=== PATIENT | male | born 1975 | race African-American/Black ===

== ENCOUNTER 2022-12-11 01:02 | Day surgery (SDC) | payer MEDICARE, MEDICAID, SELFPAY ==
[2022-12-03 11:40] VITALS: BMI 24.3
[2022-12-11 09:08] VITALS: BP 142/90; PULSE 92; RESP 18; TEMP 36.4; O2SAT 100; BMI 22.7
[2022-12-11] MEDS: LACTATED RINGERS 1,000 ML 150 ML IV CONT (09:17)
--- NOTE | 2022-12-11 09:52 | P.PNAN_ITS ---
Anes - Initial Pre Proc Eval Procedure: Operation Date: 12/11/22 09:30 Proposed Procedures p Colonoscopy - Jerry Ordonez MD Date/Time: 12/11/22 09:52 Surgeon: Jerry Ordonez MD Pre Op Diagnosis: Diarrhea,abdominal pain, Patient Data Age: 47 Gender: M Height: 1.85 m Weight: 78.3 kg Last Vital Signs Temp 97.6 F 12/11/22 09:08 Pulse 92 12/11/22 09:08 Resp 18 12/11/22 09:08 BP 142/90 H 12/11/22 09:08 Pulse Ox 100 12/11/22 09:08 O2 Del Method Room Air 12/11/22 09:08 Allergies Allergy/AdvReac Type Severity Reaction Status Date / Time No Known Allergies Allergy Verified 12/11/22 09:07 Home Medications Medication Instructions Recorded Confirmed Type dhhydnt-djohfuewvwfya-pgeiznsw 2 tablet PO BID 01/15/21 12/11/22 History [Excedrin Migraine] lisinopril 40 mg tablet 40 mg PO DAILY 01/15/21 12/11/22 History gabapentin 600 mg tablet 600 mg PO TID 12/03/22 12/11/22 History Patient hx anesthesia problems: none Family hx anesthesia problems: none Results Review: All pre-operative results and documents have been reviewed as part of the pre- operative evaluation. [facility] Past Medical History Medical History (Updated 11/20/22 @ 12:36 by Michelle Fagan APN-Susan) Abdominal pain Abnormal CT scan Diarrhea Hypertension Surgical History Surgical History History of ankle surgery Social History Social History Smoking status: Former smoker Tobacco type: cigarettes Alcohol intake: never Substance use: never Substance use type: does not use Living arrangements: alone Spiritual care concerns: No Anes - Eval Final PreProcedure Day of Procedure 12/11/22 09:52 Patient weight: normal Heart: regular rate and rhythm Lungs: clear to auscultation Airway: Mallampati scale class II Neurological: alert and oriented Last oral intake: >/= 8 hours ASA classification: II Emergent: no Anesthetic plan: proceed Anesthesia type and monitoring: general GIVS and standard monitoring Results Review: All pre-operative results and documents have been reviewed as part of the pre- operative evaluation. Informed Consent: The patient's anesthetic plan and its attendant risks and benefits were discussed with the patient/family/POA. Questions were solicited and answers provided to the satisfaction of the patient/family/POA.
--- NOTE | 2022-12-11 10:04 | WPDHPUPDATE1 ---
History and Physical Update Update Date/Time: 12/11/22 10:04 History and Physical has been reviewed, including an updated exam of the patient. There are NO changes in the patient's condition. Risks, benefits, and alternatives have been discussed and questions answered. Patient agrees to proceed with procedure.
[2022-12-11 10:20] VITALS: BP 96/58; PULSE 98; RESP 27; O2SAT 100
[2022-12-11 10:30] VITALS: BP 121/85; PULSE 95; RESP 20; O2SAT 100
[2022-12-11 10:40] VITALS: BP 142/90; PULSE 100; RESP 22; O2SAT 96
== END 2022-12-11 11:23 | disposition home or self-care (01) ==
PROVIDERS: PCP Internal Medicine; Visit Provider Internal Medicine Gastroenterology
PROC: 0DJD8ZZ Inspection of Lower Intestinal Tract, Via Natural or Artificial Opening Endoscopic (ICD-10-PCS; CPT 45378; principal; 2022-12-11 09:30)
DX: K52.9 Noninfective gastroenteritis and colitis, unspecified (principal); I10 Essential (primary) hypertension; Z79.82 Long term (current) use of aspirin; Z87.891 Personal history of nicotine dependence
CPT/HCPCS: 45380; 88305; J2704; J7120

== ENCOUNTER 2023-02-12 11:57 | Outpatient (CLI) | payer MEDICARE, MEDICAID, SELFPAY ==
[2023-02-12 12:46] LABS: Hematocrit 39.9 % (42.0-52.0); Hemoglobin 12.4 g/dL (14.0-18.0); Mean Corpuscular HGB Conc 31.1 g/dl (32-36); Mean Corpuscular Hemoglobin 26.8 pg (26-34); Mean Corpuscular Volume 86.4 fl (80-100); Mean Platelet Volume 8.7 fl (7.4-10.4); Platelet Count Result 470 k/mm3 (150-375); Red Blood Count 4.62 M/mm3 (4.6-6.20); White Blood Count 9.8 K/mm3 (4.5-10.0)
[2023-02-12 13:02] LABS: Alanine Aminotransferase 18 U/L (6-50); Albumin Level 4.2 g/dL (3.5-5.1); Alkaline Phosphatase 103 U/L (38-126); Anion Gap 9 mmol/L (8-16); Aspartate Amino Transferase 22 U/L (17-59); Bilirubin,Total 0.7 mg/dL (0.2-1.3); Blood Urea Nitrogen 14 mg/dL (9-20); CRP 2.7 mg/dL (<1.0); Calcium 9.9 mg/dL (8.4-10.2); Carbon Dioxide 32 mmol/L (22-30); Chloride 100 mmol/L (98-107); Estimated Glomerular Filt Rate > 60; Glucose 96 mg/dL (65-110); Potassium 3.8 mmol/L (3.4-5.0); Sodium 141 mmol/L (137-145)
[2023-02-12 13:36] LABS: Hepatitis B Surface Antigen Negative (Negative)
[2023-02-12 13:38] LABS: Erythrocyte Sedimentation Rate 26 mm/hr (0-20)
[2023-02-12 13:53] LABS: Hepatitis B Surface Anti Res Negative
[2023-02-16 12:31] LABS: Hepatitis B Core Ab Total Nonreactive (Nonreactive)
[2023-02-17 15:59] LABS: NIL 0.01 IU/mL; Quantiferon TB Plus, 1T NEGATIVE (NEGATIVE)
== END 2023-02-12 11:58 | disposition home or self-care (01) ==
LOC: ANHLAB 12:09
PROVIDERS: PCP Internal Medicine; Visit Provider Internal Medicine Gastroenterology
DX: K51.90 Ulcerative colitis, unspecified, without complications (principal); K52.9 Noninfective gastroenteritis and colitis, unspecified; I10 Essential (primary) hypertension
CPT/HCPCS: 36415; 80053; 85027; 85652; 86140; 86480; 86704; 86706; 87340

== ENCOUNTER 2023-08-22 08:06 | Outpatient (CLI) | payer MEDICARE, MEDICAID, SELFPAY ==
[2023-08-22 08:50] LABS: Hematocrit 39.5 % (42.0-52.0); Hemoglobin 12.3 g/dL (14.0-18.0); Mean Corpuscular HGB Conc 31.1 g/dl (32-36); Mean Corpuscular Hemoglobin 26.5 pg (26-34); Mean Corpuscular Volume 84.9 fl (80-100); Mean Platelet Volume 8.6 fl (7.4-10.4); Platelet Count Result 397 k/mm3 (150-375); Red Blood Count 4.65 M/mm3 (4.6-6.20); Red Cell Distribution Width 17.2 % (11.5-14.5)
[2023-08-22 09:09] LABS: Alanine Aminotransferase 42 U/L (6-50); Albumin Level 4.3 g/dL (3.5-5.1); Alkaline Phosphatase 514 U/L (38-126); Anion Gap 8 mmol/L (4-12); Aspartate Amino Transferase 56 U/L (17-59); Bilirubin,Total 1.3 mg/dL (0.2-1.3); Blood Urea Nitrogen 14 mg/dL (9-20); CRP 0.6 mg/dL (<1.0); Calcium 9.3 mg/dL (8.4-10.2); Carbon Dioxide 31 mmol/L (22-30); Chloride 104 mmol/L (98-107); Estimated Glomerular Filt Rate > 60; Glucose 96 mg/dL (65-110); Potassium 3.4 mmol/L (3.4-5.0); Sodium 143 mmol/L (137-145)
[2023-08-22 09:38] LABS: Erythrocyte Sedimentation Rate 27 mm/hr (0-20)
== END 2023-08-22 08:07 | disposition home or self-care (01) ==
LOC: ANHLAB 08:09
PROVIDERS: PCP Internal Medicine; Visit Provider Internal Medicine Gastroenterology
DX: K51.90 Ulcerative colitis, unspecified, without complications (principal); K52.9 Noninfective gastroenteritis and colitis, unspecified
CPT/HCPCS: 36415; 80053; 85027; 85652; 86140

== ENCOUNTER 2024-02-19 08:23 | Day surgery (SDC) | payer MEDICARE, MEDICAID, SELFPAY ==
[2023-12-26 13:27] VITALS: BMI 22.3
[2024-02-02 11:28] VITALS: BMI 23.6
[2024-02-19 10:04] VITALS: BP 145/98; PULSE 88; RESP 18; TEMP 37.3; O2SAT 98; BMI 23.6
[2024-02-19] MEDS: LACTATED RINGERS 1,000 ML 150 ML IV CONT (10:30)
--- NOTE | 2024-02-19 10:41 | PM.HPGS ---
History of Present Illness History of Present Illness Consent: Risks, benefits, and alternatives have been discussed and questions answered. Patient agrees to proceed with procedure. Chief complaint: Ulcerative colitis Narrative: Miki Velez is a 48 year old male referred for follow up colonoscopy. Patient has a distant history of ulcerative colitis. Apparently treated many years ago. he stopped his medication and remained symptom free for many years. One year ago colonoscopy was performed and revealed diffuse pancolitis consistent with ulcerative colitis flare. Patient initially given prednisone and mesalamine. He has remained on mesalamine 1.2g p.o. t.i.d.. Currently he reports his bowel habits are normal. He may even have a tendency towards constipation. He denies abdominal pain or blood in his stool. He returns today for follow-up colonoscopy to assess response to therapy. Family history is noncontributory. Patient has a past medical history of ankle neuropathy and orthopedic problems. Review of Systems Review of Systems: All systems reviewed & are unremarkable except as noted in HPI and below PMFSH Past Medical History Medical History Abdominal pain Abnormal CT scan Back pain Bilateral sacroiliitis Diarrhea Fatigue Hypertension Normocytic anemia Ulcerative colitis Surgical History Surgical History History of ankle surgery Social History Social History Smoking status: Former smoker Tobacco type: cigarettes Alcohol intake: never Drinks per week: 1 Substance use: never Substance use type: does not use Living arrangements: alone Spiritual care concerns: No Meds Home Medications and Allergies Home Medications ?Medication ?Instructions ?Recorded ?Confirmed ?Type lisinopril 40 mg tablet 40 mg PO DAILY 01/15/21 02/19/24 History gabapentin 600 mg tablet 600 mg PO TID 12/03/22 02/19/24 History mesalamine 1.2 gram tablet,delayed 3.6 g (3 x 1.2 gram) PO DAILY 1 08/21/23 02/19/24 Rx release (Lialda) month #90 tabs polyethylene glycol 3350 17 17 g PO DAILY PRN constipation 12/26/23 02/19/24 Rx gram/dose oral powder (Miralax) #238 grams Allergies Allergy/AdvReac Type Severity Reaction Status Date / Time No Known Allergies Allergy Verified 02/19/24 10:03 Vital Signs Vital Signs - 24 hr 02/19/24 10:04 Temperature 99.2 F Pulse Rate 88 Respiratory Rate 18 Blood Pressure 145/98 H Pulse Oximetry 98 Oxygen Delivery Room Air Exam Narrative: Physical exam reveals patient to be alert. Vital signs stable. HEENT exam is unremarkable. Patient is anicteric. Lungs are clear to auscultation and to percussion. Heart is without murmur or extra sounds. Abdomen bowel sounds are present soft nontender with no hepatosplenomegaly. Digital external rectal exam is normal. Assessment and Plan Assessment and plan (1) Ulcerative colitis: Code(s): K51.90 - Ulcerative colitis, unspecified, without complications Status: Acute Assessment and Plan: Diagnosis of ulcerative colitis. Plan for colonoscopy at this time after 1 year treatment with mesalamine. Patient denies symptoms. He denies abdominal pain and bleeding at this time. His bowel habits were reported to be normal.
--- NOTE | 2024-02-19 11:14 | P.PNAN_ITS ---
Anes - Initial Pre Proc Eval Procedure: Operation Date: 02/19/24 11:15 Proposed Procedures p Diagnostic Colonoscopy - Darius Davis MD Date/Time: 02/19/24 11:14 Surgeon: Darius Davis MD Pre Op Diagnosis: Ulcerative colitis Patient Data Age: 48 Gender: M Height: 1.85 m Weight: 81 kg Last Vital Signs Temp 37.3 C 02/19/24 10:04 Pulse 88 02/19/24 10:04 Resp 18 02/19/24 10:04 BP 145/98 H 02/19/24 10:04 Pulse Ox 98 02/19/24 10:04 O2 Del Method Room Air 02/19/24 10:04 Allergies Allergy/AdvReac Type Severity Reaction Status Date / Time No Known Allergies Allergy Verified 02/19/24 10:03 Home Medications ?Medication ?Instructions ?Recorded ?Confirmed ?Type lisinopril 40 mg tablet 40 mg PO DAILY 01/15/21 02/19/24 History gabapentin 600 mg tablet 600 mg PO TID 12/03/22 02/19/24 History mesalamine 1.2 gram tablet,delayed 3.6 g (3 x 1.2 gram) PO DAILY 1 08/21/23 02/19/24 Rx release (Lialda) month #90 tabs polyethylene glycol 3350 17 17 g PO DAILY PRN constipation 12/26/23 02/19/24 Rx gram/dose oral powder (Miralax) #238 grams Patient hx anesthesia problems: none Family hx anesthesia problems: none Results Review: All pre-operative results and documents have been reviewed as part of the pre- operative evaluation. [facility] Past Medical History Medical History Normocytic anemia Fatigue Bilateral sacroiliitis Back pain Ulcerative colitis Abdominal pain Diarrhea Abnormal CT scan Hypertension Surgical History Surgical History History of ankle surgery Social History Social History Smoking status: Former smoker Tobacco type: cigarettes Alcohol intake: never Drinks per week: 1 Substance use: never Substance use type: does not use Living arrangements: alone Spiritual care concerns: No Anes - Eval Final PreProcedure Day of Procedure 02/19/24 11:14 Patient weight: normal Heart: regular rate and rhythm Lungs: clear to auscultation Airway: Mallampati scale class II Neurological: alert and oriented Last oral intake: >/= 8 hours ASA classification: II Emergent: no Anesthesia type and monitoring: general GIVS and standard monitoring Results Review: All pre-operative results and documents have been reviewed as part of the pre- operative evaluation. Informed Consent: The patient's anesthetic plan and its attendant risks and benefits were discussed with the patient/family/POA. Questions were solicited and answers provided to the satisfaction of the patient/family/POA.
[2024-02-19 11:44] VITALS: BP 100/74; PULSE 100; RESP 14; O2SAT 98
[2024-02-19 11:54] VITALS: BP 133/88; PULSE 88; RESP 16; O2SAT 100
--- NOTE | 2024-02-19 12:01 | WPDANESPN ---
Anes - Prog Note Post-Op Date/Time: 02/19/24 12:01 Cardiovascular status: normal Respiratory status: normal Airway patency: baseline Mental status: baseline Post-Op hydration status: normal Vital Signs: Last Vital Signs Temp 37.3 C 02/19/24 10:04 Pulse 100 02/19/24 11:44 Resp 14 02/19/24 11:44 BP 100/74 02/19/24 11:44 Pulse Ox 98 02/19/24 11:44 O2 Del Method Room Air 02/19/24 11:44 Pain Score (VAS): 0/10 I/O: Intake & Output 02/18/24 02/19/24 02/19/24 23:59 07:59 15:59 Intake Total 300 Balance 300 Patient Feedback: Patient satisfied with anesthetic care.
[2024-02-19 12:04] VITALS: BP 142/95; PULSE 85; RESP 16; O2SAT 99
== END 2024-02-19 12:40 | disposition home or self-care (01) ==
PROVIDERS: PCP Internal Medicine; Visit Provider Internal Medicine Gastroenterology
PROC: 0DJD8ZZ Inspection of Lower Intestinal Tract, Via Natural or Artificial Opening Endoscopic (ICD-10-PCS; CPT 45378; principal; 2024-02-19 11:15)
DX: K51.00 Ulcerative (chronic) pancolitis without complications (principal); K63.3 Ulcer of intestine
CPT/HCPCS: 45380

== ENCOUNTER 2024-02-19 08:45 | Outpatient (NON) | payer MEDICARE, MEDICAID, SELFPAY | END 2024-02-19 08:46 | disposition home or self-care (01) | LOC: ANHLAB 02-20 08:47 | PROVIDERS: PCP Internal Medicine; Visit Provider Internal Medicine Gastroenterology | DX: K51.90 Ulcerative colitis, unspecified, without complications (principal) | CPT/HCPCS: 88305 ==

== ENCOUNTER 2024-02-26 08:33 | Outpatient (CLI) | payer MEDICARE, MEDICAID, SELFPAY ==
[2024-02-26 09:33] LABS: Hematocrit 42.9 % (42.0-52.0); Hemoglobin 13.6 g/dL (14.0-18.0); Mean Corpuscular HGB Conc 31.7 g/dl (32-36); Mean Corpuscular Volume 85.1 fl (80-100); Mean Platelet Volume 8.4 fl (7.4-10.4); Platelet Count Result 398 k/mm3 (150-375); Red Blood Count 5.04 M/mm3 (4.6-6.20); Red Cell Distribution Width 14.5 % (11.5-14.5); White Blood Count 7.8 K/mm3 (4.5-10.0)
[2024-02-26 09:55] LABS: Alanine Aminotransferase 63 U/L (6-50); Albumin Level 4.1 g/dL (3.5-5.1); Alkaline Phosphatase 549 U/L (38-126); Anion Gap 6 mmol/L (4-12); Aspartate Amino Transferase 75 U/L (17-59); Bilirubin,Total 0.9 mg/dL (0.2-1.3); Blood Urea Nitrogen 12 mg/dL (9-20); CRP 1.3 mg/dL (<1.0); Calcium 9.8 mg/dL (8.4-10.2); Carbon Dioxide 29 mmol/L (22-30); Chloride 104 mmol/L (98-107); Estimated Glomerular Filt Rate > 60; Glucose 120 mg/dL (65-110); Potassium 4.3 mmol/L (3.4-5.0); Sodium 139 mmol/L (137-145)
[2024-02-26 13:26] LABS: Erythrocyte Sedimentation Rate 13 mm/hr (0-20)
== END 2024-02-26 08:34 | disposition home or self-care (01) ==
LOC: ANHLAB 08:38
PROVIDERS: PCP Internal Medicine; Visit Provider Internal Medicine Gastroenterology
DX: K51.90 Ulcerative colitis, unspecified, without complications (principal); K52.9 Noninfective gastroenteritis and colitis, unspecified
CPT/HCPCS: 36415; 80053; 85027; 85652; 86140

== ENCOUNTER 2024-03-02 10:23 | Outpatient (CLI) | payer MEDICARE, MEDICAID, SELFPAY ==
[2024-03-08 18:18] LABS: Calprotectin, Stool 3880 mcg/g
== END 2024-03-02 10:24 | disposition home or self-care (01) ==
LOC: ANHLAB 10:24
PROVIDERS: PCP Internal Medicine; Visit Provider Internal Medicine Gastroenterology
DX: K51.90 Ulcerative colitis, unspecified, without complications (principal)
CPT/HCPCS: 83993

== ENCOUNTER 2024-05-26 10:00 | Outpatient (CLI) | payer MEDICARE, MEDICAID, SELFPAY ==
--- NOTE | ~2024-05-26 | US_ITS ---
Limited Abdominal Sonogram: Real-time sonographic imaging of the right upper quadrant was performed. Clinical History: Ulcerative colitis Findings: The liver appears normal with no evidence of mass lesion or bile duct dilatation. Main por ry vein demonstrates normal direction of flow. The gallbladder is well distended, and appears normal with no evidence of gallstone or wall thickening. The common bile duct measures 4 mm. The visualize d pancreas, aorta, and IVC are unremarkable. Impression: No significant abnormality seen. Reviewed, dictated and finalized at location . Impression: No significant abnormality seen.
== END 2024-05-26 10:01 | disposition home or self-care (01) ==
PROVIDERS: PCP Internal Medicine Gastroenterology; Visit Provider Internal Medicine Gastroenterology
DX: K51.90 Ulcerative colitis, unspecified, without complications (principal); R10.9 Unspecified abdominal pain; R74.8 Abnormal levels of other serum enzymes
CPT/HCPCS: 76705

== ENCOUNTER 2024-09-22 09:05 | Outpatient (CLI) | payer MEDICARE, MEDICAID, SELFPAY ==
--- OUTSIDE RECORDS SUMMARY | 2024-09-22 09:14 | XMS_ITS | Encounter Summary ---
Author Organization [facility] Address [address] [place] [address] Care Team Providers Care Communications Writer Name Role Phone Shea Chauhan RN Unavailable Unavailable Juancho Medina MD Primary Care Provider [phone] Scottie Velez MD Primary Care Provider [phone] Reason for Visit * Reason Onset Date Comments General 11/18/2018 Encounter Details Date Type Department Care Team (Late st Contact Info) Description 11/18/2018 Telephone [facility] - [facility] [address] [place] [phone] Jenna Palmer General Social History Tobacco Use Types Packs/Day Years Used Date Smoking Tobacco: Some Days Cigars Smokeless Tobacco: Never Comments:cutting back Alcohol Use Standard Drinks/Week Comments Not Asked 6 (1 standard drink = 0.6 oz pur e alcohol) Sex and Gender Information Value Date Recorded Sex Assigned at Not on file Legal Sex Male 11:37 AM CDT Gender Identity Not on file Sexual Orientation Not on file documented as of this encounter Functional Status * Is person deaf or have serious hearing difficulty? Answer Date of Assessment Author No 10/07/2018 4:30 PM Chaparrita Aguilar RN * Is person blind or have serious difficulty seeing? Answer Date of Assessment Author No 10/07/2018 4:30 PM Chaparrita Aguilar RN * Does person have serious difficulty walking/climbing stairs? Answer Date of Assessment Author No 10/07/2018 4:30 PM Chaparrita Aguilar RN * Does person have difficulty dressing/bathing? Answer Date of Assessment Author No 10/07/2018 4:30 PM CDT Chaparrita Boyce RN * Does person have difficulty doing errands alone? Answer Date of Assessment Author No 10/07/2018 4:30 PM CDT Chaparrita Boyce RN documented as of this encounter Mental Status * Does person have difficulty concentrating/remembering/making decisions? Answer Entry Date Author No 10/07/2018 4:30 PM CDT Chaparrita Boyce RN documented in this encounter Miscellaneous Notes * Telephone Encounter - Jenna Palmer - 11/18/2018 11:24 AM CDT Mr. Velez called several times requesting to speak with nurse Kimmie, I explained to patient that she was not in the office at this time and I can route a message for another nurse that's assisting her while she is out. He states that he needs someone to call him MODE about an order and medications. Patient call back number is [phone]. documented in this encounter Plan of Treatment Not on file documented as of this encounter Visit Diagnoses Not on filedocumented in this encounter Additional Health Concerns Infection Onset Date Last Indicated Resolved Time COVID-19 Under Investigation 04/08/2020 04/08/2020 04/08/2020 12:50 PM RUG CLIPPER COVID-19 Confirmed 04/08/2020 04/08/2020 4:33 AM RUG CLIPPER documented as of this encounter Care Teams Communications Writer Relationship Specialty Start Date End Date Juancho Medina MD [address] [place] [phone] PCP - General 12/03/17 08/24/24 Scottie Velez MD [address] [place] [phone] PCP - General Gastroenterology 08/25/24 Shea Chauhan RN Registered Nurse 09/03/17 documented as of this encounter
--- OUTSIDE RECORDS SUMMARY | 2024-09-22 09:14 | XMS_ITS | Encounter Summary ---
Author Organization [facility] Address [address] [place] [address] Care Team Providers Care Junior Systems Engineer Name Role Phone Shea Chauhan RN Unavailable Unavailable Juancho Medina MD Primary Care Provider [phone] Scottie Velez MD Primary Care Provider [phone] Reason for Visit * Reason Onset Date Comments General 01/01/2018 Encounter Details Date Type Department Care Team (Late st Contact Info) Description 01/01/2018 Telephone [facility] [address] [place] [phone] Jenna Palmer General Social History Tobacco Use Types Packs/Day Years Used Date Smoking Tobacco: Some Days Cigars Smokeless Tobacco: Never Comments:cutting back Alcohol Use Standard Drinks/Week Comments No 0 (1 standard drink = 0.6 oz pur e alcohol) Sex and Gender Information Value Date Recorded Sex Assigned at Not on file Legal Sex Male 11:37 AM CDT Gender Identity Not on file Sexual Orientation Not on file documented as of this encounter Functional Status * Is person deaf or have serious hearing difficulty? Answer Date of Assessment Author No 06/05/2016 8:16 AM ADWOAT Marylou Christianson RN * Is person blind or have serious difficulty seeing? Answer Date of Assessment Author No 06/05/2016 8:16 AM Marylou Rendon RN * Does person have serious difficulty walking/climbing stairs? Answer Date of Assessment Author No 06/05/2016 8:16 AM Marylou Rendon RN * Does person have difficulty dressing/bathing? Answer Date of Assessment Author No 06/05/2016 8:16 AM Marylou Rendon RN * Does person have difficulty doing errands alone? Answer Date of Assessment Author No 06/05/2016 8:16 AM Marylou Rendon RN documented as of this encounter Mental Status * Does person have difficulty concentrating/remembering/making decisions? Answer Entry Date Author No 06/05/2016 8:16 AM Marylou Rendon RN documented in this encounter Plan of Treatment Not on file documented as of this encounter Visit Diagnoses Not on filedocumented in this encounter Additional Health Concerns Infection Onset Date Last Indicated Resolved Time COVID-19 Under Investigation 04/08/2020 04/08/2020 04/08/2020 12:50 PM TAILOR'S AIDE COVID-19 Confirmed 04/08/2020 04/08/2020 4:33 AM TAILOR'S AIDE documented as of this encounter Care Teams Junior Systems Engineer Relationship Specialty Start Date End Date Juancho Medina MD [address] [place] [phone] PCP - General 12/03/17 08/24/24 Scottie Veelz MD [address] [place] [phone] PCP - General Gastroenterology 08/25/24 Shea Chauhan RN Registered Nurse 09/03/17 documented as of this encounter
--- OUTSIDE RECORDS SUMMARY | 2024-09-22 09:14 | XMS_ITS | Encounter Summary ---
Author Organization [facility] Address [address] [place] [address] Care Team Providers Care Refrigeration Specialist Name Role Phone Shea Chauhan RN Unavailable Unavailable Scottie Velez MD Primary Care Provider [phone] Encounter Details Date Type Department Care Team (Late st Contact Info) Description 09/20/2024 Orders Only [facility] - [facility] Surgery [address] [place] [phone] Lacey Miles PA [address] [place] [phone] Bilateral ankle pain, unspecified chronicity Social History Tobacco Use Types Packs/Day Years Used Date Smoking Tobacco: Former Cigars Smokeless Tobacco: Former Alcohol Use Standard Drinks/Week Comments Not Currently 0 (1 standard drink = 0.6 oz pur e alcohol) PHQ-2 Answer Date Recorded Patient Health Questionnaire-2 Score 0 01/22/2024 Sex and Gender Information Value Date Recorded Sex Assigned at Not on file Legal Sex Male 11:37 AM CDT Gender Identity Not on file Sexual Orientation Not on file documented as of this encounter Functional Status * Is person deaf or have serious hearing difficulty? Answer Date of Assessment Author No 04/08/2020 6:00 PM Meseret Jules RN * Is person blind or have serious difficulty seeing? Answer Date of Assessment Author No 04/08/2020 6:00 PM Meseret Jules RN * Does person have serious difficulty walking/climbing stairs? Answer Date of Assessment Author Yes 04/08/2020 6:00 PM Meseret Jules RN * Does person have difficulty dressing/bathing? Answer Date of Assessment Author Yes 04/08/2020 6:00 PM Meseret Jules RN * Does person have difficulty doing errands alone? Answer Date of Assessment Author Yes 04/08/2020 6:00 PM Meseret Jules RN documented as of this encounter Mental Status * Does person have difficulty concentrating/remembering/making decisions? Answer Entry Date Author No 04/08/2020 6:00 PM Meseret Jules RN documented in this encounter Plan of Treatment Scheduled Orders Name Type Priority Associated Diagnoses Orde r Schedule XR Ankle Bilateral 1Vw Imaging Routine Bilateral ankle pain, unspecified chronicity 1 Occurrences starting 09/20/2024 until 09/20/2025 documented as of this encounter Goals Goal Patient Goal Type Associated Problems Recent Progress Patient-Stated? Author PAIN General No Edilson Han RN Note: Expected end date: ongoing Patient's pain/discomfort is manageable. Interventions: Mobility General Improving( 11:13 AM CDT) No Akanksha Romero RN Note: Expected end date: 03/09/21 The goal is to maintain or improve your mobility at the optimum level for you. Interventions: PT documented as of this encounter Visit Diagnoses Diagnosis Bilateral ankle pain, unspecified chronicity- Primary documented in this encounter Care Teams Refrigeration Specialist Relationship Specialty Start Date End Date Scottie Velez MD [address] [place] [address] PCP - General Gastroenterology 08/25/24 Shea Chauhan, RN Registered Nurse 09/03/17 documented as of this encounter
--- OUTSIDE RECORDS SUMMARY | 2024-09-22 09:14 | XMS_ITS | Patient Health Record ---
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 [place] [address] [place] [address] 03/31/2024 Master Mihai Femoral anteversion of both lower extremities Q65.89 ASSESSMENTS Encounter Date Diagnosis Assessment Notes Treatment Notes Treatment Clinical Notes 03/31/2024 Femoral anteversion of both lower extremities (ICD-10 - Q65.89) Miki appears to have a tough problem. There appears to be significant femoral anteversion status post his surgery and I discussed with him that the procedure that would potentially help him would be a another de-rotational osteotomy to correct the anteversion of the femur. I discussed with him that this is a surgery that I do not do nor my skilled in. I did give him referral to see if few orthopedic surgeons at [facility] in [facility] especially trauma physicians that potentially do this more than I do. He was in understanding of this. I will see him back on an as-needed basis. 03/31/[address] scan of the femurs of bilateral hips was brought in by the patient I reviewed it today. It demonstrates increased rotation of bilateral femurs based on the CT scan. PLAN OF TREATMENT No Information Insurance Providers Payer Name Payer Address Payer Phone Subscriber Number Group Number Insured Name Patient Relationship to Insured Coverage Start Date Coverage End Date [place] [address] [address] [place] [phone] [id number] Miki Velez Self - patient is the insured 5
--- OUTSIDE RECORDS SUMMARY | 2024-09-22 09:14 | XMS_ITS | Encounter Summary ---
Author Organization [facility] Address [address] [place] [address] Care Team Providers Care Apparatus Operator Name Role Phone Shea Chauhan RN Unavailable Unavailable Juancho Medina MD Primary Care Provider [phone] Scottie Velez MD Primary Care Provider [phone] Reason for Visit * Reason Onset Date Comments MEDICATION REFILL 11/19/2023 Encounter Details Date Type Department Care Team (Late st Contact Info) Description 11/19/2023 Telephone [facility] Central[facility] Scheduling [address] [place] [phone] Yash Hanks MD [address] [place] [phone] MEDICATION REFILL Social History Tobacco Use Types Packs/Day Years Used Date Smoking Tobacco: Former Cigars Smokeless Tobacco: Former Alcohol Use Standard Drinks/Week Comments Not Currently 0 (1 standard drink = 0.6 oz pur e alcohol) PHQ-2 Answer Date Recorded PHQ2 TOTAL SCORE 0 04/24/2021 Sex and Gender Information Value Date Recorded [...] Meseret Jules RN documented in this encounter Miscellaneous Notes * Telephone Encounter - Elmer Barton - 11/19/2023 12:07 PM CDT Patient needs a medication refill for: gabapentin (Neurontin) 600 MG tablet documented in this encounter Plan of Treatment Not on file documented as of this encounter Goals Goal [...] Diagnoses Not on filedocumented in this encounter Care Teams Apparatus Operator Relationship Specialty Start Date End Date Juancho Medina MD [address] [place] [phone] PCP - General 12/03/17 08/24/24 Scottie Velez MD [address] [place] [address] PCP - General Gastroenterology 08/25/24 Shea Chahuan RN Registered Nurse 09/03/17 documented as of this encounter
--- OUTSIDE RECORDS SUMMARY | 2024-09-22 09:14 | XMS_ITS | Encounter Summary ---
Author Organization [facility] Address [address] [place] [address] Care Team Providers Care Trail Maintenance Worker Name Role Phone Shea Chauhan RN Unavailable Unavailable Juancho Medina MD Primary Care Provider [phone] Scottie Velez MD Primary Care Provider [phone] Reason for Visit * Reason Onset Date Comments MEDICATION REFILL 05/01/2020 Encounter Details Date Type Department Care Team (Late st Contact Info) Description 05/01/2020 Refill [facility] [address] [facility] [place] [address] Evy Parks, RN [address] [facility] [address] [place] [address] MEDICATION REFILL Social History Tobacco Use Types Packs/Day Years Used Date Smoking Tobacco: Former Cigars Smokeless Tobacco: Former Alcohol Use Standard Drinks/Week Comments Yes 0 (1 standard drink = 0.6 oz pure alcohol) 1 DRINK MAYBE 2-3 TIMES [facility] Sex and Gender Information Value Date Recorded Sex Assigned at Not on file Legal Sex Male 11:37 AM CDT Gender Identity Not on file Sexual Orientation Not on file COVID-19 Exposure Response Date Recorded In the last month, have you been in contact with someone who was confirmed or suspected to have Coronavirus / COVID-19? No / Unsure 04/27/2020 12:26 PM LIBRARY MEDIA ASSISTANT documented as of this encounter Functional Status * Is person deaf or have serious hearing difficulty? Answer Date of Assessment Author No 04/08/2020 6:00 PM LIBRARY MEDIA ASSISTANT Meseret Kapoor RN * Is person blind or have serious difficulty seeing? Answer Date of Assessment Author No 04/08/2020 6:00 PM LIBRARY MEDIA ASSISTANT Meseret Kapoor RN * Does person have serious difficulty walking/climbing stairs? Answer Date of Assessment Author Yes 04/08/2020 6:00 PM Meseret Jules RN * Does person have difficulty dressing/bathing? Answer Date of Assessment Author Yes 04/08/2020 6:00 PM LIBRARY MEDIA ASSISTANT Meseret Kapoor RN * Does person have difficulty doing errands alone? Answer Date of Assessment Author Yes 04/08/2020 6:00 PM Meseret Jules RN documented as of this encounter Mental Status * Does person have difficulty concentrating/remembering/making decisions? Answer Entry Date Author No 04/08/2020 6:00 PM Meserte Jules RN documented in this encounter Miscellaneous Notes * Telephone Encounter - Evy Parks RN - 05/01/2020 5:18 PM CST Mr. Velez called in to request one more refill of his percocet. He states that the pain is improving a lot since his second hip surgery and he is starting to wean off the medication. Last hydrocodone (#20) prescribed on 04/27/20. Last oxycodone (#12) prescribed on 04/10/20. Mr. Velez next comes to the office on 05/12. He is requesting a right knee injection at that time and a lace up ankle brace. ARY MEDIA ASSISTANT documented in this encounter Plan of Treatment Not on file documented as of this encounter Goals Goal Patient Goal Type Associated Problems Recent Progress Patient-Stated? Author PAIN General No Edilson Han RN Note: Expected end date: ongoing Patient's pain/discomfort is manageable. Interventions: documented as of this encounter Visit Diagnoses Not on filedocumented in this encounter Care Teams Trail Maintenance Worker Relationship Specialty Start Date End Date Juancho Medina MD [address] [place] [phone] PCP - General 12/03/17 08/24/24 Scottie Velez MD [address] [place] [address] PCP - General Gastroenterology 08/25/24 Shea Chauhan RN Registered Nurse 09/03/17 documented as of this encounter
--- OUTSIDE RECORDS SUMMARY | 2024-09-22 09:14 | XMS_ITS | Encounter Summary ---
Author Organization [facility] Address [address] [place] [address] Care Team Providers Care Live Truck Technician Name Role Phone Shea Chauhan RN Unavailable Unavailable Juancho Medina MD Primary Care Provider [phone] Scottie Velez MD Primary Care Provider [phone] Reason for Visit * Reason Onset Date Comments Question 08/25/2018 Appointment 08/25/2018 Encounter Details Date Type Department Care Team (Late st Contact Info) Description 08/25/2018 Telephone [facility] [address] [place] [address] Chi Iverson, DO [address] [facility] [address] [place] [phone] Question; Appointment Social History Tobacco Use Types Packs/Day Years [...] 8:16 AM ADWOAT Marylou Christianson RN * Does person have serious difficulty walking/climbing stairs? Answer Date of Assessment Author No 06/05/2016 8:16 AM CDT Marylou Christianson RN * Does person have difficulty dressing/bathing? Answer Date of Assessment Author No 06/05/2016 8:16 AM CDT Marylou Christianson RN * Does person have difficulty doing errands alone? Answer Date of Assessment Author No 06/05/2016 8:16 AM CDT Marylou Christianson RN documented as of this encounter Mental Status * Does person have difficulty concentrating/remembering/making decisions? Answer Entry Date Author No 06/05/2016 8:16 AM CDT Marylou Christianson RN documented in this encounter Miscellaneous Notes * Telephone Encounter - Kimmie Oropeza RN - 08/25/2018 12:51 PM CDT Miki Velez called asking the reason why he was referred to Dr Marsh. He went to see him and didn't understand why. referred him to Neurology again. I explained to him that Dr Iverson wanted to assess his knees and hips (Bilat Proximal Femoral Derotation osteotomy). Pt express that he is worried that he is being passed to another provider. I stated that I will bring ' attention to 's notes. I will schedule appt with neurology for him as well. documented in this encounter Plan of Treatment Not on file documented as of this encounter Visit Diagnoses Not on filedocumented in this encounter Additional Health Concerns Infection Onset Date Last Indicated Resolved Time COVID-19 Under Investigation 04/08/2020 04/08/2020 04/08/2020 12:50 PM DESULFURIZER HAND COVID-19 Confirmed 04/08/2020 04/08/2020 4:33 AM DESULFURIZER HAND documented as of this encounter Care Teams Live Truck Technician Relationship Specialty Start Date End Date Juancho Medina MD [address] [place] [phone] PCP - General 12/03/17 08/24/24 Scottie Velez MD [address] [place] [address] PCP - General Gastroenterology 08/25/24 Shea Chauhan RN Registered Nurse 09/03/17 documented as of this encounter
--- OUTSIDE RECORDS SUMMARY | 2024-09-22 09:14 | XMS_ITS | Clinical Summary ---
Author Organization [facility] Address [address] [place] [address] Care Team Providers Care Oncologist Name Role Phone Unavailable Primary Care Provider Unavailabl e Allergies Active Allergy Reactions Criticality Noted Date Comments Cyclobenzaprine Hallucination,Other (See Comments) Medium 01/29/2022 Per patient with pain pills, causes pt to hallucinete Per patient Medications GABAPENTIN ORAL Take by mouth. Active MESALAMINE ORAL Take by mouth. Blood pressure Active lisinopriL (PRINIVIL) 40 mg tablet Take 1 Tablet by mouth daily. 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 Painful orthopaedic hardware 06/07/2021 Overview (10/17/2023): Added automatically from request for surgery [id number] Rupture of operation wound 05/15/2021 Overview (10/17/2023): Added automatically from request for surgery [id number] Cervical spondylosis without myelopathy 04/23/19 22 Leg pain, anterior, right 03/22/2021 Overview (10/17/2023): Added automatically from request for surgery [id number] Lumbar radiculopathy 02/12/2021 COVID-19 04/08/2020 Contracture of right hip joint 08/24/2019 Hip contracture, left 08/24/2019 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 08/24/2019 Acquired cavovarus deformity of right foot 04/19 Pain 04/19/2019 Flexion contracture of knee 2018 Peripheral musculoskeletal gait disorder 019 Reduction defect of lower extremity 2018 Acute post-operative pain 10/06/2018 Functional gait abnormality 05/25/2018 Tear of medial meniscus of knee 05/25/2018 Abnormal liver function tests 02/20/2018 Alcoholism 02/20/2018 Chronic low back pain 02/20/2018 Diabetes mellitus 02/20/2018 Hip pain 02/20/2018 Hyperuricemia 02/20/2018 Pain in limb 02/20/2018 Pain of knee joint on movement 02/20/2018 Pyrexia of unknown origin 02/20/2018 Seasonal allergies 02/20/2018 Sinus tachycardia 02/20/2018 Foot pain 08/15/2017 Hammer toe of right foot 05/30/2017 Essential hypertension 01/03/2017 Gastroesophageal reflux disease 01/03/2017 Neuropathy 01/03/2017 Type 2 diabetes mellitus wit hout complication, without long-term current use of insulin 01/03/2017 Equinus contracture of ankle 06/21/2016 Mass of elbow region, bilateral 04/01/2016 Mass of neck 04/01/2016 Mass of subcutaneous tissue of back 04/01/2016 Calcaneal spur 10/05/2015 Overview (10/17/2023): Description: Bilateral heel wedges, off the shelf Description: Bilateral heel wedges, off the shelf Encounters Date Type Department Care Team Description 08/31/2024 External Device Data [facility] ABSTRACTION Provider, Abstract 07/28/2024 External Device Data [facility] ABSTRACTION Provider, Abstract 07/27/2024 External Device Data [facility] ABSTRACTION Provider, Abstract from Last 3 Months Social History Tobacco Use Types Packs/Day Years Used Date Smoking Tobacco: Unknown Tobacco Cessation:Counseling Given: Not Answered Sex and Gender Information Value Date Recorded Sex Assigned at Not on file Legal Sex Male 3:46 PM CDT Gender Identity Not on file Sexual Orientation Not on file Last Filed Vital Signs Vital Sign Reading Time Taken Comments Blood Pressure 128/79 12/03/2023 9:52 AM CDT Pulse 75 12/03/2023 9:52 AM CDT Temperature 36.6 C (97.9 F) 12/03/2023 9:52 AM CDT Respiratory Rate - - Oxygen Saturation 96% 12/03/2023 9:52 AM CDT Inhaled Oxygen Concentration - - Weight 79.8 kg (176 lb) 12/03/2023 9:52 AM CDT Height 185.4 cm (6' 1) 12/03/2023 9:52 AM CDT Body Mass Index 23.22 12/03/2023 9:52 AM CDT Plan of Treatment Health Maintenance Due Date Last Done Comments DIABETES ANNUAL FOOT EXAM 1994 DIABETES MICROALBUMIN ANNUAL SCREEN 1994 LDL CHOLESTEROL ANNUAL 1994 HEPATITIS B VACCINES (1 of 3 - 19+ 3-dose series) 10/11/1995 FIT-DNA Q 3 years 2021 FIT/FOBT Q 1 year 2021 Flex Sig/CT Colonography Q 5 years 2021 DIABETES HBA1C Q 6 MONTHS 01/03/2022 07/04/2021, DIABETES ANNUAL RETINAL EXAM 10/29/2022, 02/27/2024, 10/29/2021, Additional history exists COVID-19 Vaccine (2023-2 5 season) 2023 03/27/2021, 08/03/2020, 07/06/2020 INFLUENZA VACCINE (#1) 2024 DTAP/TDAP/TD VACCINES (2 - T d or Tdap) 10/02/2026 10/02/2016 COLORECTAL SCREENING 02/18/2034 02/19/2024, 02/18/2024, 12/11/2022 Colorectal Cancer Screening 02/18/2034 Insurance MEDICARE PART A AND B [place]ICAID [place]
--- OUTSIDE RECORDS SUMMARY | 2024-09-22 09:14 | XMS_ITS | Encounter Summary ---
Author Organization [facility] Address [address] [place] [address] Care Team Providers Care Basket Weaver Name Role Phone Shea Chauhan RN Unavailable Unavailable Juancho Medina MD Primary Care Provider [phone] Scottie Velez MD Primary Care Provider [phone] Reason for Visit * Reason Onset Date Comments General 12/29/2017 Encounter Details Date Type Department Care Team (Late st Contact Info) Description 12/29/2017 Telephone [facility] [address] [place] [phone] Jenna Palmer General Social History Tobacco Use [...] of Assessment Author No 06/05/2016 8:16 AM ADOWAT Marylou Christianson RN * Is person blind [...] * Telephone Encounter - Jenna Palmer - 12/29/2017 10:21 AM CDT Patient called requesting a refill on medication from Dr. Iverson, patient also needs an updated PT referral. documented in this encounter Plan of Treatment Not on file documented as of this encounter Visit Diagnoses Not on filedocumented in this encounter Additional Health Concerns Infection Onset Date Last Indicated Resolved Time COVID-19 Under Investigation 04/08/2020 04/08/2020 04/08/2020 12:50 PM ATHLETICS DIRECTOR COVID-19 Confirmed 04/08/2020 04/08/2020 4:33 AM ATHLETICS DIRECTOR documented as of this encounter Care Teams Basket Weaver Relationship Specialty Start Date End Date Juancho Medina MD [address] [place] [phone] PCP - General 12/03/17 08/24/24 Scottie Velez MD [address] [place] [phone] PCP - General Gastroenterology 08/25/24 Shea Chauhan RN Registered Nurse 09/03/17 documented as of this encounter
--- OUTSIDE RECORDS SUMMARY | 2024-09-22 09:14 | XMS_ITS | Encounter Summary ---
Author Organization [facility] Address [address] [facility] [place] [address] Care Team Providers Care Drafter Electrical Name Role Phone Unknown, Provider Primary Care Provider UnavailShea Johnson RN Unavailable Unavailable Juancho Medina MD Primary Care Provider [phone] Scottie Velez MD Primary Care Provider [phone] Reason for Visit * Reason Onset Date Comments Refill Request 11/12/2017 Encounter Details Date Type Department Care Team (Late st Contact Info) Description 11/12/2017 Telephone [facility] [address] [place] [address] Chi Iverson, DO [address] [facility] [address] [place] [phone] Refill Request Social History Tobacco Use Types Packs/Day Years Used Date Smoking Tobacco: Some Days Cigars Smokeless Tobacco: Never Alcohol Use Standard Drinks/Week Comments No 0 [...] 06/05/2016 8:16 AM Marylou Rendon RN * Is person blind or have serious difficulty seeing? Answer Date of Assessment Author No 06/05/2016 8:16 AM ADWOAT [place] , Marylou Rosy, RN * Does person have serious difficulty [...] Under Investigation 04/08/2020 04/08/2020 04/08/2020 12:50 PM GAS SPECIALIST COVID-19 Confirmed 04/08/2020 04/08/2020 4:33 AM GAS SPECIALIST documented as of this encounter Care Teams Drafter Electrical Relationship Specialty Start Date End Date Unknown, Provider PCP - General 07/04/17 12/02/17 Juancho Medina MD [address] [place] [phone] PCP - General 12/03/17 08/24/24 Scottie Velez MD [address] [place] [phone] PCP - General Gastroenterology 08/25/24 Shea Chauhan RN Registered Nurse 09/03/17 documented as of this encounter
--- OUTSIDE RECORDS SUMMARY | 2024-09-22 09:14 | XMS_ITS | Clinical Summary ---
Author Organization [facility] Address [address] [place] [address] Care Team Providers Care Director Of Hospitality Name Role Phone Unavailable Primary Care Provider Unavailabl e Social History Tobacco Use Types Packs/Day Years Used Date Smoking Tobacco: Never Assessed Sex and Gender Information Value Date Recorded Sex Assigned at Not on file Legal Sex Male 1:55 PM HAND QUILTER Gender Identity Not on file Sexual Orientation Not on file Plan of Treatment Health Maintenance Due Date Last Done Comments Colorectal Cancer Screening Colonoscopy (10 Years) 1976 Annual Physical 10/11/1979 Hepatitis C 1994 DTaP, Tdap and Td Vaccines ( 1 - Tdap) 10/11/1995 Hepatitis B Vaccines (1 of 3 - 19+ 3-dose series) 10/11/1995 COVID-19 Vaccine ( - 2023-2 5 season) 2023 Meningococcal B Vaccine Aged Out No l onger eligible based on patient's age to complete this topic Meningococcal Vaccine Aged Out No jordin rio eligible based on patient's age to complete this topic Pneumococcal Vaccine: Pediat rics (0 to 5 Years) and At-Risk Patients (6 to 49 Years) Aged Out No longer eligible b ased on patient's age to complete this topic RSV Immunizations Under 20 Months Aged Out No longer eligible based on patient's age to complete this topic
--- OUTSIDE RECORDS SUMMARY | 2024-09-22 09:14 | XMS_ITS | Clinical Summary ---
Author Organization [facility] Address [address] [place] [address] Care Team Providers Care General Road Foreman Name Role Phone Unavailable Primary Care Provider Unavailabl e Allergies No known active allergies Medications No known medications Active Problems Problem Noted Date Diagnosed Date Abnormal gait 2018 Congenital reduction deformity of leg 2018 Equinus contracture of the ankle 2018 Flexion contracture of the knee 2018 Peripheral skeletomuscular gait disorder 019 Essential hypertension 2018 Neuropathy 2018 Gastroesophageal reflux disease 2018 Immunizations Immunization Administration Dates Next Due Influenza, Unspecified 2018(Deferr ed: Patient not in facility during flu season) Family History Medical History Relation Name Comments No Known Problems Brother Gout Father Cancer Mother No Known Problems Sister Relation Name Status Comments Brother Father Mother Sister Social History Tobacco Use Types Packs/Day Years Used Date Smoking Tobacco: Every Day Cigarettes Started: 2008 Smokeless Tobacco: Never Comments:onecigar a day Alcohol Use Standard Drinks/Week Comments Yes 12 (1 standard drink = 0.6 oz pu re alcohol) 12 cans week Sex and Gender Information Value Date Recorded Sex Assigned at Not on file Legal Sex Male 10:16 AM EDT Gender Identity Not on file Sexual Orientation Not on file Last Filed Vital Signs Vital Sign Reading Time Taken Comments Blood Pressure 118/73 10/12/2018 10:49 AM CDT Pulse 97 10/12/2018 10:49 AM CDT Temperature 37.4 C (99.3 F) 10/12/2018 10:49 AM CDT Respiratory Rate 20 10/12/2018 10:49 AM CDT Oxygen Saturation 98% 10/12/2018 10:49 AM CDT Inhaled Oxygen Concentration - - Weight 83.9 kg (185 lb) 2018 3:40 PM CDT Height 185.4 cm (6' 1) 2018 3:40 PM CDT Body Mass Index 24.41 2018 3:40 PM CDT Plan of Treatment Not on file Advance Directives * Full Resuscitation (Latest Code Status on File) Date Activated Date Inactivated Comments 2018 4:39 PM 10/12/2018 10:01 PM
--- OUTSIDE RECORDS SUMMARY | 2024-09-22 09:14 | XMS_ITS | Encounter Summary ---
Author Organization [facility] Address [address] [place] [address] Care Team Providers Care Chief Telephone Operator Name Role Phone Shea Chauhan RN Unavailable Unavailable Juancho Medina MD Primary Care Provider [phone] Scottie Velez MD Primary Care Provider [phone] Reason for Visit * Reason Onset Date Comments Question 10/26/2018 Encounter Details Date Type Department Care Team (Late st Contact Info) Description 10/26/2018 Telephone [facility] [address] [place] [address] Jenna Palmer Question Social History Tobacco Use Types Packs/Day Years [...] Chaparrita Boyce RN documented in this encounter Patient Instructions * Patient Instructions* Jenna Palmer - 10/26/2018 2:53 PM CDT Mr. Velez called requesting to speak with Kimmie, patient has some questions and would like a callback @ [phone]. documented in this encounter Plan of Treatment Not on file documented as of this encounter Visit Diagnoses Not on filedocumented in this encounter Additional Health Concerns Infection Onset Date Last Indicated Resolved Time COVID-19 Under Investigation 04/08/2020 04/08/2020 04/08/2020 12:50 PM MERCHANDISE SUPPORT ASSOCIATE COVID-19 Confirmed 04/08/2020 04/08/2020 4:33 AM MERCHANDISE SUPPORT ASSOCIATE documented as of this encounter Care Teams Chief Telephone Operator Relationship Specialty Start Date End Date Juancho Medina MD [address] [place] [phone] PCP - General 12/03/17 08/24/24 Scottie Velez MD [address] [place] [phone] PCP - General Gastroenterology 08/25/24 Shea Chauhan, RN Registered Nurse 09/03/17 documented as of this encounter
--- OUTSIDE RECORDS SUMMARY | 2024-09-22 09:14 | XMS_ITS | Clinical Summary ---
Author Organization [facility] Address [address] [facility] [place] [address] Care Team Providers Care Repairing Calibrator Name Role Phone Shea Chauhan RN Unavailable Unavailable Scottie Velez MD Primary Care Provider [phone] Source Comments [facility],non-owned Affiliates and Associated Physician Practices is amultiple site organization consisting of ambulatory clinics and hospital sitesin [place], [place], [place] and [place]. This disclosure is being madepursuant to the Care Everywhere program and may not contain all information available regarding this patient. Last updated 17.[facility] Allergies Active Allergy Reactions Criticality Noted Date Comments Cyclobenzaprine Other Medium 01/29/2022 Per patient with pain pills, causes pt to hallucinete Medications * This document contains information received from the source organization and may not represent a complete record from that organization. * Be aware that medications may not be up to date on this document. Alwaysverify current medications with the patient. aspirin-acetamin ophen-caffeine 250-250-65 MG tablet Take 1 (one) tablet to 2 (two) tablets by mouth every 4 hours as needed for Headache Active acetaminophen (Tylenol) 325 MG tablet Take 1 (one) tablet to 2 (two) tablets by mouth every 6 hours as needed 2 Active Banophen 25 MG capsule Take 1 (one) capsule by mouth every 6 hours as needed 3 Active HYDROcodone-acet aminophen ([place]) 5-325 MG tablet Take 2 (two) tablets by mouth every 4 hours as needed FOR PAIN 2 Active lisinopril (Prinivil; Zestril) 40 MG tablet Take 1 (one) tablet by mouth once daily 2 Active sildenafil (Viagra) 50 MG tablet Take 1 (one) tablet by mouth once daily as needed 2 Active traZODone (Desyrel) 50 MG tablet Take 1 (one) tablet by mouth as directed 3 Active ondansetron, disintegrating, (Zofran ODT) 4 MG tablet Take 1 (one) tablet by mouth every 6 hours as needed for Nausea/Vomiting Allow tablet to dissolve on the tongue 30 tablet 3 Active docusate sodium (Colace) 50 MG capsule Take 1 (one) capsule by mouth once daily 30 capsule 3 Active vitamin D, ergocalciferol, (Drisdol) 1.25 MG (18537 UT) capsule Take 1 (one) capsule by mouth every 7 days 30 capsule 2 3 Active baclofen (Lioresal) 10 MG tabletIndication s:Spasm of muscle,Cervical spondylosis TAKE 1 TABLET BY MOUTH EVERY NIGHT NEEDED FOR MUSCLE SPASMS. MAY CAUSE DROWSINESS 30 tablet 4 Active gabapentin (Neurontin) 600 MG tabletIndication s:Idiopathic peripheral neuropathy Take 1 (one) tablet by mouth 3 times daily 90 tablet 5 4 Active methylPREDNISolo ne (Medrol Dosepak) 4 MG tablet Take by mouth as directed Take as directed by mouth per package instructions. 21 tablet 4 Active Additional Information Patient not taking.Reported on 01/22/2024 Active Problems Problem Noted Date Diagnosed Date Right-sided low back pain with sciatica 12/05/19 24 Contracture of Achilles tendon 10/30/2022 1 Fall 03/10/2022 Overview (09/18/2022): pt recently fell at [facility], therapist did not place mats on ground for pt and pt fell. 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 08/24/2019 Pain of knee joint on movement 06/18/2019 Acquired cavovarus deformity of right foot 04/19 Pain 04/19/2019 Flexion contracture of knee 2018 Peripheral musculoskeletal gait disorder 019 Reduction defect of lower extremity 2018 Essential hypertension 2018 Abnormal gait 2018 Gastroesophageal reflux disease 2018 Neuropathy 2018 Acute post-operative pain 10/06/2018 Complex tear of medial meniscus of right knee Tear of medial meniscus of left knee 05/25/2018 Functional gait abnormality 05/25/2018 Tear of medial meniscus of knee 05/25/2018 Alcoholism 02/20/2018 Calcaneal spur 02/20/2018 Overview (05/25/2018): Overview: Description: Bilateral heel wedges, off the shelf Chronic low back pain 02/20/2018 Diabetes mellitus 02/20/2018 Hip pain 02/20/2018 Hyperuricemia 02/20/2018 Knee pain 02/20/2018 Abnormal liver function tests 02/20/2018 Pain in limb 02/20/2018 Pyrexia of unknown origin 02/20/2018 Seasonal allergies 02/20/2018 Secondary peripheral neuropathy 02/20/2018 Sinus tachycardia 02/20/2018 Foot pain 08/15/2017 Hammer toe of right foot 05/30/2017 Essential hypertension 01/03/2017 Gastroesophageal reflux disease 01/03/2017 Neuropathy 01/03/2017 Type 2 diabetes mellitus wit hout complication, without long-term current use of insulin 01/03/2017 Equinus contracture of right ankle 06/21/2016 Equinus contracture of ankle 06/21/2016 Mass of elbow region, bilateral 04/01/2016 Mass of neck 04/01/2016 Mass of subcutaneous tissue of back 04/01/2016 Calcaneal spur 10/05/2015 Overview (06/18/2019): Description: Bilateral heel wedges, off the shelf Description: Bilateral heel wedges, off the shelf Pain Gout Acquired cavovarus deformity of right foot Hip joint valgus deformity, right Lumbar radiculopathy Cervical spondylosis without myelopathy Neuropathy of right sciatic nerve Resolved Problems Problem Noted Date Diagnosed Date Resolved Date Fever 04/08/2020 04/22/2020 Encounters Date Type Department Care Team Description 09/21/2024 Orders Only [facility] - [facility] [address] [place] [id number] Gifty Huffman PA-C Right knee pain, unspecified chronicity 09/20/2024 Orders Only [facility] [address] [place] [address] Lacey Miles PA Bilateral ankle pain, unspecified chronicity 08/25/2024 Travel 08/13/2024 Travel from Last 3 Months Immunizations Immunization Administration Dates Next Due TDAP (7yrs+) 10/02/2016 Family History Medical History Relation Name Comments Gout Father Cancer - Breast Mother Relation Name Status Comments Father Mother Social History Tobacco Use Types Packs/Day Years Used Date Smoking Tobacco: Former Cigars Smokeless Tobacco: Former Tobacco Cessation:Counseling Given: Not Answered Alcohol Use Standard Drinks/Week Comments Not Currently [...] Sign Reading Time Taken Comments Blood Pressure 153/84 01/07/2023 9:46 AM CDT Pulse 90 01/07/2023 9:46 AM CDT Temperature 35.9 C (96.6 F) 10/16/2022 2:58 PM CDT Respiratory Rate 16 10/16/2022 2:58 PM CDT Oxygen Saturation 99% 01/07/2023 9:46 AM CDT Inhaled Oxygen Concentration 100% 08/15/2022 9 :17 AM CDT Weight 81.2 kg (179 lb) 01/22/2024 10:30 AM HEEL STIFFENER Height 185.4 cm (6' 1) 01/22/2024 10:30 AM HEEL STIFFENER Body Mass Index 23.62 01/22/2024 10:30 AM HEEL STIFFENER Plan of Treatment Health Maintenance Due Date Last Done Comments COLOGUARD (AGES 45-75) - COLON CA SCREENING 1976 COLON MONITORING 1976 COLONOSCOPY - COLON CA SCREENING 1976 CT COLONOGRAPHY - COLON CA SCREENING 1976 Colorectal Cancer Screening 1976 FIT - COLON CA SCREENING 1976 FLEX SIG - COLON CA SCREENING 1976 MEDICARE AWV 12 MONTHS 1976 Opioid Medication Agreement - Annual 1976 HIV SCREENING 10/11/1991 HEPATITIS B VACCINE (1 of 3 - 19+ 3-dose series) 10/11/1995 PNEUMOCOCCAL VACCINE (1 of 2 - PCV) 10/11/1995 DIABETES-STATIN 2016 DIABETES RETINOPATHY SCREENING 06/09/2017 DIABETES-FOOT EXAM WITH MONOFILAMENT 06/09/2017 DIABETES-HGB A1C 01/03/2022 07/04/2021, , 01/03/2017, Additional history exists DIABETES-SERUM CREATININE 10/19/20232022, 10/18/2022, 10/16/2022, Additional history exists COVID-19 VACCINE ( season) 2023 03/27/2021, 08/03/2020, 07/06/2020 DEPRESSION SCREENING 03/10/2024 12/05/2023, 09/25/19 22 DIABETES - URINE PROTEIN SCREENING 03/10/2024 INFLUENZA VACCINE (#1) 2024 DTAP/TDAP/TD VACCINES (2 - Td or Tdap) 10/02/2026 10/02/2016 ZOSTER VACCINE (1 of 2) 2026 HEPATITIS C SCREENING Completed 05/09/2021 HIB VACCINE Aged Out No longer eligi ble based on patient's age to complete this topic HPV VACCINE Aged Out No longer eligi ble based on patient's age to complete this topic MENINGOCOCCAL (Group B) VACCINE SHARED DECISION-MAKING Aged Out No longer eligible based on patient's age to complete this topic MENINGOCOCCAL GROUPS A/C/Y/W VACCINE Aged Out No longer eligible based on patient's age to complete this topic Goals Goal Patient Goal Type Associated Problems Recent Progress Patient-Stated? Author PAIN General No Edilson Han RN Note: Expected end date: ongoing Patient's pain/discomfort is manageable. Interventions: Mobility General Improving( 11:13 AM CDT) Akanksha Casiano RN Note: Expected end date: 03/09/21 The goal is to maintain or improve your mobility at the optimum level for you. Interventions: PT Medical Devices Implanted Type Area Ground[employer] Programs Director Device Identifier Shelf Expiration Date Model / Serial / Lot 3 Hole Head / 9 Hole Shaft Plate Implanted:Qty: 1 on 09/03/2017 by Chi Iverson DO at [facility] Right: Toe [employer] [id number] / / 2.0 Locking Screw Implanted:Qty: 1 on 09/03/2017 by Chi Iverson DO at [facility] Right: Toe [employer] [id number] / / 2.0 Mm Cortex Screw Implanted:Qty: 1 on 09/03/2017 by Chi Iverson DO at [facility] Right: Toe [employer] [id number] / / 2.0 Locking Screw Implanted:Qty: 1 on 09/03/2017 by Chi Iverson DO at [facility] Right: Toe [employer] [id number] / / Max Vpc Screw 4.0 Mm X 40 Mm Implanted:Qty: 1 on 09/03/2017 by Chi Iverson DO at [facility] Right: Toe [employer] [id number] / / 2.0 Locking Implanted:Qty: 1 on 09/03/2017 by Chi Iverson DO at [facility] Right: Toe [employer] [id number] / / Screw 3.5mm 42mm Tib Periart Prox Lck Ss Implanted:Qty: 1 on 10/06/2018 by Chi Iverson DO at [facility] Right: Ankle [employer] [id number] / / Screw 3.5mm 46mm Tib Periart Prox Lck M Implanted:Qty: 1 on 10/06/2018 by Chi Iverson DO at [facility] Right: Ankle [employer] [id number] / / Screw 3.5mm 48mm Tib Periart Prox Lck Ss Implanted:Qty: 1 on 10/06/2018 by Chi Iverson DO at [facility] Right: Ankle [employer] [id number] / / Screw 3.5mm 2.5mm 26mm Slf-Tap Sm Hex Implanted:Qty: 1 on 10/06/2018 by Chi Iverson DO at [facility] Right: Ankle [employer] [id number] / / Screw 3.5mm 2.5mm 30mm Augustine Slf-Tap Sm Implanted:Qty: 1 on 10/06/2018 by Chi Iverson DO at [facility] Right: Ankle [employer] [id number] / / Screw 3.5mm 2.5mm 40mm Slf-Tap Sm Hex Implanted:Qty: 1 on 10/06/2018 by Chi Iverson DO at [facility] Right: Ankle [employer] [id number] / / Plate 94mm 6 Hl Lck Lopro 2 Comp Slot Ss Implanted:Qty: 1 on 10/06/2018 by Chi Iverson DO at [facility] [employer] [id number] / / Screw 3.5mm 34mm Periart Lck Ss Implanted:Qty: 1 on 10/06/2018 by Chi Iverson DO at [facility] Right: Ankle [employer] [id number] / / Explanted Type Area Groundwater Programs Director Device Identifier Shelf Expiration Date Model / Serial / Lot 2.0 Locking Screw Explanted:Qty: 1 on 09/03/2017 by Chi Iverson DO at [facility] Right: Toe [employer] [id number] / / 2.0 Locking Screw Explanted:Qty: 1 on 09/03/2017 by Chi Iverson DO at [facility] Right: Toe [employer] [id number] / / Wire K 1.6mm 150mm 1 End Troc Pnt Ss Explanted:Qty: 1 on 10/06/2018 by Chi Iverson DO at [facility] [employer] [id number] / / Wire K 2mm 150mm 1 End Troc Pnt Ss Sm Explanted:Qty: 1 on 10/06/2018 by Chi Iverson DO at [facility] [employer] [id number] / / Procedures Procedure Name Priority Date/Time Associated Diagnosis Comments COMPREHENSIVE METABOLIC PANEL STAT 10/16/2022 2:05 PM CDT HEPATITIS C ANTIBODY Routine 05/09/2021 11:56 AM HEEL STIFFENER Arthralgia, unspecified joint Sacroiliitis Encounter for therapeutic drug monitoring High risk medication use HEMOGLOBIN A1C Routine 04/09/2020 2:32 AM HEEL STIFFENER from Last 3 Months or Most Recently Relevant to Health Maintenance Results * (ABNORMAL) COMPREHENSIVE METABOLIC PANEL (10/16/2022 2:05 PM CDT) BUN 10 7 - 26 mg/dL 10/16/2022 3:10 PM [facility] Creatinine 0.72 0.71 - 1.16 mg/dL 10/16/2022 3:10 PM T [facility] Sodium 140 136 - 145 mmol/L 10/16/2022 3:10 PM T [facility] Potassium 4.6(H) 3.5 - 4.5 mmol/L 10/16/2022 3:10 PM [facility] Chloride 106 98 - 107 mmol/L 10/16/2022 3:10 PM [facility] CO2 26 22 - 29 mmol/L 10/16/2022 3:10 PM [facility] Glucose 84 70 - 115 mg/dL 10/16/2022 3:10 PM [facility] Calcium 9.1 8.4 - 10.2 mg/dL 10/16/2022 3:[address] [facility] Protein Total 7.2 6.0 - 8.3 g/dL 10/16/2022 3:[address] [facility] Albumin 2.7(L) 3.4 - 5.0 g/dL 10/16/2022 3:[address] [facility] Bilirubin Total 0.5 0.2 - 1.2 mg/dL 10/16/2022 3:[address] [facility] Alkaline Phosphatase 108 40 - 150 U/L 10/16/2022 3:[address] [facility] ALT 11 5 - 55 U/L 10/16/2022 3:[address] [facility] AST 16 5 - 34 U/L 10/16/2022 3:[address] [facility] Anion Gap 13 8 - 18 10/16/2022 3:[address] [facility] BUN/Creatinine Ratio 14 7 - 23 10/16/2022 3:[address] [facility] Osmolality Calculated 288 270 - 300 mOsm/kg 10/16/2022 3:[address] [facility] Albumin/Globulin Ratio 0.6(L) 1.1 - 2.3 10/16/2022 3:[address] [facility] eGFR by CKD-EPI >90 >=90 mL/min/1.7 3 m2 10/16/2022 3:[address] [facility] Blood BLOOD SPECIMEN / Unknown Venipuncture / Unknown 10/16/2022 2:05 PM CDT 10/16/2022 2:45 PM [facility] us Codey Alcantara PA-C LAB - CHEMISTRY OR DERABLES Final Result [facility] [address] [place] [address], [facility] [phone] * HEPATITIS C ANTIBODY (05/09/2021 11:56 AM HEEL STIFFENER) Hepatitis C Antibody Non-react nereida Non-reac tive 05/09/2021 2:07 PM HEEL STIFFENER [facility] Comment:Hepatitis C Antibody screen indicates no serologic evidence of past or current infection with Hepatitis C Virus. Patients with unexplained liver disease who are immunocompromised or suspected of having acute Hepatitis C infection may benefit from Nucleic Acid Test (BRI) for Hepatitis C Viral RNA to confirm Hepatitis C status. Blood BLOOD SPECIMEN / Unknown Lab Venipuncture / Unknown 05/09/2021 11:56 AM HEEL STIFFENER 05/09/2021 1:28 PM HEEL STIFFENER Lakeisha Issa MD LAB - CHEMISTRY ORDERCarito KEEN Final Result [facility] [address] [place] [address], [facility] [phone] * HEMOGLOBIN A1C (04/09/2020 2:32 AM HEEL STIFFENER) Hemoglobin A1c 6.3 4.4 - 6.3 % 04/09/2020 9:21 AM [facility] Estimated Average Glucose 134 mg/dL 04/09/2020 9:21 AM [facility] Comment: HbA1c Interpretation: Treatment target values recommended by ADA and other clinical organizations should be used to evaluate metabolic control in patients. Treatment Target Values: Normal : < 5.7% Pre-diabetes: 5.7-6.4% Diabetes: Equal to or greater than 6.5% Reference: [place] Diabetes Association Standards of Care in Diabetes -2014 In patients 70 years and older consider HbA1c target range of 7.0-7.5% Reference: Diabetes Mellitus in Older People: Position Statement on behalf of the International Association of Gerontology and Geriatrics (IAGG), the Diabetes Working Democrat for Older People (EDWPOP), and the International Task Force of Experts in Diabetes. Johnny Arzate, et al. J [place] Medical Directors Association. 2012 Test results diagnostic of diabetes should be repeated for confirmation. The Sebia Capillary 2 assay for the measurement of HbA1c is a National Glycohemoglobin Standardization Program (NGSP)certified method. Blood BLOOD SPECIMEN / Unknown Venipuncture / Unknown 04/09/2020 2:32 AM HEEL STIFFENER 04/09/2020 2:53 AM HEEL STIFFENER Gordo Dennis DO LAB - CHEMISTRY ORDERABLES Fin al Result [facility] [address] [place] [address], [facility] [phone] from Last 3 Months or Most Recently Relevant to Health Maintenance Insurance MEDICAID [facility] Member Subscriber Plan / Payer (Ef fective 2017-Present) Name:Miki Velez Relation to Subscriber:Self Name:MIKI VELEZ Payer ID:Not on file Group ID:Not on file Type:Medicaid Address: [place] [id number] MEDICARE MEDICAID - [place] SELF PAY NO INSURANCE Member Subscriber Plan / Payer (Ef fective for All Dates) Name:Miki Velez Member ID:Not on file Relation to Subscriber:Not on file Name:MIKI VELEZ Subscriber ID:Not on file (Home) Address: [address] [place] [id number] Payer ID:Not on file Group ID:Not on file Type:Self Pay Address: [place], [place] MEDICARE Member Subscriber Plan / Payer (Ef fective 2024-Present) Name:Miki Velez Member ID:[id number] Relation to Subscriber:Self Name:Miki Velez Subscriber ID:[id number] Payer ID:Not on file Group ID:Not on file Type:Medicare Address: [place] [phone] MEDICARE Member Subscriber Plan / Payer (Ef fective 2024-Present) Name:Miki Velez Member ID:[id number] Relation to Subscriber:Self Name:Miki Velez Subscriber ID:[id number] Payer ID:Not on file Group ID:Not on file Type:Medicare Address: [place] [phone] Advance Directives * Full Code (Latest Code Status on File) Date Activated Date Inactivated Comments 04/08/2020 7:34 PM 04/10/2020 4:54 PM * Full Code Date Activated Date Inactivated Comments 2018 4:16 PM 10/12/2018 7:55 PM * Full Code Date Activated Date Inactivated Comments 10/06/2018 4:42 PM 10/09/2018 4:26 PM * Full Code Date Activated Date Inactivated Comments 10/06/2018 6:42 AM 10/06/2018 4:41 PM * Full Code Date Activated Date Inactivated Comments 10/05/2018 5:37 PM 10/05/2018 5:37 PM Care Teams Repairing Calibrator Relationship Specialty Start Date End Date Scottie Velez MD [address] [place] [address] PCP - General Gastroenterology 08/25/24 Shea Chauhan, RN Registered Nurse 09/03/17
--- OUTSIDE RECORDS SUMMARY | 2024-09-22 09:14 | XMS_ITS | Encounter Summary ---
Author Organization [facility] Address [address] [place] [address] Care Team Providers Care Shochet Name Role Phone Shea Chauhan RN Unavailable Unavailable Juancho Medina MD Primary Care Provider [phone] Scottie Velez MD Primary Care Provider [phone] Reason for Visit * Reason Onset Date Comments Med Question 10/16/2018 Encounter Details Date Type Department Care Team (Late st Contact Info) Description 10/16/2018 Telephone [facility] [address] [place] [address] Chi Iverson, DO [address] [facility] [address] [place] [phone] Med Question Social History Tobacco Use Types Packs/Day [...] of Assessment Author No 10/07/2018 4:30 PM ADWOAT Chaparrita Boyce RN * Is person blind or have serious difficulty seeing? Answer Date of Assessment Author No 10/07/2018 4:30 PM ADWOAT Chaparrita Boyce RN * Does person have serious difficulty walking/climbing stairs? Answer Date of Assessment Author No 10/07/2018 4:30 PM CDT Chaparrita Boyce RN * Does person have difficulty dressing/bathing? [...] encounter Miscellaneous Notes * Telephone Encounter - Amanuel Segal - 10/16/2018 12:22 PM CDT Patient requesting refill on pain med oxycodone documented in this encounter Plan of Treatment Not on file documented as of this encounter Visit Diagnoses Not on filedocumented in this encounter Additional Health Concerns Infection Onset Date Last Indicated Resolved Time COVID-19 Under Investigation 04/08/2020 04/08/2020 04/08/2020 12:50 PM SUPERVISOR POULTRY HATCHERY COVID-19 Confirmed 04/08/2020 04/08/2020 4:33 AM SUPER[employer]OR [employer] documented as of this encounter Care Teams Shochet Relationship Specialty Start Date End Date Juancho Medina MD [address] [place] [address] PCP - General 12/03/17 08/24/24 Scottie Velez MD [address] [place] [address] PCP - General Gastroenterology 08/25/24 Shea Chauhan RN Registered Nurse 09/03/17 documented as of this encounter
--- OUTSIDE RECORDS SUMMARY | 2024-09-22 09:14 | XMS_ITS | Encounter Summary ---
Author Organization [facility] Address [address] [place] [address] Care Team Providers Care Railroad Wheels And Axles Inspector Name Role Phone Shea Chauhan RN Unavailable Unavailable Scottie Velez MD Primary Care Provider [phone] Encounter Details Date Type Department Care Team (Late st Contact Info) Description 09/21/2024 Orders Only [facility] [address] [place] [phone] Gifty Huffman, PAKelliC [address] [place] [address] Right knee pain, unspecified chronicity Social History Tobacco Use [...] Priority Associated Diagnoses Orde r Schedule XR Knee Right 4Vw or More Imaging Routine Right knee pain, unspecified chronicity 1 Occurrences starting 09/21/2024 until 09/21/2025 documented as of this encounter Goals Goal [...] as of this encounter Visit Diagnoses Diagnosis Right knee pain, unspecified chronicity- Primary documented in this encounter Care Teams Railroad Wheels And Axles Inspector Relationship Specialty Start Date End Date Scottie Velez MD [address] [place] [address] PCP - General Gastroenterology 08/25/24 Shea Chauhan, RN Registered Nurse 09/03/17 documented as of this encounter
--- OUTSIDE RECORDS SUMMARY | 2024-09-22 09:14 | XMS_ITS | Encounter Summary ---
Author Organization [facility] Address [address] [facility] [place] [address] Care Team Providers Care Basting Machine Operator Name Role Phone Unknown, Provider Primary Care Provider UnavailShea Johnson RN Unavailable Unavailable Juancho Medina MD Primary Care Provider [phone] Scottie Velez MD Primary Care Provider [phone] Reason for Visit * Reason Onset Date Comments Medication Issue 11/14/2017 Encounter Details Date Type Department Care Team (Late st Contact Info) Description 11/14/2017 Telephone [facility] [address] [place] [address] Chi Iverson, DO [address] [facility] [address] [place] [phone] Medication Issue Social History Tobacco Use Types Packs/Day Years [...] * Telephone Encounter - Amanuel Segal - 11/14/2017 9:48 AM CDT Called in tylenol #3 to pharmacy today. 11/14/17 @ 9:45am documented in this encounter Plan of Treatment Not on file documented as of this encounter Visit Diagnoses Not on filedocumented in this encounter Additional Health Concerns Infection Onset Date Last Indicated Resolved Time COVID-19 Under Investigation 04/08/2020 04/08/2020 04/08/2020 12:50 PM HUMAN RESOURCE INTERN COVID-19 Confirmed 04/08/2020 04/08/2020 4:33 AM HUMAN RESOURCE INTERN documented as of this encounter Care Teams Basting Machine Operator Relationship Specialty Start Date End Date Unknown, Provider PCP - General 07/04/17 12/02/17 Juancho Medina MD [address] [place] [address] PCP - General 12/03/17 08/24/24 Scottie Velez MD [address] [place] [phone] PCP - General Gastroenterology 08/25/24 Shea Chauhan RN Registered Nurse 09/03/17 documented as of this encounter
--- OUTSIDE RECORDS SUMMARY | 2024-09-22 09:14 | XMS_ITS | Encounter Summary ---
Author Organization [facility] Address [address] [place] [address] Care Team Providers Care Dredge Pipeman Name Role Phone Shea Chauhan RN Unavailable Unavailable Juancho Medina MD Primary Care Provider [phone] Scottie Velez MD Primary Care Provider [phone] Encounter Details Date Type Department Care Team (Late st Contact Info) Description 02/18/2023 Telephone [facility] - [facility]rology [address] [place] [address], [place] [address] Yash Hanks MD [address] [place] [id number] Social History Tobacco Use Types Packs/Day Years [...] of Assessment Author Yes 04/08/2020 6:00 PM MACHINE TACK PULLER Meseret Kapoor RN * Does person have difficulty dressing/bathing? Answer Date of Assessment Author Yes 04/08/2020 6:00 PM MACHINE TACK PULLER Meseret Kapoor RN * Does person have difficulty doing errands alone? Answer Date of Assessment Author Yes 04/08/2020 6:00 PM MACHINE TACK PULLER Meseret Kapoor RN documented as of this encounter Mental Status * Does person have difficulty concentrating/remembering/making decisions? Answer Entry Date Author No 04/08/2020 6:00 PM Meseret Jules RN documented in this encounter Miscellaneous Notes * Telephone Encounter - Daniella Moctezuma - 02/18/2023 11:53 AM CST Patient called in requesting a Med refill. Drug type:gabapentin 600 mg Pharmacy:[facility] Patient call back number: [phone] . INE TACK PULLER documented in this encounter Plan of Treatment [...] on filedocumented in this encounter Care Teams Dredge Pipeman Relationship Specialty Start Date End Date Juancho Medina MD [address] [place] [address] PCP - General 12/03/17 08/24/24 Scottie Velez MD [address] [place] [id number] PCP - General Gastroenterology 08/25/24 Shea Chauhan, RN Registered Nurse 09/03/17 documented as of this encounter
--- OUTSIDE RECORDS SUMMARY | 2024-09-22 09:15 | XMS_ITS ---
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 He was in understanding of this. I will see him back on an as-needed basis. 03/31/[address] scan of the femurs of bilateral hips was brought in by the patient I reviewed it today. It demonstrates increased rotation of bilateral femurs based on the CT scan. PLAN OF TREATMENT Next Appt Details Follow Up: prn, Reason:
--- OUTSIDE RECORDS SUMMARY | 2024-09-22 09:15 | XMS_ITS | Encounter Summary ---
Author Organization [facility] Address [address] [place] [address] Care Team Providers Care Certified Low Vision Therapist Name Role Phone Shea Chauhan RN Unavailable Unavailable Juancho Medina MD Primary Care Provider [phone] Scottie Velez MD Primary Care Provider [phone] Reason for Visit * Reason Onset Date Comments Surgery Verification 10/15/2019 Encounter Details Date Type Department Care Team (Late st Contact Info) Description 10/15/2019 Telephone [facility] [address] [place] [address] Chi Iverson, DO [address] [facility] [address] [place] [address] Surgery Verification Social History Tobacco Use Types Packs/Day Years Used Date Smoking Tobacco: Former Cigars Smokeless Tobacco: Former Comments:cutting back Alcohol Use Standard Drinks/Week Comments [...] or suspected to have Coronavirus / COVID-19? Unable to assess 10/18/2019 7:42 PM CDT documented as of this encounter Functional Status * Is person deaf or have serious hearing difficulty? Answer Date of Assessment Author No 10/07/2018 4:30 PM CDT Chaparrita Boyce RN * Is person blind [...] encounter Miscellaneous Notes * Telephone Encounter - Betito Mata - 10/15/2019 12:36 PM CDT Pt is calling for verification of his surgery date and location PT CB#[phone] documented in this encounter Plan of Treatment Not on file documented as of this encounter Visit Diagnoses Not on filedocumented in this encounter Additional Health Concerns Infection Onset Date Last Indicated Resolved Time COVID-19 Under Investigation 04/08/2020 04/08/2020 04/08/2020 12:50 PM SALES INTERN COVID-19 Confirmed 04/08/2020 04/08/2020 4:33 AM SALES INTERN documented as of this encounter Care Teams Certified Low Vision Therapist Relationship Specialty Start Date End Date Juancho Medina MD [address] [place] [address] PCP - General 12/03/17 08/24/24 Scottie Velez MD [address] [place] [address] PCP - General Gastroenterology 08/25/24 Shea Chauhan, RN Registered Nurse 09/03/17 documented as of this encounter
--- OUTSIDE RECORDS SUMMARY | 2024-09-22 09:15 | XMS_ITS | Encounter Summary ---
Author Organization [facility] Address [address] [place] [address] Care Team Providers Care Press Leader Name Role Phone Shea Chauhan RN Unavailable Unavailable Juancho Medina MD Primary Care Provider [phone] Scottie Velez MD Primary Care Provider [phone] Reason for Visit * Reason Onset Date Comments Question 12/30/2019 Encounter Details Date Type Department Care Team (Late st Contact Info) Description 12/30/2019 Telephone [facility] [address] [place] [address] Chi Iverson, DO [address] [facility] [address] [place] [address] Question Social History Tobacco Use Types Packs/Day Years Used Date Smoking Tobacco: Former Cigars Smokeless Tobacco: Former Comments:cutting back Alcohol Use Standard Drinks/Week Comments Yes 6 (1 standard drink = 0.6 oz [...] * Telephone Encounter - Betito Mata - 12/30/2019 12:32 PM CDT Pt is needing office notes, surgical notes, xrays and MRI'S faxed to [facility] fax# [phone] Attn: Juan Alberto Linton Pt reuwsted to please reach out if he needs to do anything additional documented in this encounter Plan of Treatment Not on file documented as of this encounter Visit Diagnoses Not on filedocumented in this encounter Additional Health Concerns Infection Onset Date Last Indicated Resolved Time COVID-19 Under Investigation 04/08/2020 04/08/2020 04/08/2020 12:50 PM REWORKER COVID-19 Confirmed 04/08/2020 04/08/2020 4:33 AM REWORKER documented as of this encounter Care Teams Press Leader Relationship Specialty Start Date End Date Juancho Medina MD [address] [place] [address] PCP - General 12/03/17 08/24/24 Scottie Velez MD [address] [place] [address] PCP - General Gastroenterology 08/25/24 Shea Chauhan RN Registered Nurse 09/03/17 documented as of this encounter
--- OUTSIDE RECORDS SUMMARY | 2024-09-22 09:15 | XMS_ITS | Encounter Summary ---
Author Organization [facility] Address [address] [place] [address] Care Team Providers Care Cartography Supervisor Name Role Phone Shea Chauhan RN Unavailable Unavailable Juancho Medina MD Primary Care Provider [phone] Scottie Velez MD Primary Care Provider [phone] Encounter Details Date Type Department Care Team (Late st Contact Info) Description 01/10/2020 Telephone [facility] [address] [place] [address] Neela Herbert MD [address] [place] [address] Social History Tobacco Use Types Packs/Day Years [...] have Coronavirus / COVID-19? No / Unsure 01/05/2020 10:38 AM CDT documented as of this encounter Functional [...] Assessment Author No 10/07/2018 4:30 PM CDT Vik Boyce RN * Does person have difficulty dressing/bathing? Answer Date of Assessment Author No 10/07/2018 4:30 PM ADWOAT Chaparrita Boyce RN * Does person have difficulty doing errands alone? Answer Date of Assessment Author No 10/07/2018 4:30 PM Chaparrita Aguilar RN documented as of this encounter Mental Status * Does person have difficulty concentrating/remembering/making decisions? Answer Entry Date Author No 10/07/2018 4:30 PM Chaparrita Aguilar RN documented in this encounter Miscellaneous Notes * Telephone Encounter - Agnes Betzaida - 01/10/2020 2:31 PM CST Current Provider name: Dr. Neela Herbert Reason for call: Mr. Miki Velez wants to FU on his lab work he did 01/05/2020 following his 01/04/2020 appt with you. He wants to know the results. Please call. Patient Call Back number: [phone] O LAB TECHNICIAN * Telephone Encounter - Betzaida Alarcon - 01/10/2020 2:31 PM CST .scg O LAB TECHNICIAN documented in this encounter Plan of Treatment Not on file documented as of this encounter Visit Diagnoses Not on filedocumented in this encounter Additional Health Concerns Infection Onset Date Last Indicated Resolved Time COVID-19 Under Investigation 04/08/2020 04/08/2020 04/08/2020 12:50 PM PHOTO LAB TECHNICIAN COVID-19 Confirmed 04/08/2020 04/08/2020 4:33 AM PHOTO LAB TECHNICIAN documented as of this encounter Care Teams Cartography Supervisor Relationship Specialty Start Date End Date Juancho Medina MD [address] [place] [address] PCP - General 12/03/17 08/24/24 Scottie Velez MD [address] [place] [address] PCP - General Gastroenterology 08/25/24 Shea Chauhan RN Registered Nurse 09/03/17 documented as of this encounter
--- OUTSIDE RECORDS SUMMARY | 2024-09-22 09:15 | XMS_ITS | Data Portability ---
Author Organization [facility] Address [address] [place] [address] Care Team Providers Care Personal Care Aide Name Role Phone ROBERT DEE Orthopedic Surgeon Assessment Encounter Date Assessment Date Assessment LastModified by Organization Details LastModified Time 05/22/2023 05/22/2023 Patient to establish care with MD. salamanca Not available 05/22/2023 14:39:45 Plan of Treatment Reminders Order Date Submit Date Provider Last Modified By Organization Details Last Modified Time Details Appointments None recorded . Lab chlamydi a trachoma tis + neisseri a gonorrho eae + trichomo tracie vaginali s DNA panel, ELIZABETH+prob e, urine 2024 025 [facility], [address] [place] [address], [address], [place], [address], 5 06:45:59 HIV 1 + 2, meaningf ul use set 2024 025 [facility], [address] [place] [address], [address], [place], [address], 5 06:37:21 RPR (rapid plasma reagin), serum 2024 025 [facility], [address] [place] [address], [address], [place], [address], 5 06:37:20 CMP, serum or plasma 2024 025 [facility], [address], [address], [place], [address], 5 06:22:30 lipid panel, serum 2024 025 [facility], [address], [address], [place], [address], 5 06:22:29 CBC 2024 025 [facility], [address] [facility] [address], [address], [place], [address], 5 06:22:34 uric acid, serum or plasma 2024 025 [facility], [address] [facility] [address], [address], [place], [address], 5 06:22:31 testoste devi, free + total, serum 2024 025 [facility], [address] [facility] [address], [address], [place], [address], 5 06:22:28 HbA1c (hemoglo bin A1c), blood 2024 025 [facility], [address] [facility] [address], [address], [place], [address], 5 06:22:32 PSA, total, serum or plasma 2024 025 [facility], [address] [facility] [address], [address], [place], [address], 5 06:22:33 HbA1c (hemoglo bin A1c), blood 2023 024 [facility], [address] [facility] [address], [address], [place], [address], 4 16:24:51 basic metaboli c 1998 panel, serum or plasma 2023 024 [facility], [address], [address], [place], [address], 4 10:13:51 PSA, total, serum or plasma 2023 024 [facility], [address] [facility] [address], [address], [place], [address], 4 10:13:52 Referral neurolog ical surgeon referral 2023 024 RAMON Donohue MD, [address], [address], 5 11:24:24 orthoped ic surgeon referral 2023 024 RAMON Abrams MD, [address] [place] [address], [address], 4 10:45:49 physical therapis t referral 2023 024 [email or web address] [facility], [address] [place] [address], [address], 4 08:34:32 Procedures None recorded . Surgeries None recorded . Imaging None recorded . Medication Orders doxycycl ine hyclate 100 mg tablet 2024 025 [facility]234, [address] [place], [place], [id number], 5 11:03:36 lisinopr il 40 mg tablet 2024 025 [facility]474, [address] [place], [place], [id number], 5 12:46:51 amlodipi ne 2.5 mg tablet 2024 025 [facility] #18411, [address] [place], [place], [id number], 5 12:46:53 trazodon e 50 mg tablet 2024 025 [facility] #05270, [address] [place], [place], [id number], 5 12:46:51 meloxica m 15 mg tablet 2024 025 [facility] #38574, [address] [place], [place], [id number], 5 12:46:51 baclofen 10 mg tablet 2023 025 [facility] #26792, [address] [place], [place], [id number], 5 12:36:46 Viagra 100 mg tablet 2023 025 [facility] #13214, [address] [place], [place], [id number], 5 12:39:23 lisinopr il 40 mg tablet 2023 024 [facility] #31715, [address] [place], [place], [id number], 4 12:42:32 gabapent in 600 mg tablet 2023 024 [facility] #17246, [address] [place], [place], [id number], 4 12:42:33 meloxica m 15 mg tablet 2023 024 [facility]49442, [address] [place], [id number], 14:39:08 Patient TargetsNo targets recorded. Patient Instructions Encounter Date Encounter Id Patient Instructions Last Modified By Organization Details Last Modified Time 07/14/2023 [id number] ulcerative colitis: care instructions [email or web address] Not available 07/14/2023 12:44:06 learning about high blood pressure [email or web address] Not available 07/14/2023 12:42:21 A healthy lifestyle: care instructions [email or web address] Not available 07/14/2023 12:42:21 10/20/2023 [id number] learning about high blood sugar [email or web address] Not available 10/20/2023 13:01:50 learning about high blood pressure [email or web address] Not available 10/20/2023 12:55:53 05/06/2024 [id number] ulcerative colitis: care instructions [email or web address] Not available 05/06/2024 12:46:43 learning about high blood sugar [email or web address] Not available 05/06/2024 12:46:42 06/28/2024 [id number] painful urinatio n (dysuria): care instructions [email or web address] Not available 06/28/2024 11:03:27 learning about high blood sugar [email or web address] Not available 06/28/2024 11:03:27 learning about high blood pressure [email or web address] Not available 06/28/2024 11:03:27 Reason for Referral Physical Therapist Referral for Fall Referring Physician: Zia Denny, Family Medicine, Encounter Date: 05/22/2023 Neurological Surgeon Referra l for Chronic low back pain Chronic back pain Referring Physician: Scottie Velez, Internal Medicine, Encounter Date: 10/20/2023 Orthopedic Surgeon Referral for Chronic low back pain Referring Physician: Scottie Velez, Internal Medicine, Encounter Date: 10/20/2023 Results Created Date Observation Date Name Description Value Unit Range Abnormal Flag Note LastModifiedBy Organization Detail LastModifiedTime 10/20/19 24 10/21/2023 BASIC METAB OLIC PANEL (7) glucose 90 mg/dL 70-99 Not Available [facility] ([facility]) [address] [place], [address], 10/21/2023 10:13:51 10/20/19 24 10/21/2023 BASIC METAB OLIC PANEL (7) BUN 7 mg/dL 6-24 Not Available [facility] ([facility]) [address] [place], [address], 10/21/2023 10:13:51 10/20/19 24 10/21/2023 BASIC METAB OLIC PANEL (7) creatinine 0.67 mg/dL 0.76-1 .27 below low normal Not Available [facility] ([facility]) [address] [place], [address], 10/21/2023 10:13:51 10/20/19 24 10/21/2023 BASIC METAB OLIC PANEL (7) eGFR 116 mL/mi n/1.7 3 >59 Not Available [facility] ([facility]) [address] [place], [address], 10/21/2023 10:13:51 10/20/19 24 10/21/2023 BASIC METAB OLIC PANEL (7) BUN/creatini ne ratio 10 9-20 Not Available [facility] ([facility]) [address] [place], [address], 10/21/2023 10:13:51 10/20/19 24 10/21/2023 BASIC METAB OLIC PANEL (7) sodium 142 mmol/ L 134-14 4 Not Available [facility] ([facility]) [address] [place], [address], 10/21/2023 10:13:51 10/20/19 24 10/21/2023 BASIC METAB OLIC PANEL (7) potassium 4.4 mmol/ L 3.5-5. 2 Not Available [facility] ([facility]) [address] [place], [address], 10/21/2023 10:13:51 10/20/19 24 10/21/2023 BASIC METAB OLIC PANEL (7) chloride 101 mmol/ L 96-106 Not Available [facility] ([facility]) [address] [facility], [place], [address], 10/21/2023 10:13:51 10/20/19 24 10/21/2023 BASIC METAB OLIC PANEL (7) carbon dioxide, total 26 mmol/ L 20-29 Not Available [facility] ([facility]) [address], [place], [address], 10/21/2023 10:13:51 10/20/19 24 10/21/2023 PROST ATE-S PECIF IC AG prostate specific Ag 1.4 NG/mL 0.0-4. 0 Delmis ECLIA metho dolog y. Accor ding to the Ameri can Urolo gical Assoc iatio n, Serum PSA shoul d decre ase and remai n at undet ectab le level s after radic al prost atect yaniv. The AUA defin es bioch emica l recur rence as an initi al PSA value 0.2 ng/mL or great er follo wed by a subse quent confi rmato ry PSA value 0.2 ng/mL or great er. Value s obtai eliane with diffe rent assay metho ds or kits canno t be used inter allen eably . Resul ts canno t be inter prete d as absol kiley evide nce of the prese nce or absen ce of princess bobby disea se. Not Available [facility] ([facility]) [address] [facility], [place], [address], 10/21/2023 10:13:52 05/06/19 25 05/07/2024 TESTO STERO NE,FR EE AND TOTAL testosterone 617 NG/dL 264-91 6 Adult male refer ence inter valentina is based on a popul ation of healt hy nonob winifred males (BMI <30) betwe en 19 and 39 years old. Travi son, et.abby . JCEM 2017, 102;1 161-1 173. PMID: 10623 103. Not Available [facility] ([facility]) [address] [place], [address], 05/13/2024 06:22:28 05/06/19 25 05/12/2024 TESTO STERO NE,FR EE AND TOTAL free testosterone (direct) 10.5 pg/mL 6.8-21 .5 Not Available [facility] ([facility]) [address] [place], [address], 05/13/2024 06:22:28 05/06/19 25 05/07/2024 LIPID PANEL cholesterol, total 254 mg/dL 100-19 9 above high normal Not Available [facility] ([facility]) [address] [place], [address], 05/13/2024 06:22:29 05/06/19 25 05/07/2024 LIPID PANEL triglyceride s 42 mg/dL 0-149 Not Available [facility] ([facility]) [address] [place], [address], 05/13/2024 06:22:29 05/06/19 25 05/07/2024 LIPID PANEL HDL cholesterol 104 mg/dL >39 Not Available [facility] ([facility]) [address] [place], [address], 05/13/2024 06:22:29 05/06/19 25 05/07/2024 LIPID PANEL VLDL cholesterol callie 6 mg/dL 5-40 Not Available [facility] ([facility]) [address] [place], [address], 05/13/2024 06:22:29 05/06/19 25 05/07/2024 LIPID PANEL LDL chol calc ([facility]) 144 mg/dL 0-99 above high normal Not Available [facility] ([facility]) [address] [place], [address], 05/13/2024 06:22:29 05/06/19 25 05/07/2024 COMP. METAB OLIC PANEL (14) glucose 97 mg/dL 70-99 Not Available [facility] ([facility]) [address] [place], [address], 05/13/2024 06:22:30 05/06/19 25 05/07/2024 COMP. METAB OLIC PANEL (14) BUN 9 mg/dL 6-24 Not Available [facility] ([facility]) [address] [place], [address], 05/13/2024 06:22:30 05/06/19 25 05/07/2024 COMP. METAB OLIC PANEL (14) creatinine 0.73 mg/dL 0.76-1 .27 below low normal Not Available [facility] ([facility]) [address] [place], [address], 05/13/2024 06:22:30 05/06/19 25 05/07/2024 COMP. METAB OLIC PANEL (14) eGFR 113 mL/mi n/1.7 3 >59 Not Available [facility] ([facility]) [address] [place], [address], 05/13/2024 06:22:30 05/06/19 25 05/07/2024 COMP. METAB OLIC PANEL (14) BUN/creatini ne ratio 12 9-20 Not Available [facility] ([facility]) [address] [place], [address], 05/13/2024 06:22:30 05/06/19 25 05/07/2024 COMP. METAB OLIC PANEL (14) sodium 139 mmol/ L 134-14 4 Not Available [facility] ([facility]) [address] [place], [address], 05/13/2024 06:22:30 05/06/19 25 05/07/2024 COMP. METAB OLIC PANEL (14) potassium 4.7 mmol/ L 3.5-5. 2 Not Available [facility] ([facility]) [address] [place], [address], 05/13/2024 06:22:30 05/06/19 25 05/07/2024 COMP. METAB OLIC PANEL (14) chloride 99 mmol/ L 96-106 Not Available [facility] ([facility]) [address] [place], [address], 05/13/2024 06:22:30 05/06/19 25 05/07/2024 COMP. METAB OLIC PANEL (14) carbon dioxide, total 24 mmol/ L 20-29 Not Available [facility] ([facility]) [address] [place], [address], 05/13/2024 06:22:30 05/06/19 25 05/07/2024 COMP. METAB OLIC PANEL (14) calcium 10.2 mg/dL 8.7-10 .2 Not Available [facility] ([facility]) [address] [place], [address], 05/13/2024 06:22:30 05/06/19 25 05/07/2024 COMP. METAB OLIC PANEL (14) protein, total 8.6 g/dL 6.0-8. 5 above high normal Not Available [facility] ([facility]) [address] [place], [address], 05/13/2024 06:22:30 05/06/19 25 05/07/2024 COMP. METAB OLIC PANEL (14) albumin 4.4 g/dL 4.1-5. 1 Not Available [facility] ([facility]) [address] [place], [address], 05/13/2024 06:22:30 05/06/19 25 05/07/2024 COMP. METAB OLIC PANEL (14) globulin, total 4.2 g/dL 1.5-4. 5 Not Available [facility] ([facility]) [address] [place], [address], 05/13/2024 06:22:30 05/06/19 25 05/07/2024 COMP. METAB OLIC PANEL (14) bilirubin, total 0.9 mg/dL 0.0-1. 2 Not Available [facility] ([facility]) [address] [place], [address], 05/13/2024 06:22:30 05/06/19 25 05/07/2024 COMP. METAB OLIC PANEL (14) alkaline phosphatase 843 IU/L 44-121 above high normal Not Available [facility] ([facility]) [address] [place], [address], 05/13/2024 06:22:30 05/06/19 25 05/07/2024 COMP. METAB OLIC PANEL (14) AST (SGOT) 55 IU/L 0-40 above high normal Not Available [facility] ([facility]) [address] [place], [address], 05/13/2024 06:22:30 05/06/19 25 05/07/2024 COMP. METAB OLIC PANEL (14) ALT (SGPT) 50 IU/L 0-44 above high normal Not Available [facility] ([facility]) [address] [place], [address], 05/13/2024 06:22:30 05/06/19 25 05/07/2024 URIC ACID uric acid 7.1 mg/dL 3.8-8. 4 Lebrona simon shrestha t for gout patie nts: <6.0 Not Available [facility] ([facility]) [address] [place], [address], 05/13/2024 06:22:31 05/06/19 25 05/07/2024 HEMOG LOBIN A1C hemoglobin A1C 5.7 % 4.8-5. 6 above high normal Predi abete s: 5.7 - 6.4 Diabe olu: >6.4 Glyce ingris contr ol for adult s with diabe olu: <7.0 Not Available [facility] ([facility]) [address] [facility], [place], [address], 05/13/2024 06:22:32 05/06/1905/07/2024 PROST ATE-S PECIF IC AG prostate specific Ag 1.0 NG/mL 0.0-4. 0 Delmis ECLIA metho dolog y. Accor ding to the Ameri can Urolo gical Assoc iatio n, Serum PSA shoul d decre ase and remai n at undet ectab le level s after radic al prost atect yaniv. The AUA defin es bioch emica l recur rence as an initi al PSA value 0.2 ng/mL or great er follo wed by a subse quent confi rmato ry PSA value 0.2 ng/mL or great er. Value s obtai eliane with diffe rent assay metho ds or kits canno t be used inter allen eably . Resul ts canno t be inter prete d as absol kiley evide nce of the prese nce or absen ce of princess almeida se. Not Available [facility] ([facility]) [address] [place], [address], 05/13/2024 06:22:33 05/06/1905/07/2024 CBC, PLATE LET, NO DIFFE RENTI AL WBC 9.7 x10e3 /uL 3.4-10 .8 Not Available [facility] ([facility]) [address] [place], [address], 05/13/2024 06:22:34 05/06/1905/07/2024 CBC, PLATE LET, NO DIFFE RENTI AL RBC 5.47 x10e6 /uL 4.14-5 .80 Not Available [facility] ([facility]) [address] [place], [address], 05/13/2024 06:22:34 05/06/1905/07/2024 CBC, PLATE LET, NO DIFFE RENTI AL hemoglobin 14.1 g/dL 13.0-1 7.7 Not Available [facility] ([facility]) [address] [facility], [place], [address], 05/13/2024 06:22:34 05/06/1905/07/2024 CBC, PLATE LET, NO DIFFE RENTI AL hematocrit 45.1 % 37.5-5 1.0 Not Available [facility] ([facility]) [address] [place], [address], 05/13/2024 06:22:34 05/06/1905/07/2024 CBC, PLATE LET, NO DIFFE RENTI AL MCV 82 fL 79-97 Not Available [facility] ([facility]) [address] [place], [address], 05/13/2024 06:22:34 05/06/1905/07/2024 CBC, PLATE LET, NO DIFFE RENTI AL MCH 25.8 pg 26.6-3 3.0 below low normal Not Available [facility] ([facility]) [address] [place], [address], 05/13/2024 06:22:34 05/06/1905/07/2024 CBC, PLATE LET, NO DIFFE RENTI AL MCHC 31.3 g/dL 31.5-3 5.7 below low normal Not Available [facility] ([facility]) [address] [place], [address], 05/13/2024 06:22:34 05/06/1905/07/2024 CBC, PLATE LET, NO DIFFE RENTI AL RDW 16.4 % 11.6-1 5.4 above high normal Not Available [facility] ([facility]) [address] [place], [address], 05/13/2024 06:22:34 05/06/19 25 05/07/2024 CBC, PLATE LET, NO DIFFE RENTI AL platelets 453 x10e3 /uL 150-45 0 above high normal Not Available [facility] ([facility]) [address] [facility], [place], [address], 05/13/2024 06:22:34 06/29/19 25 06/29/2024 RPR, RFX QN RPR/C ONFIR M TP RPR NON REACTI VE nonrea ctive Not Available [facility] ([facility]) [address] [place], [address], 06/29/2024 06:37:20 06/29/1906/29/2024 HIV AB/P2 4 AG WITH REFLE X HIV Ab/P24 Ag screen NON REACTI VE nonrea ctive HIV-1 /HIV- 2 antib odies and HIV-1 p24 antig en were NOT detec brian. There is no labor atory evide nce of HIV infec tion. HIV Negat nereida Not Available [facility] ([facility]) [address] [facility], [place], [address], 06/29/2024 06:37:21 06/29/19 25 07/01/2024 CT/GC /TV ELIZABETH+M YCOPL ASMAS URINE mycoplasma genitalium ELIZABETH NEGATI VE negati ve Not Available [facility] ([facility]) [address] [place], [address], 07/02/2024 06:45:59 06/29/19 25 07/01/2024 CT/GC /TV ELIZABETH+M YCOPL ASMAS URINE mycoplasma hominis ELIZABETH NEGATI VE negati ve Not Available [facility] ([facility]) [address] [place], [address], 07/02/2024 06:45:59 06/29/19 25 07/01/2024 CT/GC /TV ELIZABETH+M YCOPL ASMAS URINE ureaplasma spp ELIZABETH NEGATI VE negati ve Not Available [facility] ([facility]) [address] [facility], [place], [address], 07/02/2024 06:45:59 06/29/19 25 07/01/2024 CT/GC /TV ELIZABETH+M YCOPL ASMAS URINE trich vag by ELIZABETH NEGATI VE negati ve Not Available [facility] ([facility]) [address] [facility], [place], [address], 07/02/2024 06:45:59 06/29/19 25 07/01/2024 CT/GC /TV ELIZABETH+M YCOPL ASMAS URINE chlamydia trachomatis, ELIZABETH NEGATI VE negati ve Not Available [facility] ([facility]) [address] [facility], [place], [address], 07/02/2024 06:45:59 06/29/19 25 07/01/2024 CT/GC /TV ELIZABETH+M YCOPL ASMAS URINE neisseria gonorrhoeae, ELIZABETH NEGATI VE negati ve Not Available [facility] ([facility]) [address] [place], [address], 07/02/2024 06:45:59 05/22/19 24 05/22/2023 XR, hip + pelvi s, bilat eral, 3 or 4 view No observ ation record ed. [email or web address] [place], [address], 05/22/2023 14:40:12 05/22/19 24 05/22/2023 CT, head, w/o contr ast No observ ation record ed. [email or web address] [facility] [address] [place], [address], 05/22/2023 14:40:14 05/22/19 24 05/22/2023 CT, cervi callie spine , w/o contr ast No observ ation record ed. [email or web address] [facility] [address] [place], [address], 05/22/2023 14:40:13 01/09/20 24 12/31/2023 XR, femur No observ ation record ed. [address] [facility] [address], [place], [address], 01/09/2024 17:49:51 05/27/19 25 05/26/2024 US, abdom en No observ ation record ed. [address] [facility] [address], [place], [address], 06/01/2024 23:02:24 09/21/1909/20/2024 XR, foot No observ ation record ed. [email or web address] [facility] [address] [place], [address], 09/21/2024 10:02:58 Result Notes None recorded. 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 234499649 Active 2023 ZIA DENNY PA-C Attn: Accounting ,[address] [place], [address] , [facility] - [facility] 4 14:32:27 Ex-smoker 9007974 Active 2023 Scottie Velez MD Attn: Accounting ,[address] [facility], [place], [address] , [facility] - [facility] 4 12:32:49 Ulcerativ e colitis 87384773 Active 2023 Scottie Velez MD Attn: Accounting ,[address] [facility], [place], [address] , [place] [facility] 4 12:43:02 Erectile dysfuncti on 634975259 Active 2023 Scottie Velez MD Attn: Accounting ,[address] [facility], [place], [address] , [place] [facility] 4 12:49:06 Hyperglyc emia 65713560 Active 2023 Scottie Velez MD Attn: Accounting ,[address] [facility], [place], [address] , [place] [facility] 4 13:00:17 Screening for malignant neoplasm of prostate Active 2023 Scottie Velez MD Attn: Accounting ,[address] [facility], [place], [address] , [place] [facility] 4 13:00:41 Foot pain 73428635 Active Nava Ponce LPN null, [place] - [facility] 3 15:36:31 Pain of bilateral hip joints 75409900858 020861 Active 2023 Scottie Velez MD Attn: Accounting ,[address] [facility], [place], [address] , [place] [facility] 4 16:46:29 Abnormal gait 09710254 Active 2024 Scottie Velez MD Attn: Accounting ,[address] [facility], [place], [address] , [place] [facility] 5 04:18:42 Weakness of right lower limb Active 2024 Scottie Velez MD Attn: Accounting ,[address] [facility], [place], [address] , [place] [facility] 5 17:26:29 Dysuria 74388816 Active 2024 Scottie Velez MD Attn: Accounting ,[address] [facility], [place], [address] , [place] [facility] 5 10:57:06 Infection screening Active 2024 Scottie Velez MD Attn: Accounting ,[address] [facility], [place], [place], [address] [place] [address] , [place] - [facility] 5 11:00:27 History of nutrition al deficienc y 27417889963 104 Active 2024 Scottie Velez MD Attn: Accounting ,[address] [facility], [place], [place], [address] [place] [address] , [facility] - [facility] 5 02:47:14 Does mobilize using walker 165286198 Active 2024 Scottie Velez MD Attn: Accounting ,[address] [facility], [place], [place], [address] [place] [address] , [facility] - [facility] 5 10:34:27 [place] m 7947603 Completed 07/14/2023 Scottie Velez MD Attn: Accounting ,[address] [place], [place], [address] [place] [address] , [facility] - [facility] 4 12:33:07 Essential hypertens ion 64844361 Active Katelyn Rosales LPN null, [place] - [facility] 0 09:59:42 Secondary periphera l neuropath y 542395 Active Not Available [facility] 18:21:15 Knee joint painful on movement 849094118 Active Not Available [facility] 18:21:15 Pain of hip region 06143779 Active Not Available [facility] 18:21:15 Hyperuric emia 33443486 Active Not Available [facility] 18:21:15 Seasonal allergy 180521300 Active Not Available [facility] 18:21:15 Mass of neck 749013959 Completed 07/14/2023 Scottie Velez MD Attn: Accounting ,[address] [place], [place], [address] [place] [address] , [place] - [facility] 4 12:34:31 Chronic low back pain 918592892 Active Not Available [facility] 18:21:15 Calcaneal spur 11783315 Active Not Available [facility] 06/24/202 1 18:21:15 Pyrexia of unknown origin 8540946 Completed 07/14/2023 Scottie Velez MD Attn: Accounting ,[address] , [place], [address] , [place] [facility] 4 12:34:42 Sinus tachycard ia 48782941 Completed 07/14/2023 Scottie Velez MD Attn: Accounting ,[address] [facility], [place], [address] , [place] - [facility] 4 12:35:03 Problem Notes None recorded. Procedures Surgical History Date Name Laterality Status Provider Name and Address Organization Details Recorded Time 4 colonoscopy completed Ken Alegria MD Attn: Accounting,[address] , [place], [address], [place] [facility] 02/19/2024 17:24:07 4 Nail Debridement completed KAREN KRAUS DPM [address], [place], [address], [place] [facility] 04/29/2023 14:35:48 3 Nail Debridement completed KAREN KRAUS DPM [address], [place], [address], [place] [facility] 08/14/2022 12:28:49 3 Nail Debridement completed KAREN KRAUS DPM [address], [place], [address], [place] [facility] 05/02/2022 13:39:11 2 Nail Debridement completed KAREN KRAUS DPM [address], [place], [address], [place] [facility] 02/21/2022 14:47:52 2 Injection completed KAREN KRAUS DPM [address], [place], [address], [place] [facility] 02/21/2022 15:00:55 2 Nail Debridement completed KAREN KRAUS DPM [address], [place], [address], [place] [facility] 09/19/2021 15:04:10 2 Injection completed KAREN KRAUS, STEFANIM [address], [place], [address], [place] - [facility] 09/19/2021 15:04:36 2 Unlisted px femur/knee completed Colleen [place] - [facility] 06/22/2021 11:29:44 2 Nail Debridement completed KAREN KRAUS DPM [address], [place], [address], [place] [facility] 04/03/2021 18:43:18 2 Injection completed KAREN KRAUS, DPSameer [address], [place], [address], [place] [facility] 04/03/2021 18:41:46 1 Injection completed KAREN KRAUS, DPM [address], [place], [address], [place] [facility] 12/26/2020 12:42:13 1 Injection completed KAREN KRAUS DPM [address], [place], [address], [place] [facility] 12/21/2020 15:46:57 1 Injection completed KAREN KRAUS DPM [address], [place], [address], [place] [facility] 11/27/2020 14:27:21 1 Nail Debridement completed KAREN KRAUS DPM [address], [place], [address], [place] [facility] 11/10/2020 18:09:42 1 Injection completed KAREN KRAUS DPSameer [address], [place], [address], [place] [facility] 11/10/2020 18:12:29 0 Nail Debridement completed KAREN KRAUS DPM [address], [place], [address], [place] [facility] 01/12/2020 12:28:51 0 Ulcer Debridement completed KAREN KRAUS DPM [address], [place], [address], [place] [facility] 11/01/2019 10:55:07 0 Nail Debridement completed KAREN KRAUS STEFANISameer [address], [place], [address], [facility] - [facility] 11/01/2019 10:57:49 0 Ulcer Debridement completed KAREN MONTANOYSTEFANISameer [address], [place], [address], [facility] - [facility] 09/24/2019 15:08:01 0 Ulcer Debridement completed KAREN MONTANOYSTEFANISameer [address], [place], [address], [facility] - [facility] 09/20/2019 16:17:24 0 Injection completed STEFANI JACKMANSameer [address], [place], [address], [facility] - [facility] 09/20/2019 16:11:36 0 Nail Debridement completed STEFANI JACKMANSameer [address], [place], [address], [facility] - [facility] 08/13/2019 12:38:28 9 Ankle arthroscopy/tacos ta completed Aretha Shay [place] - [facility] 10/23/2018 10:31:11 Imaging Results None recorded. Procedure Notes None recorded. Medical Equipment None Reported. Allergies No known drug allergies Medications Name Sig Start Date Stop Date Status Note LastModified by Organization Details LastModified Time one touch mini test strips use once daily 04/25 completed Not Available Not Available Not Available Prescript ion - Clarifica tion 04/25 completed Not Available Not Available Not Available Prescript ion - New active Not Available Not Available No t Available glucomete r 04/25 completed and supplies Not Available Not Available Not Available cyclobenz aprine 10 mg tablet TAKE 1 TABLET BY MOUTH THREE TIMES DAILY NEEDED FOR MUSCLE SPASMS 05/23 completed Not Available Not Available Not Available amoxicill in 500 mg capsule Take 1 capsule every 12 hours by oral route after meals for 7 days. 04/15 completed Not Available Not Available Not Available methocarb juliocesar 500 mg tablet Take 2 tablets 3 times a day by oral route for 30 days. 08/28 completed Causes gasy stomach. Not Available Not Available Not Available acetamino phen 325 mg tablet 05/23 completed Not Available Not Available Not Available prednison e 10 mg tablet 05/06 completed Not Available Not Available Not Available gabapenti n 600 mg tablet TAKE 1 TABLET BY MOUTH THREE TIMES DAILY active Not Available Not Available No t Available atorvasta tin 20 mg tablet 04/25 completed Not Available Not Available Not Available naproxen 375 mg tablet 08/28 completed Not Available Not Available Not Available sulfasala zine 500 mg tablet 05/06 completed Not Available Not Available Not Available tizanidin e 2 mg tablet TK 1 T PO Q 8 H PRF MSP 03/13 completed Not Available Not Available Not Available trazodone 50 mg tablet TAKE 1 TABLET BY MOUTH AT BEDTIME NEEDED 2024 active Not Available Not Available Not Avai lable sildenafi l 50 mg tablet TAKE 1 TABLET BY MOUTH EVERY DAY FOR 10 DAYS NEEDED 09/20 completed Not Available Not Available Not Available lisinopri l 20 mg-hydroc hlorothia zide 12.5 mg tablet Take 1 tablet every day by oral route as directed for 30 days. 05/23 completed Not Available Not Available Not Available azithromy madyson 250 mg tablet 08/28 completed Not Available Not Available Not Available ibuprofen 800 mg tablet TAKE 1 TABLET BY MOUTH TWICE DAILY AFTER MEALS 10/19 completed Not Available Not Available Not Available tizanidin e 4 mg tablet 05/06 completed Not Available Not Available Not Available hydrocodo ne 5 mg-acetam inophen 325 mg tablet TAKE 2 TABLETS BY MOUTH EVERY 4 HOURS NEEDED FOR PAIN 03/12 completed Not Available Not Available Not Available meloxicam 15 mg tablet TAKE 1 TABLET BY MOUTH ONCE DAILY WITH A MEAL active Not Available Not Available No t Available lisinopri l 20 mg tablet TAKE 1 TABLET BY MOUTH EVERY DAY active Not Available Not Available No t Available ondansetr on HCl 4 mg tablet 10/19 completed Not Available Not Available Not Available prednison e 20 mg tablet 08/28 completed Not Available Not Available Not Available dexametha sone 6 mg tablet 06/23 completed Not Available Not Available Not Available lidocaine 4 % topical cream Apply 1 applicat ion 4 times a day by topical route as directed for 30 days. 10/19 completed Not Available Not Available Not Available thiamine HCl (vitamin B1) 100 mg tablet Take 1 tablet every day by oral route for 90 days. 2014 active Not Available Not Available Not Avai lable oxiconazo le 1 % topical cream Apply 2 grams up to 2 times daily to affected area(s). active Not Available Not Available No t Available Remicade 100 mg intraveno us solution 05/06 completed Not Available Not Available Not Available amlodipin e 2.5 mg tablet TAKE 1 TABLET BY MOUTH EVERY DAY active Not Available Not Available No t Available metronida zole 500 mg tablet TAKE 1 TABLET BY MOUTH EVERY 8 HOURS AFTER MEALS FOR 5 DAYS 10/19 completed Not Available Not Available Not Available acetamino phen 300 mg-codein e 30 mg tablet TAKE 1 TABLET BY MOUTH TWICE DAILY NEEDED 06/22 completed Not Available Not Available Not Available amlodipin e 5 mg tablet Take 1 tablet every day by oral route as directed for 30 days. 08/28 completed Not Available Not Available Not Available allopurin ol 100 mg tablet TAKE 2 TABLETS BY MOUTH EVERY DAY 09/01 completed Not Available Not Available Not Available ciproflox acin 500 mg tablet TAKE 1 TABLET BY MOUTH EVERY 12 HOURS AFTER MEALS FOR 5 DAYS 02/18 completed Not Available Not Available Not Available sulfameth oxazole 800 mg-trimet hoprim 160 mg tablet 05/23 completed Not Available Not Available Not Available hydrocodo ne 10 mg-acetam inophen 325 mg tablet TAKE 1 TABLET BY MOUTH EVERY 6 HOURS NEEDED FOR PAIN 04/12 completed Not Available Not Available Not Available tramadol 50 mg tablet 10/19 completed Not Available Not Available Not Available quetiapin e 100 mg tablet Take 1 tablet as needed by oral route at bedtime for 30 days. 05/23 completed Not Available Not Available Not Available amitripty line 50 mg tablet Take 1 tablet every day by oral route at bedtime for 30 days. 08/28 completed Not Available Not Available Not Available sildenafi l 100 mg tablet TAKE 1 TABLET BY MOUTH EVERY DAY NEEDED 05/06 completed Not Available Not Available Not Available baclofen 20 mg tablet TAKE 1 TABLET BY MOUTH THREE TIMES DAILY DIRECTED 05/23 completed Not Available Not Available Not Available ketorolac 10 mg tablet TAKE 1 TABLET BY MOUTH EVERY 6 HOURS FOR 5 DAYS NEEDED 08/12 completed Not Available Not Available Not Available Kenalog 40 mg/mL suspensio n for injection Take 0.25 mL by injectio n route. 09/20 completed Not Available Not Available Not Available meloxicam 7.5 mg tablet 05/06 completed Not Available Not Available Not Available oxycodone -acetamin ophen 5 mg-325 mg tablet TAKE 1 TABLET BY MOUTH EVERY 4 HOURS NEEDED FOR PAIN 05/06 completed Not Available Not Available Not Available famotidin e 20 mg tablet Take 1 tablet twice a day by oral route as directed for 30 days. 06/23 completed Not Available Not Available Not Available amitripty line 25 mg tablet Take 1 tablet 3 times a day by oral route for 30 days. 04/15 completed Not Available Not Available Not Available methotrex ate sodium 2.5 mg tablet TAKE 4 TABLETS BY MOUTH EVERY 7 DAYS 05/23 completed Not Available Not Available Not Available oxycodone -acetamin ophen 10 mg-325 mg tablet 10/23 completed Not Available Not Available Not Available tamsulosi n 0.4 mg capsule Take 1 capsule every day by oral route at bedtime for 30 days. 03/13 completed Not Available Not Available Not Available gabapenti n 800 mg tablet TAKE 1 TABLET BY MOUTH THREE TIMES DAILY 05/06 completed Not Available Not Available Not Available trazodone 100 mg tablet Take 1 tablet as needed by oral route at bedtime for 30 days. 04/25 completed Not Available Not Available Not Available OneTouch Ultra Test strips USE DIRECTED TO TEST TWO TIMES DAILY 04/25 completed Not Available Not Available Not Available baclofen 10 mg tablet Take 1 tablet twice a day by oral route in the evening. 05/06 completed Not Available Not Available Not Available amlodipin e 10 mg tablet Take 1 tablet every day by oral route as directed for 30 days. 04/25 completed Not Available Not Available Not Available hydrocodo ne 7.5 mg-acetam inophen 325 mg tablet TAKE 1 TABLET BY MOUTH EVERY 8 HOURS NEEDED FOR PAIN 05/23 completed Not Available Not Available Not Available cephalexi n 500 mg capsule TAKE 1 CAPSULE BY MOUTH TWICE DAILY FOR 7 DAYS active Not Available Not Available No t Available pantopraz ole 40 mg tablet,de layed release 04/25 completed Not Available Not Available Not Available metformin 1,000 mg tablet TAKE 1 TABLET BY MOUTH EVERY DAY DIRECTED 04/25 completed Not Available Not Available Not Available nystatin 100,000 unit/gram topical cream APPLY TOPICALL Y TO FEET TWICE DAILY active Not Available Not Available No t Available docusate sodium 100 mg capsule TAKE 1 CAPSULE BY MOUTH ONCE DAILY 10/19 completed Not Available Not Available Not Available omeprazol e 20 mg capsule,d elayed release TAKE 1 CAPSULE BY MOUTH EVERY DAY BEFORE A MEAL 05/23 completed Not Available Not Available Not Available Banophen 25 mg capsule TAKE ONE CAPSULE BY MOUTH EVERY 6 HOURS NEEDED 08/14 completed Not Available Not Available Not Available aspirin 81 mg chewable tablet active Not Available Not Available Not Available diclofena c sodium 75 mg tablet,de layed release 10/23 completed Not Available Not Available Not Available folic acid 1 mg tablet TAKE 1 TABLET BY MOUTH EVERY DAY 10/19 completed Not Available Not Available Not Available allopurin ol 300 mg tablet Take 1 tablet every day by oral route after meals for 30 days. 05/23 completed Not Available Not Available Not Available ergocalci ferol (vitamin D2) 1,250 mcg (50,000 unit) capsule TAKE 1 CAPSULE BY MOUTH EVERY 7 DAYS active Not Available Not Available No t Available dexametha sone sodium phosphate 4 mg/mL injection solution Inject 1 mL by intramus cular route. 06/22 completed Not Available Not Available Not Available budesonid e DR - ER 3 mg capsule,d elayed,ex tended release TAKE 1 CAPSULE BY MOUTH DAILY 05/06 completed Not Available Not Available Not Available ibuprofen 600 mg tablet 10/23 completed Not Available Not Available Not Available oxycodone -acetamin ophen 7.5 mg-325 mg tablet TK 1 T PO Q 6 H PRN P 04/12 completed Not Available Not Available Not Available levofloxa madyson 750 mg tablet 04/12 completed Not Available Not Available Not Available methylpre dnisolone 4 mg tablets in a dose pack FOLLOW PACKAGE DIRECTIO NS active Not Available Not Available No t Available albuterol sulfate HFA 90 mcg/actua tion aerosol inhaler INHALE 2 PUFFS BY MOUTH EVERY 4 HOURS 06/22 completed Not Available Not Available Not Available SSD 1 % topical cream 04/12 completed Not Available Not Available Not Available hydroxyzi ne HCl 10 mg tablet 08/12 completed Not Available Not Available Not Available lisinopri l 40 mg tablet TAKE 1 TABLET BY MOUTH EVERY DAY active Not Available Not Available No t Available ondansetr on 4 mg disintegr ating tablet DISSOLVE 1 TABLET ON THE TONGUE EVERY 6 HOURS NEEDED FOR NAUSEA AND VOMITING 10/19 completed Not Available Not Available Not Available doxycycli ne hyclate 100 mg tablet TAKE 1 TABLET BY MOUTH TWICE DAILY FOR 7 DAYS active Not Available Not Available No t Available loratadin e 10 mg tablet 08/28 completed Not Available Not Available Not Available naproxen 500 mg tablet TAKE 1 TABLET BY MOUTH TWICE DAILY WITH FOOD 05/21 completed Not Available Not Available Not Available nortripty line 50 mg capsule Take 1 capsule twice a day by oral route as directed for 30 days. 05/06 completed Not Available Not Available Not Available diazepam 5 mg tablet 03/13 completed Not Available Not Available Not Available metoclopr amide 10 mg tablet TAKE 1 TABLET BY MOUTH TWICE DAILY NEEDED 07/31 completed Not Available Not Available Not Available amoxicill in 875 mg-potass ium clavulana te 125 mg tablet TAKE 1 TABLET BY MOUTH EVERY 12 HOURS FOR 10 DAYS 02/18 completed Not Available Not Available Not Available oxycodone 5 mg tablet TAKE 1 TABLET BY MOUTH EVERY 6 HOURS NEEDED FOR PAIN 07/31 completed Not Available Not Available Not Available Calcium-5 00 500 mg (as calcium carbonate 1,250 mg) tablet Take 2 tablets every day by oral route as directed for 30 days. 06/23 completed Not Available Not Available Not Available Test Strips test daily 04/25 completed Not Available Not Available Not Available cyclobenz aprine 5 mg tablet TAKE 1 TABLET(5 MG) BY MOUTH THREE TIMES DAILY FOR UP TO 7 DAYS NEEDED FOR MUSCLE SPASMS 10/19 completed Not Available Not Available Not Available Cialis 20 mg tablet Take 1 tablet every day by oral route as needed for 10 days. 10/23 completed Not Available Not Available Not Available metoprolo l tartrate 25 mg tablet Take 1 tablet twice a day by oral route as directed for 30 days. 05/23 completed Not Available Not Available Not Available duloxetin e 30 mg capsule,d elayed release TAKE ONE CAPSULE BY MOUTH EVERY DAY active Not Available Not Available No t Available lactulose 10 gram/15 mL oral solution Take 15 mL every day by oral route as directed for 30 days. 10/23 completed Not Available Not Available Not Available tizanidin e 4 mg capsule Take 1 capsule 3 times a day by oral route as directed for 30 days. 11/27 completed Not Available Not Available Not Available pregabali n 100 mg capsule TAKE 1 CAPSULE BY MOUTH THREE TIMES DAILY DIRECTED 03/12 completed Not Available Not Available Not Available Lyrica 50 mg capsule Take 1 capsule 3 times a day by oral route for 28 days. 08/28 completed SAMPLES, 4 BLISTER CARDS LYRICA 5O MG , LOT. [id number]. EXP. [id number] WITH PACKAGE INSERTS FOR PATIENT' S INSTRUCT IONS. Not Available Not Available Not Available Lyrica 75 mg capsule Take 1 capsule twice a day by oral route for 30 days. 2014 active Not Available Not Available Not Avai lable Oysco 500/D 500 mg-5 mcg (200 unit) tablet TAKE 2 TABLETS BY MOUTH EVERY DAY 06/23 completed Not Available Not Available Not Available mesalamin e 1.2 gram tablet,de layed release TAKE 3 TABLETS BY MOUTH DAILY active Not Available Not Available No t Available Amrix 30 mg capsule,e xtended release TAKE 1 CAPSULE BY MOUTH EVERY DAY NEEDED 04/25 completed Not Available Not Available Not Available diclofena c 1 % topical gel APPLY 2 GRAMS TO THE AFFECTED AREA(S) BY TOPICAL ROUTE 4 TIMES PER DAY 10/19 completed Not Available Not Available Not Available metformin ER 1,000 mg 24 hr tablet,ex tended release (gastric reten.) 06/24 completed Not Available Not Available Not Available sodium,po tassium,m ag sulfates 17.5 gram-3.13 gram-1.6 gram oral soln 05/06 completed Not Available Not Available Not Available Iva Allergy 60 mg tablet Take 1 tablet twice a day by oral route for 30 days. 08/28 completed Not Available Not Available Not Available lidocaine 5 % topical ointment Apply 2 grams up to 4 times daily to affected area(s). active Not Available Not Available No t Available lidocaine HCl 4 % topical cream Apply 1 applicat ion 4 times a day by topical route as directed for 30 days. 10/19 completed Not Available Not Available Not Available Movantik 12.5 mg tablet TAKE 1 TABLET BY MOUTH EVERY DAY NEEDED 10/23 completed Not Available Not Available Not Available glucosami ne 467 mg-chondr oitin [facility] [place] no.6 438 mg-sallie es 0.7 mg capsule Take 1 capsule 3 times a day by oral route as directed for 30 days. 06/23 completed Not Available Not Available Not Available Linzess 72 mcg capsule Take 1 capsule every day by oral route as directed for 30 days. 05/23 completed Not Available Not Available Not Available magnesium oxide 500 mg-vit D3 3,000 unit-turm bruce root 150 mg tablet Take 2 tablets every day by oral route as directed for 60 days. 09/01 completed Not Available Not Available Not Available Humira(CF ) Pen 40 mg/0.4 mL subcutane ous kit 10/19 completed Not Available Not Available Not Available B12 Active 1,000 mcg chewable tablet Take 1 tablet every day by oral route as directed for 30 days. 06/23 completed Not Available Not Available Not Available Vitals Date Recorded Body height Body mass index (BMI) Body weight Heart rate Oxygen saturation Oxygen saturation in Arterial blood by Pulse oximetry Systolic And Diastolic Provider Name and Address Organization Details Last Updated DateTime 5 182.88 cm 24.1 kg/m2 19194.4 4 g 77 /min 98 % 98 % 169/92 mm[Hg] Bridgett De Luna MA [facility] 5 11:53:07 Date Recorded Body height Body mass index (BMI) Body weight Oxygen saturation Oxygen saturation in Arterial blood by Pulse oximetry Heart rate Systolic And Diastolic Provider Name and Address Organization Details Last Updated DateTime 4 182.88 cm 23.7 kg/m2 39348.6 6 g 97 % 97 % 105 /min 140/90 mm[Hg] Aretha Shay MA [facility] 4 14:10:05 Date Recorded Body height Body mass index (BMI) Body weight Heart rate Oxygen saturation Oxygen saturation in Arterial blood by Pulse oximetry Systolic And Diastolic Provider Name and Address Organization Details Last Updated DateTime 5 182.88 cm 25.8 kg/m2 30900.5 5 g 120 /min 97 % 97 % 160/80 mm[Hg] Rashida Phelps MA [facility] 5 10:41:50 Date Recorded Body height Body mass index (BMI) Body weight Oxygen saturation Oxygen saturation in Arterial blood by Pulse oximetry Heart rate Systolic And Diastolic Provider Name and Address Organization Details Last Updated DateTime 4 182.88 cm 21.7 kg/m2 88111.7 8 g 98 % 98 % 96 /min 158/88 mm[Hg] Yaima Nunez MA [facility] 4 12:01:40 Date Recorded Body height Body mass index (BMI) Body weight Oxygen saturation Oxygen saturation in Arterial blood by Pulse oximetry Heart rate Systolic And Diastolic Provider Name and Address Organization Details Last Updated DateTime 4 182.88 cm 25.2 kg/m2 44673.1 8 g 98 % 98 % 87 /min 162/96 mm[Hg] Yaima Nunez MA [facility] 4 12:23:59 Social History Question Answer Notes LastModified by Organizat ion Details LastModified Time Tobacco Smoking Status Former Smoker [employer], [facility] 08/13/2022 14:39:57 Do You Have An Advance Directive? No [email or web address] Information not available 02/03/2015 What Is Your Level Of Caffeine Consumption? Occasional Information not available 06/22/2021 How Much Tobacco Do You Chew? None [email or web address] Information not available 02/03/2015 In The 14 Days Before Symptom Onset, Have You Had Close Contact With A Laboratory-confir med COVID-19 While That Case Was Ill? No Information not available 09/19/2021 In The 14 Days Before Symptom Onset, Have You Had Close Contact With A Person Who Is Under Investigation For COVID-19 While That Person Was Ill? No Information not available 09/19/2021 Have You Been To An Area Known To Be High Risk For COVID-19? No Information not available 09/19/2021 What Type Of Diet Are You Following? REGULAR [email or web address] Information not available 02/03/2015 Which Illicit Or Recreational Drugs Have You Used? Pt Denies [email or web address] Information not available 02/03/2015 Education 12 Information no t available 03/13/2020 Hard Of Hearing Or Deaf In One Or Both Ears? No [email or web address] Information not available 02/03/2015 Legally Blind In One Or Both Eyes? No [email or web address] Information no t available 02/03/2015 Live Alone Or With Others? Alone [email or web address] Information not available 02/03/2015 Do You Have A Medical Power Of Mechanical Pencils As[employer]er? No Information not available 09/19/2021 What Was The Date Of Your Most Recent Tobacco Screening? 05/06/2024 Information not available 05/06/2024 How Many Children Do You Have? 3 [email or web address] Information not available 02/03/2015 What Is Your Current Pack Years? [email or web address] Information not available 06/22/2021 Do You Use Your Seat Belt Or Car Seat Routinely? Yes Information not available 06/22/2021 Seat Belts Used Routinely Yes [email or web address] Information not available 02/03/2015 Smoke Alarm In Home Yes [email or web address] Information not available 02/03/2015 Do You Have Smoke And Carbon Monoxide Detectors In Your Home? No Information not available 06/22/2021 Are You Passively Exposed To Smoke? No Information no t available 03/13/2020 How Much Tobacco Do You Smoke? No [email or web address] Information not available 08/13/2022 General Stress Level Medium Information not available 03/13/2020 Do You Use Sunscreen Routinely? No [email or web address] Information not available 02/03/2015 Has Tobacco Cessation Counseling Been Provided? No Information not available 06/22/2021 On What Date Was Tobacco Cessation Counseling Provided? 05/06/2024 Information not available 05/06/2024 How Many Years Have You Smoked Tobacco? 12 [email or web address] Information not available 05/19/2014 Sex: Male Functional Status Question Answer Note LastModified by Organizat ion Details LastModified Time Do you use any illicit or recreational drugs? No Information not available 06/22/2021 Do you or have you ever used any other forms of tobacco or nicotine? No Information not available 06/22/2021 What is your level of alcohol consumption? None [email or web address] Information not available 02/03/2015 Do you or have you ever used smokeless tobacco? Never used [email or web address] tobacco Information not available 03/13/2020 Are you currently employed? No Information not available 03/13/2020 Are you able to care for yourself? Yes [email or web address] Information not available 02/03/2015 Do you or have you ever used e-cigarettes or vape? Never used electronic cigarettes Information not available 03/13/2020 What is your exercise level? None Information not available 03/13/2020 Mental Status None recorded. Family History Relationship Description Onset Age of this Age Resolved Age Notes LastModified by Organization Details LastModified Time Father No current problems or disability [email or web address] Not available 11:27:16 Mother No current problems or disability [email or web address] Not available 11:27:16 Medical History Condition Response Coronary Artery Disease N Other N High Blood Pressure Y Atrial Fibrillation N Kidney or Bladder Problems N Thyroid Problems N GI Problems N Depression N COPD N Blood Clots N Skin Problems N Anemia N Heart Attack ([place]) N Anxiety Disorder N Diabetes Y Muscle, Joint, or Bone Problems N Seizures/Epilepsy N Acid Reflux (GERD) N Cancer N Stroke N Asthma N Allergies Y High Cholesterol N Hepatitis N Liver Disease N Headaches N Osteoporosis N Heart Failure N Immunizations Vaccine Type Date Status Note Provider Nam e and Address Organization Details Recorded Time COVID-19, mRNA, LNP-S, PF, 100 mcg/0.5mL dose or 50 mcg/0.25mL dose 07/06/2020 completed Not Available [facility] 3 05:16:29 COVID-19, mRNA, LNP-S, PF, 100 mcg/0.5mL dose or 50 mcg/0.25mL dose 08/03/2020 completed Not Available [facility] 3 05:16:29 COVID-19, mRNA, LNP-S, PF, 30 mcg/0.3 mL dose 03/27/2021 completed Not Available [facility] 3 05:16:29 Past Encounters Encounter ID Performer Location Encounter Start Date Encounter Closed Date Diagnosis/Indication Diagnosis SNOMED-CT Code Diagnosis ICD10 Code Diagnosis Note [id number] Juancho Medina MD [facility] (Adult Med) [address] [place] [address] 10595-356 0 05/19/2014 16:03:47 05/20/2014 11:43:43 Pain in limb 78193485 Diabetes mellitus 43916551 Liver func tion tests outside reference range 873136307 [id number] MD Wilfrid Santillan (Adult Med) [address] [place] [address] 47301-474 0 07/29/2014 11:55:40 07/29/2014 16:39:26 Alcoholism 1754209 Pain in limb 87385832 Essential hypertension 86418898 Liver func tion tests outside reference range 555069876 [id number] MD Wilfrid Santillan (Adult Med) [address] [place] [address] 58202-790 0 10/27/2014 15:43:30 10/28/2014 10:22:09 Pain in limb 11517580 Diabetes mellitus 46624508 Essential hypertension 35344990 Liver func tion tests outside reference range 628931421 Foot pain 91214003 Secondary peripheral neuropathy 030073 [id number] MD Wilfrid Santillan (Adult Med) [address] [place] [address] 35093-726 0 12/29/2014 11:59:48 12/29/2014 15:54:43 Diabetes mellitus 19433430 E13.40 Essential hypertension 04643622 I10 Secondary peripheral neuropathy 573589 G63 Foot pain 38757442 M79.6 71 M79.672 Pain in limb 66682059 M7 9.609 History of alcoholism 16 5770676 F10.21 [id number] Juancho Medina MD [facility] (Adult Med) [address] [place] [address] 18235-395 0 02/03/2015 11:01:42 02/06/2015 12:39:56 Diabetes mellitus 72515535 E13.40 Essential hypertension 22119235 I10 Pain in limb 89124187 M7 9.609 Secondary peripheral neuropathy 876604 G63 History of alcoholism 16 9587919 F10.21 Knee joint painful on movement 461427801 M25.569 Pain of hip region 45225 002 M25.551 [id number] Juancho Medina MD [facility] (Adult Med) [address] [place] [address] 69230-861 0 03/31/2015 10:10:34 03/31/2015 12:42:19 Diabetes mellitus 88213930 E13.40 Foot pain 60292690 M79.6 73 Pain of hip region 25138 002 M25.551 Pain in limb 38608593 M7 9.609 Knee joint painful on movement 506757156 M25.569 Essential hypertension 38012246 I10 Secondary peripheral neuropathy 141414 G63 Hyperuricemia 35045493 E 79.0 [id number] Juancho Medina MD [facility] (Adult Med) [address] [place] [address] 21238-161 0 06/28/2015 15:58:56 06/28/2015 18:10:33 Diabetes mellitus 34589627 E13.40 Foot pain 70517526 M79.6 73 History of alcoholism 16 2800720 F10.21 Secondary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 Chronic low back pain 27 8777266 M54.5 Will obtain the report of his lumbar spine open MRI from [facility] and consider the referral of health it specialist . 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 Pain in limb 25852721 M7 9.609 constant pain, on meloxicam, He stopped ibuprofen, on excedrin OTC. not on meloxicam neither. Secondary peripheral neuropathy 612242 G63 On narcotic pain pill from his surgeon. Wanting hospital bed, pending the form to be filled out from [employer]. contact company Isaura at [phone] as patient requested. [id number] KAREN KRAUS DPM [facility] [address] [place] [address] 12/21/2020 13:42:47 01/12/2021 12:21:44 Traumatic arthropathy-ankle 276546718 M12.571 Foot-drop 0708191 M21.37 1 Foot pain 65540404 M79.6 71 M79.672 Pain of ri ght ankle joint 6935493671 3477731 M25.571 Localized, primary osteoarthritis of the ankle and/or foot 733149015 M19.071 Pain of le ft ankle joint 5196374525 8689697 M25.572 Plantar fa sciitis of left foot 5164637194 7385101 M72.2 Lesion of left plantar nerve 7583722638 47130 G57.62 Lesion of right plantar nerve 7285166274 08208 G57.61 Onychomycosis 411163786 B35.1 [id number] KAREN KRAUS DPM [facility] [address] [place] [address] 12/26/2020 11:59:04 01/05/2021 13:58:06 Traumatic arthropathy-ankle 761841531 M12.571 Foot-drop 3082722 M21.37 1 Foot pain 52259971 M79.6 71 M79.672 Pain of ri ght ankle joint 8679020532 7366161 M25.571 Localized, primary osteoarthritis of the ankle and/or foot 393894249 M19.071 Pain of le ft ankle joint 6007674398 1882702 M25.572 Plantar fa sciitis of left foot 5403319206 9922680 M72.2 Lesion of left plantar nerve 7694391184 04052 G57.62 Lesion of right plantar nerve 0510193119 88379 G57.61 Onychomycosis 961141288 B35.1 Left Achil les tendinitis 7814252226 34284 M76.62 [id number] Juancho Medina MD [facility] (Adult Med) [address] [place] [address] 58666-703 0 01/10/2021 11:54:32 01/10/2021 13:04:50 Insomnia 834097381 G47.00 Discussed with patient. Injury of right knee 491 3162507 6312692 S89.91XD Right knee sore , he had see a inbound ingredient logistics specialist , but he is not satisfied. Pain of le ft ankle joint 1769256526 0133957 M25.572 Wants building inspector referral. Hypertensive disorder 38 302386 I10 118/74 mm Hg 01-10-2021 . wants only lisinopril 40 mg, not HCTZ. [id number] Juancho Medina MD [facility] (Adult Med) [address] [place] [address] 15598-040 0 02/07/2021 11:56:59 02/08/2021 12:31:24 Chronic pain syndrome 567624128 G89.4 Pain all over.Numer ous operations on his legs, has been evaluated by various inbound ingredient logistics specialist s on both sides of [place], [place] and [place]. Pain in limb 10563448 M7 9.609 constant pain, on meloxicam, He stopped ibuprofen, on excedrin OTC. not on meloxicam neither. At this moment, can not find a burn specialist at [facility] his plastic surgeon suggested he said. Partial th ickness burn of lower limb 90014356 T24.A Discussed with patient , will try topical cream, he agreed to try. [id number] KAREN KRAUS DPM [facility] [address] [place] [address] 04/03/2021 13:08:16 04/05/2021 08:43:15 Traumatic arthropathy-ankle 578179393 M12.571 Foot-drop 1112687 M21.37 1 Foot pain 05321972 M79.6 71 M79.672 Pain of ri ght ankle joint 4621703809 7796793 M25.571 Localized, primary osteoarthritis of the ankle and/or foot 089948247 M19.071 Pain of le ft ankle joint 7508444071 9651583 M25.572 Plantar fa sciitis of left foot 0906074825 0002289 M72.2 Lesion of left plantar nerve 2268136643 93177 G57.62 Onychomycosis 906571822 B35.1 Left Achil les tendinitis 7488863190 56042 M76.62 Bilateral atherosclerosis of arteries of lower limbs 7338013113 2351652 I70.676 [id number] MD [facility] Santillan (Adult Med) [address] [place] [address] 29946-684 0 04/06/2021 14:49:09 04/09/2021 07:57:04 Unsteady when standing 298466665 R26.81 Use cane. Walker, wants second opinion. for his right foot. He will have walker, current is broken , also will have hospital bed, he said that his health insyurance will take car eof . [id number] MD Wilfrid Santillan (Adult Med) [address] [place] [address] 53426-662 0 05/23/2021 12:33:38 05/24/2021 10:36:22 Acquired deformity of right lower leg 9317509578 64693 M21.961 Under the care of his inbound ingredient logistics specialist at [facility]. Erectile dysfunction 860 862783 F52.21 Still on viagra 100 mg as ordered. [id number] MD Wilfrid Santillan (Adult Med) [address] [place] [address] 78323-261 0 06/22/2021 11:01:32 06/25/2021 10:37:06 Weakness of right leg 2026326772 7558624 G83.11 He will have more operations on his right leg and thigh at [facility] ,also will have months of post-opera tive rehabilita tion , will need hospital bed to elevate his legs and back on support the range of the motion for the up coming surgery Jul 11 2021. [id number] MD [facility] [address] [place] [address] 66185-753 0 07/31/2021 13:31:27 08/01/2021 10:53:30 Pain in right lower limb 424876744 M79.604 Has been operated on , but can not walk. Will refer to different orthopedic group, agreeable with patient. Had operation again at [facility] 11-21-2019 , been D/C from hospital and tereso arnold at home., patient wants following vitamin to be prescribed . as suggested by his Physical therapist. today 05-09-2020 .Wants refill magnesium. Wants to be referred to [facility] orthopedic , 09-04-2020 . right leg still weak, can not stretch out, just had 2 operations , right hip and right femur, on wheelchair , muscle atrophy, stitches still on the right thigh, wound healed well. Hypertensive disorder 38 676009 I10 118/74 mm Hg 01-10-2021 . wants only lisinopril 40 mg, not HCTZ. Blood pressure is 130/80 mm Hg today 07-31-2021 ., Heart regular, no murmur, . Lungs clear to auscultati on. Abdomen soft, no mass. No edema of feet /legs. On wheelchair . [id number] Juancho Medina MD [facility] (Adult Med) [address] [place] [address] 19768-290 0 09/07/2021 14:19:03 09/11/2021 09:48:46 Right leg peripheral neuropathy 5295603633 55742 G62.9 Wants to try some med and lidocaine for the pain on the right eg and thigh. Femoral neuropathy 01801 000 G57.21 Wants neurology referral. [id number] KAREN KRAUS DPM [facility] [address] [place] [address] 62249-873 2 09/19/2021 14:14:12 09/20/2021 08:43:26 Traumatic arthropathy-ankle 341587004 M12.571 Foot-drop 5455044 M21.37 1 Foot pain 56020079 M79.6 71 M79.672 Pain of ri ght ankle joint 1575552981 5500625 M25.571 Localized, primary osteoarthritis of the ankle and/or foot 967429355 M19.071 Pain of le ft ankle joint 0932044922 1454628 M25.572 Plantar fa sciitis of left foot 7060205410 3412625 M72.2 Lesion of left plantar nerve 6951091695 13884 G57.62 Onychomycosis 553333131 B35.1 Left Achil les tendinitis 9604987792 73053 M76.62 Bilateral atherosclerosis of arteries of lower limbs 4865821865 3885374 I70.290 [id number] KAREN KRAUS DPM [facility] [address] [place] [address] 02/21/2022 14:19:23 02/22/2022 14:38:13 Traumatic arthropathy-ankle 534080229 M12.571 Foot-drop 6965469 M21.37 1 Foot pain 76007586 M79.6 71 M79.672 Pain of ri ght ankle joint 0817041337 1575990 M25.571 Localized, primary osteoarthritis of the ankle and/or foot 475065220 M19.071 Pain of le ft ankle joint 3005299288 2022369 M25.572 Plantar fa sciitis of left foot 3317377989 3095547 M72.2 Lesion of left plantar nerve 6623166208 91203 G57.62 Onychomycosis 618407400 B35.1 Left Achil les tendinitis 2845028688 09892 M76.62 Bilateral atherosclerosis of arteries of lower limbs 1648378162 3700730 I70.924 [id number] KAREN KRAUS DPM [facility] [address] [place] [address] 05/02/2022 11:45:53 05/06/2022 13:33:46 Traumatic arthropathy-ankle 810442097 M12.571 Foot-drop 1025112 M21.37 1 Foot pain 14621400 M79.6 71 M79.672 Pain of ri ght ankle joint 9674497962 6122742 M25.571 Localized, primary osteoarthritis of the ankle and/or foot 767967700 M19.071 Plantar fa sciitis of left foot 8506657718 2524342 M72.2 Lesion of left plantar nerve 5265957613 81989 G57.62 Onychomycosis 962544354 B35.1 Left Achil les tendinitis 6546497811 51918 M76.62 Bilateral atherosclerosis of arteries of lower limbs 5821690684 6616398 I70.203 Xerosis du e to atopic dermatitis 327987860 L85.3 [id number] Juancho Medina MD [facility] (Adult Med) [address] [place] [address] 08/13/2022 13:32:10 08/14/2022 12:23:12 Essential hypertension 66161448 I10 He has enough medication . Will increase dose of amlodipine . 9 he is not on amlodipine . Discussed with patient, will reduce dose lisinopril as he asks., He can take another lisinopril today., if his blood pressure is still high, 05-29-2020 . BP is 146/90 mm Hg , 09-01-2020 , is better than at ER, he will monitor BP at home. Blood pressure is 100/62. 11-27-2020 . Type 2 josias betes mellitus 48681156 E11.65 Has enough medication s refilled. According his A!c today, 08-13-22, he is not sugar diabetes,, but advised him to cut down the sweet stuff, His blood sugar is 137 mg% in random today. in this office. Secondary peripheral neuropathy 985232 G63 On narcotic pain pill from his surgeon. Wanting hospital bed, pending the form to be filled out from [employer]. contact [employer] Isaura at [phone] as patient requested. [facility] 193714041 M79.604 Has been operated on , but can not walk. Will refer to different orthopedic group, agreeable with patient. Had operation again at [facility] 11-21-2019 , been D/C from hospital and recuperati ng at home., patient wants following vitamin to be prescribed . as suggested by his Physical therapist. today 05-09-2020 .Wants refill magnesium. Wants to be referred to [facility] orthopedic , 09-04-2020 . right leg still weak, can not stretch out, just had 2 operations , right hip and right femur, on wheelchair , muscle atrophy, stitches still on the right thigh, wound healed well. Right leg peripheral neuropathy 4756376489 46514 G62.9 Wants to try some med and lidocaine for the pain on the right eg and thigh. Hypertensive disorder 38 263400 I10 118/74 mm Hg 01-10-2021 . wants only lisinopril 40 mg, not HCTZ. Blood pressure is 130/80 mm Hg today 07-31-2021 ., Heart regular, no murmur, . Lungs clear to auscultati on. Abdomen soft, no mass. No edema of feet /legs. On wheelchair . As BP is 134/78 today. Ran out med , will refill today. Screening for malignant neoplasm of prostate 379137747 Z12.5 He wants to have prostate malignancy screening. HIV screen ing declined 3579249617 94245 Z53.20 He declined today 08-13-22. [id number] KAREN KRAUS DPM [facility] [address] [place] [address] 15154-[address] 2 08/14/2022 11:51:23 08/16/2022 09:12:32 Traumatic arthropathy-ankle 997050609 M12.571 Foot-drop 5941850 M21.37 1 Foot pain 81978266 M79.6 71 M79.672 Localized, primary osteoarthritis of the ankle and/or foot 341266325 M19.071 Plantar fa sciitis of left foot 6356863430 2536766 M72.2 Lesion of left plantar nerve 4320203931 40444 G57.62 Onychomycosis 255109387 B35.1 Left Achil les tendinitis 8600005375 54938 M76.62 Bilateral atherosclerosis of arteries of lower limbs 3585583178 9526089 I70.203 Xerosis du e to atopic dermatitis 733508656 L85.3 Lumbago with sciatica 20 1692390 M54.41 [id number] MD Wilfr[facility] Santillan (Adult Med) [address] [place] [address] 42387-653 0 09/20/2022 10:06:09 09/23/2022 15:50:50 Overweight 530013277 E66.3 BMI is 26.3 , near normal. Chronic neck pain 877072 2482 107 M54.2 Wants brace. He will go to his orinal surgeon who operated his neck for further evaluation . Infectious diarrheal disease 28644516 A09 He believed he has bacterial infection by consumed un-cooked food that caused diarrhea. Pain in bi lateral legs 5109626882 5014411 M79.604 M79.605 under the care of specialist sMishel [id number] MD [facility] Santillan (Adult Med) [address] [place] [address] 17613-106 0 02/18/2023 10:04:18 02/19/2023 16:03:29 Pain in left lower limb 573925122 M79.605 Will refer to PT and scottie serna. Erectile dysfunction 860 700357 F52.21 Still on viagra 100 mg as ordered. Complainin g of erectile dysfunction 229097080 N52.9 Discussed with patient, will try viagra. Wants testostero n test. SARS-CoV-2 mRNA vaccine declined 1736621529 Z28.21 He declined today 02-18-23. HIV screen ing declined 3885960698 17977 Z53.20 He declined today 08-13-22. He declined today 120-12-123 Influenza vaccination declined 044368650 Z28.21 [id number] KAREN KRAUS DPM [facility] [address] [address] 04/29/2023 14:08:38 05/02/2023 09:49:05 Traumatic arthropathy-ankle 415460328 M12.571 Foot-drop 6402685 M21.37 1 Foot pain 60033539 M79.6 71 M79.672 Localized, primary osteoarthritis of the ankle and/or foot 826208603 M19.071 Plantar fa sciitis of left foot 6422405939 7824074 M72.2 Lesion of left plantar nerve 2540189073 57225 G57.62 Onychomycosis 782949715 B35.1 Left Achil les tendinitis 5596510503 62683 M76.62 Bilateral atherosclerosis of arteries of lower limbs 4036903218 9381249 I70.203 Xerosis du e to atopic dermatitis 002155903 L85.3 Lumbago with sciatica 20 8534520 M54.41 [id number] MD Wilfrid Capone (Adult Med) [address] [place] [address] 71810-886 0 05/22/2023 14:04:59 05/23/2023 10:21:10 Fall 8150378 W19.XXXA Patient had fall in office this morning. Was sent to [facility] ER via ambulance. Reviewed imaging results- no fractures noted on XR or CT of C spine. Pain of ri ght hip joint 9262568055 84788 M25.551 Pt had hip surgery about 4 years ago after injury at work- has not been able to walk without use of walker since then.Chase nt recently had his walker break and has had difficulty getting around Interverte bral disc degeneration of cervical spine without prolapsed disc 072973354 M50.30 CT spine without contrast done at [facility] today (05/22/23) Body mass index 20-24 - normal 513186371 Z68.23 BMI 23.7 [id number] MD Wilfrid Byers (Adult Med) [address] [place] [address] 56491-753 0 07/14/2023 11:18:10 07/15/2023 08:00:03 Morbid obesity 437837537 E66.01 Hypertensive disorder 38 814427 I10 Ex-smoker 0171465 Z87.89 1 Essential hypertension 29613889 I10 Will cont current regimen, Reassess BP on return OV Hyperuricemia 65983392 E 79.0 Liver func tion tests outside reference range 048091237 R94.5 Secondary peripheral neuropathy 830235 G63 Pain in ri ght lower limb 197521166 M79.604 Ulcerative colitis 47420 004 K51.90 [id number] MD Wilfrid Byers (Adult Med) [address] [place] [address] 60130-902 0 10/20/2023 11:06:14 10/21/2023 16:06:22 Essential hypertension 00455768 I10 Did not take BP meds today Chronic low back pain 27 3278277 M54.50 Erectile dysfunction 860 194415 F52.21 Screening for malignant neoplasm of prostate 803901753 Z12.5 Hyperglycemia 15289908 R 73.9 [id number] Scottie Velez MD [facility] (Adult Med) [address] [place] [address] 61093-405 0 05/06/2024 11:23:19 05/07/2024 12:39:56 Insomnia 985391738 G47.00 Hypertensive disorder 38 199782 I10 Will add second agent Interverte bral disc degeneration of cervical spine without prolapsed disc 238174217 M50.30 Erectile dysfunction 860 016413 F52.21 Hyperglycemia 92902864 R 73.9 Hyperuricemia 28839710 E 79.0 Ulcerative colitis 28443 004 K51.90 F/U GI Secondary peripheral neuropathy 152232 G63 Liver func tion tests outside reference range 397061261 R94.5 Screening for malignant neoplasm of prostate 023809852 Z12.5 Abnormal gait 31655079 R 26.9 [id number] Scottie Velez MD [facility] (Adult Med) [address] [place] [address] 99300-000 0 06/28/2024 10:26:16 06/29/2024 11:16:53 Erectile dysfunction 722309660 F52.21 Essential hypertension 08130732 I10 Did not take BP meds today Ex-smoker 8698145 Z87.89 1 Hyperglycemia 84374648 R 73.9 Dysuria 19944038 R30.0 Health Concerns Section Related Observation LastModified by Organization Detai ls LastModified Time None Recorded Concern Status LastModified by Organization Details LastModified Time None Recorded Advance Directives Directive N: Payers Insurance Date Sequence Insurance Name Policy Number Policy Oquendo Covered Member ID Oquendo Member ID Guarantor Name 10/20/2023 2 [place] Miki Velez [id number] Miki Velez 10/20/2023 [place] [facility] Miki Velez [id number] Miki Velez 10/20/2023 1 [facility] (MEDICARE REPLACEMENT HMO) Miki Velez [id number] Miki Velez 09/17/2024 2 [place] WHEN MED[place]ARE OR MEDICARE REPLACEMENT PRIMARY) Miki Velez [id number] Miki Velez 10/20/2023 4 [facility] - DOS ON OR AFTER 2020 - DUAL ELIGIBLE (MEDICARE REPLACEMENT/A DVANTAGE - HMO) Miki Velez [id number] Miki Velez 10/20/2023 1 [employer] (MEDICARE REPLACEMENT/A DVANTAGE - HMO) Miki Velez [id number] Miki Velez 10/20/2023 1 [facility] - DOS ON OR AFTER 2020 - DUAL ELIGIBLE (MEDICARE REPLACEMENT/A DVANTAGE - HMO) Miki Velez [id number] Miki Velez 06/25/2024 1 [place] Miki Velez [id number] Miki Velez 10/20/2023 1 [facility] OPEN ACCESS (POS) [id number] Miki Velez [id number] Miki Velez 10/20/2023 1 [place] [facility] EMERGENCY DEPARTMENT OF PUBLIC AID Miki Velez [id number] Miki Velez 10/20/2023 2 [facility] SELECT (PPO) [id number] Miki Velez [id number] Miki Velez 10/20/2023 1 [facility] (MEDICAID HMO) Miki Velez [id number] Miki Velez 05/06/2024 [place] [facility] Miki Velez [id number] Miki Velez 06/25/2024 [place] [facility] Miki Velez [id number] Miki Velez 10/20/2023 2 [place] DEPARTMENT OF PUBLIC AID Miki Velez [id number] Miki Velez 05/06/2024 1 [place] Miki Velez [id number] Miki Velez Notes Date Note Type Note Provider Name and Address Organization Details Recorded Time 05/22/2023 text/html 47-year-old male here for new order for Walker. Patient has been trying to get new order since February but has had issue with insurance. Patient's walker broke recently and has only 3 out of 4 legs. Patient has been using it like that. Came in this morning and fell while walking through the door into the waiting room. Patient was transported to [facility] via EMS d/t neck pain, back pain, leg pain 2/2 fall. Patient feels sore and would like something for the pain. Denies N/V/D, LOC at time of fall, CP, SOB. Is having neck pain and unable to move it very much. Patient does have h/o hip surgery and leg/foot surgery. ZIA DENNY PA-C Attn: Accounting, 1 [facility], [place], [address], [facility] 05/22/2023 14:40:26 07/14/2023 text/html Here for med f/u /. Has Hx UC. Uses walker due to fall risk. Currently in PT for the past two weeks. Gabapentin dose decreased to 600 mg by neurologist Scottie Velez MD Attn: Accounting, 1 [place], [place], [address] [place] [address], [facility] 07/14/2023 12:44:35 10/20/2023 text/html Here for f/u. Scheduled to see a new neurosurgeon specialist. Scottie Velez MD Attn: Accounting, [address] [place], [address], [facility] 10/20/2023 13:02:27 05/06/2024 text/html Here for f/u. Pt would like to get a scooter to use in his home and when he has to venture outside the home for shopping, laundry, doctor's appointments. He will need the scooter in his home to facilitate mrADLS including meal preparation, accessing the bathroom for hygiene, cleaning. He has a walker but his legs tire easily, are painful with little to moderate activity. His hands are weak intermittently. There is enough room in the home to accommodate a scooter. Scottie Velez MD Attn: Accounting, [address] [facility], [place], [address], [facility] 05/06/2024 12:56:55 06/28/2024 text/html Here for f/u. Mcdonald s burning with urination since recent intercourse Scottie Velez MD Attn: Accounting,204 [address] [facility], [place], [address], [facility] 06/28/2024 11:04:17
--- OUTSIDE RECORDS SUMMARY | 2024-09-22 09:16 | XMS_ITS | Referral Summary ---
Author Organization [facility] Address [address] [place] [address] Care Team Providers Care Fire Crew Worker Name Role Phone Dwight Abrams MD Unavailable [phone] Jorge Guevara DPM Unavailable [phone] Scottie Velez MD Primary Care Provider Encounters Date Type Department Care Team Description 08/20/2024 [facility] 1st [place] [address] [place] [address] Dwight Abrams MD 08/13/2024 [facility] 1st [place] [address] [place] [address] Tawanda Whitfield MD 08/05/2024 [facility] 1st [place] [address] [place] [address] Dwight Abrams MD 07/30/2024 [facility] Pediatric Orthopedics [address] [place] [address] Dwight Abrams MD 07/28/2024 1:00 PM CDT Therapy [facility] [place] [address] Bella Sebastian PT Muscle weakness (generalized) 07/27/2024 Telephone [facility] 1st [place] [address] [place] [address] Dwight Abrams MD 07/27/2024 10:00 AM CDT Office Visit [facility] Neurology [facility] [address] [place] [address] [facility] Right leg weakness (Primary Dx) 07/22/2024 Telephone [facility] [place] [address] Bella Sebastian PT from Last 3 Months Allergies Active Allergy Reactions Criticality Noted Date Comments Cyclobenzaprine Hallucinations Medium 01/29/2022 Per patient Medications lisinopriL (PRINIVIL,ZESTR MS) 40 mg tabletIndicatio ns:hypertension Take 1 tablet (40 mg total) by mouth every morning Active multivitamin capsuleIndicati ons:Vitamin Deficiency Prevention Take 1 capsule by mouth daily before breakfast Active traZODone (DESYREL) 50 mg tabletIndicatio ns:insomnia associated with depression Take 1 tablet (50 mg total) by mouth nightly 2 Active Banophen 25 mg capsule Take 1 tablet/capsule (25 mg total) by mouth every 6 (six) hours as needed for sleep 3 Active baclofen (LIORESAL) 10 mg tablet Take 1 tablet (10 mg total) by mouth as needed for muscle spasms 3 Active mesalamine (LIALDA) 1.2 gram EC tabletIndicatio ns:Ulcerative Colitis Take 3 tablets (3.6 g total) by mouth 3 (three) times a day 3 Active ergocalciferol (VITAMIN D) 50,000 unit capsule Take 1 capsule (50,000 Units total) by mouth every 7 days 3 Active aspirin 81 mg chewable tablet Take 1 tablet (81 mg total) by mouth 2 (two) times a day 60 tablet 4 Active methocarbamoL (ROBAXIN) 500 mg tablet Take 1 tablet (500 mg total) by mouth 3 (three) times a day 90 tablet 2 4 Active Additional Information Patient not taking.Reported on 02/11/2024 tiZANidine (ZANAFLEX) 4 mg tablet Take 1 tablet (4 mg total) by mouth every 8 (eight) hours as needed for muscle spasms 60 tablet 2 4 Active Additional Information Patient not taking.Reported on 02/11/2024 meloxicam (MOBIC) 15 mg tablet TAKE 1 TABLET BY MOUTH EVERY DAY AFTER A MEAL Active gabapentin (NEURONTIN) 600 mg tablet Take 1 tablet (600 mg total) by mouth 3 (three) times a day 90 tablet 2 5 Active Active Problems Problem Noted Date Diagnosed Date Erectile dysfunction 10/20/2023 Hip joint valgus deformity, right 10/17/2023 Ulcerative colitis 07/14/2023 Degeneration of intervertebr al disc of cervical 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 Painful orthopaedic hardware 06/07/2021 Overview (06/07/2021): Added automatically from request for surgery [id number] Rupture of operation wound 05/15/2021 Overview (05/15/2021): Added automatically from request for surgery [id number] Cervical spondylosis without myelopathy 04/23/19 Leg pain, anterior, right 03/22/2021 Overview (03/22/2021): Added automatically from request for surgery [id number] Lumbar radiculopathy 02/12/2021 COVID-19 04/08/2020 Hip contracture, left 08/24/2019 Acquired cavovarus deformity of right foot 04/19 Pain 04/19/2019 Flexion contracture of knee 2018 Peripheral musculoskeletal gait disorder 019 Reduction defect of lower extremity 2018 Acute post-operative pain 10/06/2018 Functional gait abnormality 05/25/2018 Tear of medial meniscus of knee 05/25/2018 Abnormal liver function tests 02/20/2018 Alcoholism 02/20/2018 Right-sided low back pain with sciatica 02/21/20 18 Hyperglycemia 02/20/2018 Hyperuricemia 02/20/2018 Hip pain 02/20/2018 Pain in limb 02/20/2018 Pyrexia of unknown origin 02/20/2018 Seasonal allergies 02/20/2018 Sinus tachycardia 02/20/2018 Foot pain 08/15/2017 Hammer toe of right foot 05/30/2017 Essential hypertension 01/03/2017 Gastroesophageal reflux disease 01/03/2017 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 01/03/2017 Type 2 diabetes mellitus wit hout complication, without long-term current use of insulin 01/03/2017 Equinus contracture of ankle 06/21/2016 Mass of elbow region, bilateral 04/01/2016 Mass of neck 04/01/2016 Mass of subcutaneous tissue of back 04/01/2016 Pain of knee joint on movement 10/05/2015 Calcaneal spur 10/05/2015 Overview (01/23/2024): Description: Bilateral heel wedges, off the shelf Description: Bilateral heel wedges, off the shelf Overview: Description: Bilateral heel wedges, off the shelf Description: Bilateral heel wedges, off the shelf Description: Bilateral heel wedges, off the shelf Description: Bilateral heel wedges, off the shelf Description: Bilateral heel wedges, off the shelf Resolved Problems Problem Noted Date Diagnosed Date Resolved Date 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 2-4 times a month 12/26/2023 Q2: How many drinks containi ng alcohol do you have on a typical day when you are drinking? 1 or 2 12/26/2023 Q3: How often do you have si x or more drinks on one occasion? Never 12/26/2023 Hunger Vital Sign Answer Date Recorded Within the past 12 months, y ou worried that your food would run out before you got the money to buy more. Sometimes true Within the past 12 months, t he food you bought just didn't last and you didn't have money to get more. Sometimes true Personal Safety Answer Date Recorded Have you ever been in or are you currently in a harmful physical or emotional relationship or is someone making you feel afraid or unsafe? 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 Gender Identity Not on file Sexual Orientation Not on file Occupation Industry Job Start Date Job End Date Disabled Not on file Not on file Not on file Last Filed Vital Signs Vital Sign Reading Time Taken Comments Blood Pressure 150/84 07/27/2024 9:15 AM CDT Pulse 66 07/27/2024 9:15 AM CDT Temperature 36.5 C (97.7 F) 12/26/2023 7:58 AM CDT Respiratory Rate 12 12/26/2023 7:58 AM CDT Oxygen Saturation 99% 07/27/2024 9:15 AM CDT Inhaled Oxygen Concentration - - Weight 78.9 kg (174 lb) 07/27/2024 9:15 AM CDT Height 185.4 cm (6' 0.99) 07/27/2024 9:15 AM CD T Body Mass Index 22.96 07/27/2024 9:15 AM CDT Plan of Treatment Not on file Goals Goal Patient Goal Type Associated Problems Recent Progress Patient-Stated? Author CCM Chronic Pain Care Plan Chronic Care Management Worsening( 8:04 AM CDT) No Nadia Wright, RN Note: Problem: Chronic Pain Goals: 1. Minimize further functional decline 2. Maximize quality of life 3. Control pain Strategies: - Activity/exercise program recommendation - Conservative stepwise pain medicine strategy with multi-disciplinary approach - Recommend healthy lifestyle strategies and compensatory methods as needed Medical Devices Implanted Type Area Handicapper [employer] Device Identifier Shelf Expiration Date Model / Serial / Lot [employer]/Richco/O rtho [id number] - [id number] Implanted:Qty: 2 on 12/05/2021 by Dwight Abrams MD at [facility] Screw Right: Leg [employer] rtho [id number] / / [employer] rtho Evos 3.5mm 28mm Self Tap Cortex Screw Bone Sterile [id number] - [id number] Implanted:Qty: 1 on 12/05/2021 by Dwight Abrams MD at [facility] Screw [employer] rtho [id number] / / [employer]o Evos 87x11.2x2mm 34.4x1.7mm 6 Hole Low Profile Variable Angle [id number] - [id number] Implanted:Qty: 1 on 12/05/2021 by Dwight Abrams MD at [facility] Screw Right: Leg [employer] rtho [id number] / / [employer] rtho Evos 3.5mm 46mm Self Tap Cortex Screw Bone Sterile [id number] - [id number] Implanted:Qty: 1 on 12/05/2021 by Dwight Abrams MD at [facility] Screw Right: Leg [employer] rtho [id number] / / [employer] r[employer]o Evos 3.5mm 44mm Self Tap Cortex Screw Bone Sterile [id number] - [id number] Implanted:Qty: 1 on 12/05/2021 by Dwight Abrams MD at [facility] Screw Right: Leg [employer] rtho [id number] / / [employer] r[employer]o Trigen 10mm 42cm Antegrade Right Trochanteric 130d Nail [id number] - [id number] Implanted:Qty: 1 on 07/11/2021 by Dwight Abrams MD at [facility] Right: Femur [employer]o [id number] 05/26/2028 [id number] / / [id number] [employer] rtho 5mm 72mm Low Profile Internal Hex Femur Screw Bone Trigen [id number] - [id number] Implanted:Qty: 1 on 07/11/2021 by Dwight Abrams MD at [facility] Right: Femur [employer] rtho [id number] / / [employer]hew[employer] rtho 5mm 42.5mm Low Profile Internal Hex Femur Screw Bone Trigen [id number] - [id number] Implanted:Qty: 1 on 07/11/2021 by Dwight Abrams MD at [facility] Right: Femur [employer] rtho [id number] / / [employer]hew[employer]Rich[employer]/O rtho 5mm 47.5mm Low Profile Internal Hex Femur Screw Bone Trigen [id number] - [id number] Implanted:Qty: 1 on 07/11/2021 by Dwight Abrams MD at [facility] Right: Femur [employer] rtho [id number] / / [employer]hew[employer] rtho Evos 3.5mm 42mm Self Tap Cortex Screw Bone Sterile [id number] - [id number] Implanted:Qty: 1 on 12/05/2021 by Dwight Abrams MD at [facility] Right: Leg [employer]Rich[employer] rtho [id number] / / Procedures Procedure Name Priority Date/Time Associated Diagnosis Comments EGFR STAT 10/18/2022 5:39 PM CDT POCT HEMOGLOBIN A1C Routine 07/04/2021 1 1:52 AM CDT from Last 3 Months or Most Recently Relevant to Health Maintenance Results * eGFR (10/18/2022 5:39 PM CDT) eGFR 121 mL/min/1. 73 m2 [facility] PHILLIPS Comment: Interpretive Data Reference Interval Normal >/= 90 mL/min/1.73m2 Mildly decreased* 60 - 89 mL/min/1.73m2 Mildly to moderately decreased 45 - 59 mL/min/1.73m2 Moderately to severely decreased 30 - 44 mL/min/1.73m2 Severely decreased 15 - 29 mL/min/1.73m2 Kidney Failure < 15 mL/min/1.73m2 *Relative to young adult level Estimated glomerular filtration rate is determined by the 2020 CKD-EPI equation recommended by the National Kidney Foundation (A Unifying Approach to GFR Estimation: Recommendations of the NKF-ASK Task Force on Reassessing the Inclusion of Race in Diagnosing Kidney Disease, JASN 2020). The CKD-EPI equation should not be used for patients with unstable renal function and has not been validated in children and those over 70. Current interpretive data was last reviewed 2021. Blood 10/18/2022 5:39 PM CDT 10/18/2022 5:46 PM CDT us Scooby Rae MD LAB BLOOD ORDERABLE S Final Result [facility] [address] [facility] Department [place] [address] * (ABNORMAL) POCT hemoglobin A1c (07/04/2021 11:52 AM CDT) Hgb A1C, POC 5.9(H) 4.0 - 5.6 % [facility]I Est Average Gluc POC 123 mg/dL [facility] Comment: The ADA recommends reporting an estimated Average Glucose (eAG) with all Hemoglobin A1c results using the equation derived from a study of 507 normal and diabetic adults. Minority populations were underrepresented and children were not included. (Diabetes Care 31:3303-7136, 2008). The eAG is not equivalent to a fasting glucose. Blood 07/04/2021 11:5 2 AM CDT 07/04/2021 11:52 AM CDT us Dwight Abrams MD POINT OF CARE TEST ORDERAB LES Final Result [facility] Department [place] [address] from Last 3 Months or Most Recently Relevant to Health Maintenance [place] [address] [facility] MEDICARE IDPA [facility] MEDICARE MEDICARE Advance Directives For more information, please contact: [phone] * Full Code (Latest Code Status on File) Date Activated Date Inactivated Comments 10/30/2022 2:57 PM 10/31/2022 11:45 PM * Full Code Date Activated Date Inactivated Comments 12/05/2021 7:55 PM 12/06/2021 1:43 PM Care Teams Fire Crew Worker Relationship Specialty Start Date End Date Scottie Velez MD [address] [address] PCP - General Gastroenterology 11/19/23 Dwight Abrams MD [address] [address] Consulting Physician Pediatric Orthopedic Surgery 05/18/21 Jorge Guevara, DPM [address] [place] [address] Referring Physician Podiatry 08/16/22
--- OUTSIDE RECORDS SUMMARY | 2024-09-22 09:16 | XMS_ITS | Encounter Summary ---
Author Organization [facility] Address [address] [place] [address] Phone Care Team Providers Care Leather Production Artisan Name Role Phone Juancho Medina MD Primary Care Provider [phone] Dwight Abrams MD Unavailable [phone] Jorge Guevara DPM Unavailable [phone] Unknown, Notinfile Primary Care Provider Unavail able Scottie Velez MD Primary Care Provider Encounter Details Date Type Department Care Team (Late st Contact Info) Description 08/31/2021 Orders Only [facility] - [facility] Pediatric Orthopedics One [facility] 1st [place] [address] [place] [address] Dwight Abrams MD [address] [facility] [address] [place] [address] Social History Tobacco Use Types Packs/Day Years Used Date Smoking Tobacco: Former Cigarettes Q uit: 2018 Smokeless Tobacco: Never AUDIT-C Answer Date Recorded Q1: How often do you have a drink containing alc ohol? 2-3 times a week 07/04/2021 Q2: How many drinks containi ng alcohol do you have on a typical day when you are drinking? 1 or 2 07/04/2021 Q3: How often do you have si x or more drinks on one occasion? 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 Gender Identity Not on file Sexual Orientation Not on file Occupation Industry Job Start Date Job End Date Disabled Not on file Not on file Not on file documented as of this encounter Plan of Treatment Not on file documented as of this encounter Visit Diagnoses Not on filedocumented in this encounter Care Teams Leather Production Artisan Relationship Specialty [place] [address] [place] [address] PCP - General Internal Medicine 03/14/20 06/11/23 Unknown, Notinfile PCP - General 10/08/23 11/18/23 Scottie Velez MD [address] [place] [address] PCP - General Gastroenterology 11/19/23 Dwight Abrams MD [address] [address] Consulting Physician Pediatric Orthopedic Surgery 05/18/21 Jorge Guevara, EMILE [address] [place] [address] Referring Physician Podiatry 08/16/22 documented as of this encounter
--- OUTSIDE RECORDS SUMMARY | 2024-09-22 09:16 | XMS_ITS | Encounter Summary ---
Author Organization [facility] Address [address] [place] [address] Phone Care Team Providers Care Manager Income Tax Name Role Phone Juancho Medina MD Primary Care Provider [phone] Dwight Abrams MD Unavailable [phone] Jorge Guevara DPM Unavailable [phone] Unknown, Notinfile Primary Care Provider Unavail able Scottie Velez MD Primary Care Provider Encounter Details Date Type Department Care Team (Late st Contact Info) Description 02/06/2023 Orders Only [facility] [phone] Scanning, Provider Social History Tobacco Use Types Packs/Day Years Used Date Smoking Tobacco: Former Cigarettes Q uit: 2018 Smokeless Tobacco: Never AUDIT-C Answer Date Recorded Q1: How often do you have a drink containing alc ohol? Monthly or less 02/27/2022 Q2: How many drinks containi ng alcohol do you have on a typical day when you are drinking? 1 or 2 02/27/2022 Q3: How often do you have si x or more drinks on one occasion? Never 02/27/2022 Personal Safety Answer Date Recorded Have you ever been in or are you currently in a harmful physical or emotional relationship or is someone making you feel afraid or unsafe? 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 Minimize further functional decline 2. Maximize quality of life 3. Control pain Strategies: - Activity/exercise program recommendation - Conservative stepwise pain medicine strategy with multi-disciplinary approach - Recommend healthy lifestyle strategies and compensatory methods as needed documented as of this encounter Procedures Procedure Name Priority Date/Time Associated Diagnosis Comments SCAN - RADIOLOGY/IMAGING 02/06/2023 documented in this encounter Results * SCAN - RADIOLOGY/IMAGING (02/06/2023) Anatomical Region Laterality Modality Other us Provider Scanning Final Result documented in this encounter Visit Diagnoses Not on filedocumented in this encounter Care Teams Manager Income Tax Relationship Specialty Start Date End Date Juancho Medina MD [address] [address] PCP - General Internal Medicine 03/14/20 06/11/23 Unknown, Notinfile PCP - General 10/08/23 11/18/23 [place] [address] [place] [address] PCP - General Gastroenterology 11/19/23 Dwight Abrams MD [address] [address] Consulting Physician Pediatric Orthopedic Surgery 05/18/21 Jorge Guevara, STEFANIM [address] [place] [address] Referring Physician Podiatry 08/16/22 documented as of this encounter
--- OUTSIDE RECORDS SUMMARY | 2024-09-22 09:16 | XMS_ITS | Clinical Summary ---
Author Organization [facility] Address [address] [place] [address] Care Team Providers Care Branch Rental Manager Name Role Phone Dwight Abrams MD Unavailable [phone] Jorge Guevara DPM Unavailable [phone] Scottie Velez MD Primary Care Provider Allergies Active Allergy Reactions Criticality Noted Date Comments Cyclobenzaprine Hallucinations Medium 01/29/2022 Per patient Medications lisinopriL (PRINIVIL,ZESTR WY) 40 mg tabletIndicatio ns:hypertension Take 1 tablet [...] 03/10/2022 Overview (12/02/2022): pt recently fell at [facility], therapist did not place mats on ground for pt and pt fell. 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 Painful orthopaedic hardware 06/07/2021 Overview (06/07/2021): Added automatically from request for surgery [id number] Rupture of operation wound 05/15/2021 Overview (05/15/2021): Added automatically from request for surgery [id number] Cervical spondylosis without myelopathy 02/14/20 22 Leg pain, anterior, right 03/22/2021 Overview (03/22/2021): Added automatically from request for surgery [id number] Lumbar radiculopathy 02/12/2021 COVID-19 04/08/2020 Hip contracture, [...] Resolved Date Secondary peripheral neuropathy 02/20/2018 08/03/2020 Encounters Date Type Department Care Team Description 08/20/2024 Telephone [facility]) - [facility] Pediatric Orthopedics [facility] 1st [place] [address] [place] [address] Dwight Abrams MD 08/13/2024 Telephone [facility]) [facility] 1st [place] [address] [place] [address] Tawanda Whitfield MD 08/05/2024 Telephone [facility]) - [facility] 1st [place] [address] [place] [address] Dwight Abrams MD 07/30/2024 Telephone [facility] - [facility]oped[facility] [address] [facility] [address] [place] [address] Dwight Abrams MD 07/28/2024 1:00 PM CDT Therapy [facility] [place] [address] Bella Sebastian, PT Muscle weakness (generalized) 07/27/2024 10:00 AM CDT Office Visit [facility] [address] [place] [phone] Carmelo Smalls Si, MD Right leg weakness (Primary Dx) 07/27/2024 Telephone [facility]) [facility] 1st [place] [address] [place] [address] Dwight Abrams MD 07/22/2024 [facility] [place] [address] Bella Sebastian PT from Last 3 Months Immunizations Immunization Administration Dates Next Due Moderna SARS-CoV-2 Monovalent Vaccination (12+ Y RS) 08/03/2020 Tdap 10/02/2016 Surgical History Surgery Date Site/Laterality Comments NECK MASS EXCISION 03/10/2017 - 03/09/2018 FOOT SURGERY 03/10/2018 - 03/09/2019 Right drop foot ANKLE SURGERY 03/10/2018 - 03/09/2019 Right KNEE SURGERY 05/02/2021 Right rectus femnus release NECK MASS EXCISION 03/10/2018 - 03/09/2019 INCISION AND DRAINAGE 05/18/2021 Right knee FEMORAL VARUS DEROTATIONAL OSTEOTOMY 07/11/2021 Right FEMUR HARDWARE REMOVAL 12/05/2021 Right and ankle Medical History Medical History Date Comments Knee pain 10/05/2015 Acute post-operative pain 10/06/2018 Alcoholism (HCC) 02/20/2018 Chronic low back pain 02/20/2018 Hip pain 02/20/2018 Neuropathy 01/03/2017 Pain 04/19/2019 Pain in limb 02/20/2018 Secondary peripheral neuropathy 02/20/2018 Essential hypertension 01/03/2017 Sinus tachycardia 02/20/2018 Gastroesophageal reflux disease 01/03/2017 Acquired cavovarus deformity of right foot 04/19/2019 Calcaneal spur 10/05/2015 Description: Nicolas ateral heel wedges, off the shelf Description: Bilateral heel wedges, off the shelf Equinus contracture of ankle 06/21/2016 Mass of elbow region, bilateral 04/01/2016 Flexion contracture of knee 2018 Mass of subcutaneous tissue of back 04/01/2016 Hammer toe of right foot 05/30/2017 Tear of medial meniscus of knee 05/25/2018 Diabetes mellitus ([facility]) 02/20/2018 Hyperuricemia 02/20/2018 Type 2 diabetes mellitus wit hout complication, without long-term current use of insulin ([facility]) 01/03/2017 Functional gait abnormality 05/25/2018 Abnormal liver function tests 02/20/2018 Mass of neck 04/01/2016 Peripheral musculoskeletal gait disorder 019 Pyrexia of unknown origin 02/20/2018 Seasonal allergies 02/20/2018 Contracture of right hip joint 08/24/2019 Reduction defect of lower extremity 2018 Covid-19 04/08/2020 Pain of knee joint on movement 10/05/2015 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 01/03/2017 Abnormal gait 05/25/2018 Obesity Hypertension Swelling of ankle joint, uns pecified laterality Family History Medical History Relation Name Comments Chronic Pain Father Physical Disability Father Thyroid disease Father Cancer Mother Hypertension Mother Anesthesia problems Neg Hx Relation Name Status Comments Father Alive Mother Social History Tobacco Use Types Packs/Day [...] on file 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 Gender Identity Not on file Sexual Orientation Not on file Occupation Industry Job Start Date Job End Date Disabled Not on file Not on file Not on file Obstetrics History Last Filed Vital Signs Vital Sign Reading [...] 07/27/2024 9:15 AM CDT Plan of Treatment Health Maintenance Due Date Last Done Comments Albumin Creatinine Ratio, Urine 1976 Colon Cancer Screening-Colonoscopy 1976 Depression Screening 1976 Hepatitis C Screening 1976 Prostate Cancer Screening-PSA 1976 Dilated Eye Exam 1976 Foot Exam 1976 Lipid Panel 1976 Hepatitis B Screening 1994 Regular Well Visit/Exam 18-64 1994 Pneumococcal vaccine <65 (1 of 2 - PCV) 10/11/1995 Hemoglobin A1C 01/03/2022 07/04/2021, 04/09/2020 eGFR 10/19/2023 10/18/2022, 11/09, 07/12/2021, Additional history exists Covid-19 Vaccine ( - 2023-2 5 season) 2023 03/27/2021, 08/03/2020, 07/06/2020 Influenza Vaccine (#1) 2024 DTaP/Tdap/Td Vaccine (2 - Td or Tdap) 10/02/2026 10/02/2016 Goals Goal Patient Goal Type Associated Problems [...] as needed Medical Devices Implanted Type Area Credit Collections Clerk Device Identifier Shelf Expiration Date Model / Serial / Lot [employer]tho [id number] - [id number] Implanted:Qty: 2 on 12/05/2021 by Dwight Abrams MD at [facility] Screw Right: Leg [employer] [id number] / / [employer] Evos 3.5mm 28mm Self Tap Cortex Screw Bone Sterile [id number] - [id number] Implanted:Qty: 1 on 12/05/2021 by Dwight Abrams MD at [facility] Screw [employer] [id number] / / [employer] Evos 87x11.2x2mm 34.4x1.7mm 6 Hole Low Profile Variable Angle [id number] - [id number] Implanted:Qty: 1 on 12/05/2021 by Dwight Abrams MD at [facility] Screw Right: Leg [employer] [id number] / / [employer] Evos 3.5mm 46mm Self Tap Cortex Screw Bone Sterile [id number] - [id number] Implanted:Qty: 1 on 12/05/2021 by Dwight Abrams MD at [facility] Screw Right: Leg [employer] [id number] / / [employer] Evos 3.5mm 44mm Self Tap Cortex Screw Bone Sterile [id number] - [id number] Implanted:Qty: 1 on 12/05/2021 by Dwight Abrams MD at [facility] Screw Right: Leg [employer] [id number] / / [employer] Trigen 10mm 42cm Antegrade Right Trochanteric 130d Nail [id number] - [id number] Implanted:Qty: 1 on 07/11/2021 by Dwight Abrams MD at [facility] Right: Femur [employer] [id number] 05/26/2028 [id number] / / [id number] [employer] 5mm 72mm Low Profile Internal Hex Femur Screw Bone Trigen [id number] - [id number] Implanted:Qty: 1 on 07/11/2021 by Dwight Abrams MD at [facility] Right: Femur [employer] [id number] / / [employer] 5mm 42.5mm Low Profile Internal Hex Femur Screw Bone Trigen [id number] - [id number] Implanted:Qty: 1 on 07/11/2021 by Dwight Abrams MD at [facility] Right: Femur [employer] [id number] / / [employer]o 5mm 47.5mm Low Profile Internal Hex Femur Screw Bone Trigen [id number] - [id number] Implanted:Qty: 1 on 07/11/2021 by Dwight Abrams MD at [facility] Right: Femur [employer] [id number] / / [employer] Evos 3.5mm 42mm Self Tap Cortex Screw Bone Sterile [id number] - [id number] Implanted:Qty: 1 on 12/05/2021 by Dwight Abrams MD at [facility] Right: Leg [employer] [id number] / / Procedures Procedure Name Priority Date/Time Associated Diagnosis Comments EGFR STAT 10/18/2022 5:39 PM CDT POCT HEMOGLOBIN A1C Routine 07/04/2021 1 1:52 AM CDT from Last 3 Months or Most Recently Relevant to Health Maintenance Results * eGFR (10/18/2022 5:39 PM CDT) eGFR 121 mL/min/1. 73 m2 [facility] Comment: Interpretive Data Reference Interval Normal >/= [...] 5:39 PM CDT 10/18/2022 5:46 PM CDT Scooby Rae MD LAB BLOOD ORDERABLE S Final Result Performing Organization Address City/[facility]/ZIP Co de Phone Number [facility] [phone] [facility] Department [place] [address] * (ABNORMAL) POCT hemoglobin A1c (07/04/2021 11:52 AM CDT) Hgb A1C, POC 5.9(H) 4.0 - 5.6 % [facility] Est Average Gluc POC 123 mg/dL [facility] Comment: The ADA recommends reporting an estimated Average Glucose (eAG) with all Hemoglobin A1c results using the equation derived from a study of 507 normal and diabetic adults. Minority populations were underrepresented and children were not included. (Diabetes Care 31:1188-1958, 2008). The eAG is not equivalent to a fasting glucose. Blood 07/04/2021 11:5 2 AM CDT 07/04/2021 11:52 AM CDT Dwight Abrams MD POINT OF CARE TEST ORDERAB LES Final Result Performing Organization Address City/[facility]/ZIP Co de Phone Number [facility] Department [place] [address] from Last 3 Months or Most Recently Relevant to Health Maintenance Insurance MEDICARE [facility] Address: [place] [id number] IDPA MEDICARE IDPA IDPA MEDICARE MEDICARE Advance Directives For more information, please contact: [phone] * Full Code (Latest Code Status on File) Date Activated Date Inactivated Comments 10/30/2022 2:57 PM 10/31/2022 11:45 PM * Full Code Date Activated Date Inactivated Comments 12/05/2021 7:55 PM 12/06/2021 1:43 PM Care Teams Branch Rental Manager Relationship Specialty Start Date End Date Scottie Velez MD [address] [place] [address] PCP - General Gastroenterology 11/19/23 Dwight Abrams MD [address] [address] Consulting Physician Pediatric Orthopedic Surgery 05/18/21 Jorge Guevara DPM [address] [place] [address] Referring Physician Podiatry 08/16/22
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
[2024-09-22 09:37] LABS: Hematocrit 42.2 % (42.0-52.0); Hemoglobin 13.5 g/dL (14.0-18.0); Mean Corpuscular HGB Conc 32.0 g/dl (32-36); Mean Corpuscular Hemoglobin 29.5 pg (26-34); Mean Corpuscular Volume 92.1 fl (80-100); Platelet Count Result 335 k/mm3 (150-375); Red Blood Count 4.58 M/mm3 (4.6-6.20); White Blood Count 7.2 K/mm3 (4.5-10.0)
[2024-09-22 10:07] LABS: Alanine Aminotransferase 80 U/L (6-50); Albumin Level 4.1 g/dL (3.5-5.1); Alkaline Phosphatase 510 U/L (38-126); Anion Gap 6 mmol/L (4-12); Aspartate Amino Transferase 85 U/L (17-59); Bilirubin,Total 0.9 mg/dL (0.2-1.3); Blood Urea Nitrogen 12 mg/dL (9-20); CRP 1.5 mg/dL (<1.0); Calcium 9.6 mg/dL (8.4-10.2); Carbon Dioxide 28 mmol/L (22-30); Chloride 104 mmol/L (98-107); Estimated Glomerular Filt Rate > 60; Glucose 105 mg/dL (65-110); Potassium 4.1 mmol/L (3.4-5.0); Sodium 138 mmol/L (137-145); Total Protein 8.3 g/dL (6.3-8.2)
== END 2024-09-22 09:06 | disposition home or self-care (01) ==
LOC: ANHLAB 09:08
PROVIDERS: PCP Internal Medicine Gastroenterology; Visit Provider Internal Medicine Gastroenterology
DX: K51.90 Ulcerative colitis, unspecified, without complications (principal)
CPT/HCPCS: 36415; 80053; 85027; 85652; 86140

== ENCOUNTER 2024-10-25 09:10 | Outpatient (CLI) | payer MEDICARE, MEDICAID, SELFPAY ==
--- OUTSIDE RECORDS SUMMARY | 2024-10-25 09:40 | XMS_ITS | Clinical Summary ---
Author Organization [facility] Address [address] [place] [address] Care Team Providers Care Analysis Engineer Name Role Phone Unavailable Primary Care Provider [...] 03/10/2022 Overview (10/17/2023): pt recently fell at [facility], therapist did not place mats on ground for pt and pt fell. 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 Painful orthopaedic hardware 06/07/2021 Overview (10/17/2023): Added automatically from request for surgery [id number] Rupture of operation wound 05/15/2021 Overview (10/17/2023): Added automatically from request for surgery [id number] Cervical spondylosis without myelopathy 04/23/19 22 Leg pain, anterior, right 03/22/2021 Overview (10/17/2023): Added automatically from request for surgery [id number] Lumbar radiculopathy 02/12/2021 COVID-19 04/08/2020 Contracture of [...] Encounters Date Type Department Care Team Description 09/22/2024 External Device Data [facility] ABSTRACTION Provider, Abstract 09/21/2024 External Device Data [facility] ABSTRACTION Provider, Abstract 08/31/2024 External Device Data [facility] ABSTRACTION Provider, [...] 12/03/2023 9:52 AM CDT Plan of Treatment Upcoming Encounters Date Type Department Care Team (Late st Contact Info) Description 11/01/2024 2:30 PM CDT Office Visit [facility] at the [facility] [address] [place] [phone] Chi Landeros MD [address] [facility] [address] [place] [phone] Health Maintenance Due Date Last Done Comments DIABETES ANNUAL FOOT EXAM 1994 DIABETES MICROALBUMIN ANNUAL SCREEN 1994 LDL CHOLESTEROL ANNUAL 1994 HEPATITIS B VACCINES (1 of 3 - 19+ 3-dose series) 10/11/1995 FIT-DNA Q 3 years 2021 FIT/FOBT Q 1 year 2021 Flex Sig/CT Colonography Q 5 years 2021 COVID-19 Vaccine (2023-2 5 season) 2023 03/27/2021, 08/03/2020, 07/06/2020 INFLUENZA VACCINE (#1) 2024 DIABETES HBA1C Q 6 MONTHS 11/03/20242024, 07/04/2021, 04/09/2020 DIABETES ANNUAL RETINAL EXAM 02/26/2025, 02/27/2024, 10/29/2021, Additional history exists DTAP/TDAP/TD VACCINES (2 - T d or Tdap) 10/02/2026 10/02/2016 COLORECTAL SCREENING 02/18/2034 02/19/2024, 02/18/2024, 12/11/2022 Colorectal Cancer Screening 02/18/2034 Insurance MEDICARE PART A AND [place] [address]
--- OUTSIDE RECORDS SUMMARY | 2024-10-25 09:40 | XMS_ITS | Encounter Summary ---
Author Organization [facility] Address [address] [place] [address] Care Team Providers Care Table Maker Name Role Phone Shea Chauhan RN Unavailable Unavailable Juancho Medina MD Primary Care Provider [phone] Scottie Velez MD Primary Care Provider [phone] Reason for Visit * Reason Onset Date Comments General 12/29/2017 Encounter Details Date Type Department Care Team (Late st Contact Info) Description 12/29/2017 Telephone [facility] [address] [place] [phone] Jenna Palmer General Social History Tobacco Use [...] Assessment Author No 06/05/2016 8:16 AM CDT Mayrlou Christianson RN documented as of this encounter [...] Under Investigation 04/08/2020 04/08/2020 04/08/2020 12:50 PM COMMAND AND CONTROL SPECIALIST COVID-19 Confirmed 04/08/2020 04/08/2020 4:33 AM COMMAND AND CONTROL SPECIALIST documented as of this encounter Care Teams Table Maker Relationship Specialty Start Date End Date Juancho Medina MD [address] [place] [phone] PCP - General 12/03/17 08/24/24 Scottie Velez MD [address] [place] [phone] PCP - General Gastroenterology 08/25/24 Shea Chauhan RN Registered Nurse 09/03/17 documented as of this encounter
--- OUTSIDE RECORDS SUMMARY | 2024-10-25 09:40 | XMS_ITS | Encounter Summary ---
Author Organization [facility] Address [address] [place] [address] Care Team Providers Care Slip Cover Maker Name Role Phone Shea Chauhan RN Unavailable Unavailable Juancho Medina MD Primary Care Provider [phone] Scottie Velez MD Primary Care Provider [phone] Reason for Visit * Reason Onset Date Comments General 01/01/2018 Encounter Details Date Type Department Care Team (Late st Contact Info) Description 01/01/2018 Telephone [facility] [address] [place] [phone] Jenna Palmer General Social History Tobacco Use [...] Author No 06/05/2016 8:16 AM ADWOAT Marylou Christainson RN * Is person blind or have [...] Under Investigation 04/08/2020 04/08/2020 04/08/2020 12:50 PM FIRMWARE ENGINEER COVID-19 Confirmed 04/08/2020 04/08/2020 4:33 AM FIRMWARE ENGINEER documented as of this encounter Care Teams Slip Cover Maker Relationship Specialty Start Date End Date Juancho Medina MD [address] [place] [phone] PCP - General 12/03/17 08/24/24 Scottie Velez MD [address] [place] [phone] PCP - General Gastroenterology 08/25/24 Shea Chauhan RN Registered Nurse 09/03/17 documented as of this encounter
--- OUTSIDE RECORDS SUMMARY | 2024-10-25 09:40 | XMS_ITS | Encounter Summary ---
Author Organization [facility] Address [address] [place] [address] Care Team Providers Care Carpet Journeyman Name Role Phone Shea Chauhan RN Unavailable Unavailable Juancho Medina MD Primary Care Provider [phone] Scottie Velez MD Primary Care Provider [phone] Reason for Visit * Reason Onset Date Comments MEDICATION REFILL 05/01/2020 Encounter Details Date Type Department Care Team (Late st Contact Info) Description 05/01/2020 Refill [facility] [address] [facility] [place] [address] Evy Parks, RN [address] [facility]] [address] [place] [address] MEDICATION REFILL Social History Tobacco Use Types Packs/Day Years Used Date Smoking Tobacco: Former Cigars Smokeless Tobacco: Former Alcohol Use Standard Drinks/Week Comments Yes 0 (1 standard drink = 0.6 oz pure alcohol) 1 DRINK MAYBE 2-3 TIMES A M [facility] Sex and Gender Information Value Date Recorded Sex Assigned at Not on file Legal Sex Male 11:37 AM CDT Gender Identity Not on file Sexual Orientation Not on file COVID-19 Exposure Response Date Recorded In the last month, have you been in contact with someone who was confirmed or suspected to have Coronavirus / COVID-19? No / Unsure 04/27/2020 12:26 PM EMPLOYEE COMMUNICATIONS SPECIALIST documented as of this encounter Functional Status * Is person deaf or have serious hearing difficulty? Answer Date of Assessment Author No 04/08/2020 6:00 PM EMPLOYEE COMMUNICATIONS SPECIALIST Meseret Kapoor RN * Is person blind or have serious difficulty seeing? Answer Date of Assessment Author No 04/08/2020 6:00 PM EMPLOYEE COMMUNICATIONS SPECIALIST Meseret Kapoor RN * Does person have serious difficulty walking/climbing stairs? Answer Date of Assessment Author Yes 04/08/2020 6:00 PM Meseret Jules RN * Does person have difficulty dressing/bathing? Answer Date of Assessment Author Yes 04/08/2020 6:00 PM EMPLOYEE COMMUNICATIONS SPECIALIST Meseret Kapoor RN * Does person have [...] time and a lace up ankle brace. OYEE COMMUNICATIONS SPECIALIST documented in this encounter Plan of Treatment Not on file documented as of this encounter Goals Goal Patient Goal Type Associated Problems Recent Progress Patient-Stated? Author PAIN General No Edilson Han RN Note: Expected end date: ongoing Patient's pain/discomfort is manageable. Interventions: documented as of this encounter Visit Diagnoses Not on filedocumented in this encounter Care Teams Carpet Journeyman Relationship Specialty Start Date End Date Juancho Medina MD [address] [place] [phone] PCP - General 12/03/17 08/24/24 Scottie Velez MD [address] [place] [address] PCP - General Gastroenterology 08/25/24 Shea Chauhan RN Registered Nurse 09/03/17 documented as of this encounter
--- OUTSIDE RECORDS SUMMARY | 2024-10-25 09:41 | XMS_ITS | Encounter Summary ---
Author Organization [facility] Address [address] [place] [address] Care Team Providers Care Network Operations Lead Name Role Phone Shea Chauhan RN Unavailable Unavailable Juancho Medina MD Primary Care Provider [phone] Scottie Velez MD Primary Care Provider [phone] Reason for Visit * Reason Onset Date Comments MEDICATION REFILL 11/19/2023 Encounter Details Date Type Department Care Team (Late st Contact Info) Description 11/19/2023 Telephone [facility] - Centralized Scheduling [address] [place] [phone] Yash Hanks MD [address] [address] MEDICATION REFILL Social History Tobacco Use Types [...] on filedocumented in this encounter Care Teams Network Operations Lead Relationship Specialty Start Date End Date Juancho Medina MD [address] [place] [phone] PCP - General 12/03/17 08/24/24 Scottie Velez MD [address] [place] [address] PCP - General Gastroenterology 08/25/24 Shea Chauhan RN Registered Nurse 09/03/17 documented as of this encounter
--- OUTSIDE RECORDS SUMMARY | 2024-10-25 09:41 | XMS_ITS | Encounter Summary ---
Author Organization [facility] Address [address] [place] [address] Care Team Providers Care Trial Justice Name Role Phone Shea Chauhan RN Unavailable Unavailable Juancho Medina MD Primary Care Provider [phone] Scottie Velez MD Primary Care Provider [phone] Reason for Visit * Reason Onset Date Comments Question 08/25/2018 Appointment 08/25/2018 Encounter Details Date Type Department Care Team (Late st Contact Info) Description 08/25/2018 Telephone [facility] [address] [place] [address] Chi Iverson, DO [address] [facility] [address] [place] [phone] Question; Appointment Social History Tobacco Use Types [...] Under Investigation 04/08/2020 04/08/2020 04/08/2020 12:50 PM VESSEL SCRAPPER HELPER COVID-19 Confirmed 04/08/2020 04/08/2020 4:33 AM VESSEL SCRAPPER HELPER documented as of this encounter Care Teams Trial Justice Relationship Specialty Start Date End Date Juancho Medina MD [address] [place] [phone] PCP - General 12/03/17 08/24/24 Scottie Velez MD [address] [place] [address] PCP - General Gastroenterology 08/25/24 Shea Chauhan RN Registered Nurse 09/03/17 documented as of this encounter
--- OUTSIDE RECORDS SUMMARY | 2024-10-25 09:41 | XMS_ITS | Encounter Summary ---
Author Organization [facility] Address [address] [place] [address] Care Team Providers Care Slip Laster Name Role Phone Shea Chauhan RN Unavailable Unavailable Juancho Medina MD Primary Care Provider [phone] Scottie Velez MD Primary Care Provider [phone] Encounter Details Date Type Department Care Team (Late st Contact Info) Description 02/18/2023 Telephone [facility] [address] [place] [address], [place] [address] Yash Hanks MD [address] [place] [phone] Social History Tobacco Use Types Packs/Day [...] of Assessment Author Yes 04/08/2020 6:00 PM BRINE PROCESS OPERATOR Meseret Kapoor RN * Does person have difficulty dressing/bathing? Answer Date of Assessment Author Yes 04/08/2020 6:00 PM BRINE PROCESS OPERATOR Meseret Kapoor RN * Does person have difficulty doing errands alone? Answer Date of Assessment Author Yes 04/08/2020 6:00 PM BRINE PROCESS OPERATOR Meseret Kapoor RN documented as of this [...] [facility] Patient call back number: [phone] . E PROCESS OPERATOR documented in this encounter Plan of Treatment [...] on filedocumented in this encounter Care Teams Slip Laster Relationship Specialty Start Date End Date Juancho Medina MD [address] [place] [address] PCP - General 12/03/17 08/24/24 Scottie Velez MD [address] [place] [phone] PCP - General Gastroenterology 08/25/24 Shea Chauhan, RN Registered Nurse 09/03/17 documented as of this encounter
--- OUTSIDE RECORDS SUMMARY | 2024-10-25 09:41 | XMS_ITS | Clinical Summary ---
Author Organization [facility] Address [address] [place] [address] Care Team Providers Care Clinical Lab Specialist Name Role Phone Unavailable Primary Care Provider Unavailabl e Social History Tobacco Use Types Packs/Day Years Used Date Smoking Tobacco: Never Assessed Sex and Gender Information Value Date Recorded Sex Assigned at Not on file Legal Sex Male 1:55 PM SILK SCREENER Gender Identity Not on file Sexual Orientation [...]
--- OUTSIDE RECORDS SUMMARY | 2024-10-25 09:41 | XMS_ITS | Patient Health Record ---
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 especially trauma physicians that potentially [...] Coverage End Date [place] [address] [address] [place] [address] [id number] Miki Velez Self - patient is the insured 5
--- OUTSIDE RECORDS SUMMARY | 2024-10-25 09:41 | XMS_ITS | Encounter Summary ---
Author Organization [facility] Address [address] [facility] [place] [address] Care Team Providers Care Box Spinner Name Role Phone Shea Chauhan RN Unavailable Unavailable Juancho Medina MD Primary Care Provider [phone] Scottie Velez MD Primary Care Provider [phone] Reason for Visit * Reason Onset Date Comments Question 10/26/2018 Encounter Details Date Type Department Care Team (Late st Contact Info) Description 10/26/2018 Telephone [facility] Orth[facility] [address] [place] [address] Jenna Palmer Question Social History [...] questions and would like a callback @ [phone]. documented in this encounter Plan of Treatment Not on file documented as of this encounter Visit Diagnoses Not on filedocumented in this encounter Additional Health Concerns Infection Onset Date Last Indicated Resolved Time COVID-19 Under Investigation 04/08/2020 04/08/2020 04/08/2020 12:50 PM EXTRACT OPERATOR COVID-19 Confirmed 04/08/2020 04/08/2020 4:33 AM EXTRACT OPERATOR documented as of this encounter Care Teams Box Spinner Relationship Specialty Start Date End Date Juancho Medina MD [address] [place] [phone] PCP - General 12/03/17 08/24/24 Scottie Velez MD [address] [place] [phone] PCP - General Gastroenterology 08/25/24 Shea Chauhan, RN Registered Nurse 09/03/17 documented as of this encounter
--- OUTSIDE RECORDS SUMMARY | 2024-10-25 09:41 | XMS_ITS | Clinical Summary ---
Author Organization [facility] Address [address] [place] [address] Care Team Providers Care Painting Machine Operator Name Role Phone Unavailable Primary Care Provider [...] 2018 3:40 PM CDT Plan of Treatment Health Maintenance Due Date Last Done Comments CT Colonography 1976 Colonoscopy 1976 Colorectal Cancer Screening 1976 FIT-DNA (Cologuard) 1976 FIT 1976 FOBT 1976 Sigmoidoscopy 1976 Annual Visit Topic 1977 MMR Vaccines (1 of 1 - Stand ana series) 1977 Hepatitis C Screening 1994 DTaP/Tdap/Td Vaccines (1 - Tdap) 10/11/1995 Hepatitis B Vaccines (1 of 3 - 19+ 3-dose series) 10/11/1995 Pneumococcal Vaccine: Pediat rics (0 to 5 years) and At-Risk Patients (6 to 64 Years) (1 of 4 - PCV) 10/11/1995 HIB Vaccines Aged Out No longer eligi ble based on patient's age to complete this topic HPV Vaccines Aged Out No longer eligi ble based on patient's age to complete this topic Hepatitis A Vaccines Aged Out No long er eligible based on patient's age to complete this topic IPV Vaccines Aged Out No longer eligi ble based on patient's age to complete this topic Meningococcal Vaccine Aged Out No jordin rio eligible based on patient's age to complete this topic Advance Directives * Full Resuscitation (Latest Code Status on File) Date Activated Date Inactivated Comments 2018 4:39 PM 10/12/2018 10:01 PM
--- OUTSIDE RECORDS SUMMARY | 2024-10-25 09:41 | XMS_ITS | Encounter Summary ---
Author Organization [facility] Address [address] [facility] [place] [address] Care Team Providers Care Aquatic Biologist Name Role Phone Shea Chauhan RN Unavailable Unavailable Juancho Medina MD Primary Care Provider [phone] Scottie Velez MD Primary Care Provider [phone] Reason for Visit * Reason Onset Date Comments General 11/18/2018 Encounter Details Date Type Department Care Team (Late st Contact Info) Description 11/18/2018 Telephone [facility] Orth[facility] [address] [place] [phone] Jenna Palmer General Social History Tobacco Use [...] that he needs someone to call him OMDE about an order and medications. Patient call back number is [phone]. documented in this encounter Plan of Treatment Not on file documented as of this encounter Visit Diagnoses Not on filedocumented in this encounter Additional Health Concerns Infection Onset Date Last Indicated Resolved Time COVID-19 Under Investigation 04/08/2020 04/08/2020 04/08/2020 12:50 PM MANAGER OF DATA COVID-19 Confirmed 04/08/2020 04/08/2020 4:33 AM MANAGER OF DATA documented as of this encounter Care Teams Aquatic Biologist Relationship Specialty Start Date End Date Juancho Medina MD [address] [place] [phone] PCP - General 12/03/17 08/24/24 Scottie Velez MD [address] [place] [phone] PCP - General Gastroenterology 08/25/24 Shea Chauhan RN Registered Nurse 09/03/17 documented as of this encounter
--- OUTSIDE RECORDS SUMMARY | 2024-10-25 09:41 | XMS_ITS | Encounter Summary ---
Author Organization [facility] Address [address] [place] [address] Care Team Providers Care Divorce Attorney Name Role Phone Shea Chauhan RN Unavailable Unavailable Juancho Medina MD Primary Care Provider [phone] Scottie Velez MD Primary Care Provider [phone] Reason for Visit * Reason Onset Date Comments Med Question 10/16/2018 Encounter Details Date Type Department Care Team (Late st Contact Info) Description 10/16/2018 Telephone [facility] [address] [place] [address] Chi Iverson, DO [address] [facility] [address] [address] [place] [phone] Med Question Social History Tobacco Use Types [...] Under Investigation 04/08/2020 04/08/2020 04/08/2020 12:50 PM CYBER INSTRUCTOR COVID-19 Confirmed 04/08/2020 04/08/2020 4:33 AM CYBER INSTRUCTOR documented as of this encounter Care Teams Divorce Attorney Relationship Specialty Start Date End Date Juancho Medina MD [address] [place] [address] PCP - General 12/03/17 08/24/24 Scottie Velez MD [address] [place] [address] PCP - General Gastroenterology 08/25/24 Shea Chauhan RN Registered Nurse 09/03/17 documented as of this encounter
--- OUTSIDE RECORDS SUMMARY | 2024-10-25 09:41 | XMS_ITS | Encounter Summary ---
Author Organization [facility] Address [address] [place] [address] Care Team Providers Care Six Pack Packer Name Role Phone Unknown, Provider Primary Care Provider UnavailShea [place] RN Unavailable Unavailable Juancho Medina MD Primary Care Provider [phone] Scottie Velez MD Primary Care Provider [phone] Reason for Visit * Reason Onset Date Comments Refill Request 11/12/2017 Encounter Details Date Type Department Care Team (Late st Contact Info) Description 11/12/2017 Telephone [facility] [address] [place] [address] Chi Iverson, DO [address] [facility] [address] [place] [phone] Refill Request Social History Tobacco Use Types [...] Assessment Author No 06/05/2016 8:16 AM CDT [place]inane , Marylou Rosy, RN * Does [...] Under Investigation 04/08/2020 04/08/2020 04/08/2020 12:50 PM BENCH ASSEMBLER OPERATOR COVID-19 Confirmed 04/08/2020 04/08/2020 4:33 AM BENCH ASSEMBLER OPERATOR documented as of this encounter Care Teams Six Pack Packer Relationship Specialty Start Date End Date Unknown, Provider PCP - General 07/04/17 12/02/17 Juancho Medina MD [address] [place] [phone] PCP - General 12/03/17 08/24/24 Scottie Velez MD [address] [place] [phone] PCP - General Gastroenterology 08/25/24 Shea Chauhan RN Registered Nurse 09/03/17 documented as of this encounter
--- OUTSIDE RECORDS SUMMARY | 2024-10-25 09:41 | XMS_ITS | Encounter Summary ---
Author Organization [facility] Address [address] [facility] [place] [address] Care Team Providers Care Pt Sitter Name Role Phone Unknown, Provider Primary Care Provider UnavailShea [place] RN Unavailable Unavailable Juancho Medina MD Primary Care Provider [phone] Scottie Velez MD Primary Care Provider [phone] Reason for Visit * Reason Onset Date Comments Medication Issue 11/14/2017 Encounter Details Date Type Department Care Team (Late st Contact Info) Description 11/14/2017 Telephone [facility] [address] [place] [address] Chi Iverson, DO [address] [facility] [address] [place] [phone] Medication Issue Social History Tobacco Use Types [...] Under Investigation 04/08/2020 04/08/2020 04/08/2020 12:50 PM SCALE INSTALLER COVID-19 Confirmed 04/08/2020 04/08/2020 4:33 AM SCALE INSTALLER documented as of this encounter Care Teams Pt Sitter Relationship Specialty Start Date End Date Unknown, Provider PCP - General 07/04/17 12/02/17 Juancho Medina MD [address] [place] [address] PCP - General 12/03/17 08/24/24 Scottie Velez MD [address] [place] [phone] PCP - General Gastroenterology 08/25/24 Shea Chauhan RN Registered Nurse 09/03/17 documented as of this encounter
--- OUTSIDE RECORDS SUMMARY | 2024-10-25 09:42 | XMS_ITS | Encounter Summary ---
Author Organization [facility] Address [address] [place] [address] Care Team Providers Care Operations General Agent Name Role Phone Shea Chauhan RN Unavailable Unavailable Juancho Medina MD Primary Care Provider [phone] Scottie Velez MD Primary Care Provider [phone] Encounter Details Date Type Department Care Team (Late st Contact Info) Description 01/10/2020 Telephone [facility] [address] [place] [address] Neela Herbert MD [address] [place] [address] Social History Tobacco Use Types Packs/Day Years [...] results. Please call. Patient Call Back number: [phone] NESS SERVICES MANAGER * Telephone Encounter - Betzaida Alarcon - 01/10/2020 2:31 PM CST .scg NESS SERVICES MANAGER documented in this encounter Plan of Treatment Not on file documented as of this encounter Visit Diagnoses Not on filedocumented in this encounter Additional Health Concerns Infection Onset Date Last Indicated Resolved Time COVID-19 Under Investigation 04/08/2020 04/08/2020 04/08/2020 12:50 PM BUSINESS SERVICES MANAGER COVID-19 Confirmed 04/08/2020 04/08/2020 4:33 AM BUSINESS SERVICES MANAGER documented as of this encounter Care Teams Operations General Agent Relationship Specialty Start Date End Date Juancho Medina MD [address] [place] [address] PCP - General 12/03/17 08/24/24 Scottie Velez MD [address] [place] [address] PCP - General Gastroenterology 08/25/24 Shea Chauhan RN Registered Nurse 09/03/17 documented as of this encounter
--- OUTSIDE RECORDS SUMMARY | 2024-10-25 09:42 | XMS_ITS | Encounter Summary ---
Author Organization [facility] Address [address] [place] [address] Care Team Providers Care Metal Roofing Mechanic Name Role Phone Shea Chauhan RN Unavailable Unavailable Juancho Medina MD Primary Care Provider [phone] Scottie Velez MD Primary Care Provider [phone] Reason for Visit * Reason Onset Date Comments Question 12/30/2019 Encounter Details Date Type Department Care Team (Late st Contact Info) Description 12/30/2019 Telephone [facility] [address] [place] [address] Chi Iverson, DO [address] [facility] [address] [place] [address] Question Social History Tobacco Use [...] Assessment Author No 10/07/2018 4:30 PM ADWOAT Vik Boyce RN * Is person blind or [...] surgical notes, xrays and MRI'S faxed to [place] [facility] fax# [phone] Attn: Juan Alberto Linton Pt reuwsted to please reach out if he needs to do anything additional documented in this encounter Plan of Treatment Not on file documented as of this encounter Visit Diagnoses Not on filedocumented in this encounter Additional Health Concerns Infection Onset Date Last Indicated Resolved Time COVID-19 Under Investigation 04/08/2020 04/08/2020 04/08/2020 12:50 PM LINE HAUL TRUCK DRIVER COVID-19 Confirmed 04/08/2020 04/08/2020 4:33 AM LINE HAUL TRUCK DRIVER documented as of this encounter Care Teams Metal Roofing Mechanic Relationship Specialty Start Date End Date Juancho Medina MD [address] [place] [address] PCP - General 12/03/17 08/24/24 Scottie Velez MD [address] [place] [address] PCP - General Gastroenterology 08/25/24 Shea Chauhan RN Registered Nurse 09/03/17 documented as of this encounter
--- OUTSIDE RECORDS SUMMARY | 2024-10-25 09:42 | XMS_ITS | Clinical Summary ---
Author Organization [facility] [employer] Address [address] [place] [address] Care Team Providers Care Gericare Aide Name Role Phone Shea Chauhan RN Unavailable Unavailable Scottie Velez MD Primary Care Provider [phone] Source Comments [facility] [employer],non-owned Affiliates and Associated Physician Practices is amultiple site organization consisting of ambulatory clinics and hospital sitesin [place], [place], [place] and [place]. This disclosure is being madepursuant to the Care Everywhere program and may not contain all information available regarding this patient. Last updated 17.[facility] [employer] Allergies Active Allergy Reactions Criticality Noted Date [...] hours as needed 3 Active HYDROcodone-acet aminophen (Howell) 5-325 MG tablet Take 2 (two) tablets [...] Active vitamin D, ergocalciferol, (Drisdol) 1.25 MG (58293 UT) capsule Take 1 (one) capsule by [...] 03/10/2022 Overview (09/18/2022): pt recently fell at [facility], therapist did not place mats on ground for pt and pt fell. Intractable neuropathic pain of lower extremity 02/28/2022 Diabetic neuropathy 02/28/2022 Knee pain 12/05/2021 Neuropathy of right sciatic nerve 11/13/2021 Rupture of operation wound 05/15/2021 Overview (09/24/2021): Added automatically from request for surgery [id number] COVID-19 04/08/2020 Hip contracture, left 08/24/2019 Contracture [...] [facility] [address] [place] [id number] Gifty Huffman PA-C Right knee pain, unspecified chronicity 09/20/2024 Orders Only [facility] [address] [place] [address] Lacey Miles PA Bilateral ankle [...] 81.2 kg (179 lb) 01/22/2024 10:30 AM PROFESSIONAL CASTER Height 185.4 cm (6' 1) 01/22/2024 10:30 AM PROFESSIONAL CASTER Body Mass Index 23.62 01/22/2024 10:30 AM PROFESSIONAL CASTER Plan of Treatment Health Maintenance Due Date [...] Interventions: PT Medical Devices Implanted Type Area Guest Services Coordinator Device Identifier Shelf Expiration Date Model / Serial / Lot 3 Hole Head / 9 Hole Shaft Plate Implanted:Qty: 1 on 09/03/2017 by Chi Iverson DO at [facility] Right: [employer]e [employer] [id number] / / 2.0 Locking Screw Implanted:Qty: 1 on 09/03/2017 by Chi Iverson DO at [facility] Right: [employer] [id number] / / 2.0 Mm Cortex Screw Implanted:Qty: 1 on 09/03/2017 by Chi Iverson DO at [facility] Right: [employer]e [employer] [id number] / / 2.0 Locking Screw Implanted:Qty: 1 on 09/03/2017 by Chi Iverson DO at [facility] Right: [employer]e [employer] [id number] / / Max Vpc Screw 4.0 Mm X 40 Mm Implanted:Qty: 1 on 09/03/2017 by Chi Iverson DO at [facility] Right: Toe [employer] [id number] / / 2.0 Locking Implanted:Qty: 1 on 09/03/2017 by Chi Iverson DO at [facility] Right: [employer] [id number] / / Screw 3.5mm 42mm Tib Periart Prox Lck Ss Implanted:Qty: 1 on 10/06/2018 by Chi Iverson DO at [facility] Right: Ankle [employer] [id number] / / Screw 3.5mm 46mm Tib Periart Prox Lck M Implanted:Qty: 1 on 10/06/2018 by Chi Iverson DO at [facility] Right: Ankle [employer] [id number] / / Screw 3.5mm 48mm Tib Periart Prox Lck Ss Implanted:Qty: 1 on 10/06/2018 by Chi Iverson DO at [facility] Right: Ankle [employer] [id number] / / Screw 3.5mm 2.5mm 26mm Slf-Tap Sm Hex Implanted:Qty: 1 on 10/06/2018 by Chi Iverson DO at [facility] Right: Ankle [employer] [id number] / / Screw 3.5mm 2.5mm 30mm Augustine Slf-Tap Sm Implanted:Qty: 1 on 10/06/2018 by Chi Iverson DO at [facility] Right: Ankle [employer] [id number] / / Screw 3.5mm 2.5mm 40mm Slf-Tap Sm Hex Implanted:Qty: 1 on 10/06/2018 by Chi Iverson DO at [facility] Right: Ankle [employer] [id number] / / Plate 94mm 6 Hl Lck Lopro 2 Comp Slot Ss Implanted:Qty: 1 on 10/06/2018 by Chi Iverson DO at [facility] [employer] [id number] / / Screw 3.5mm 34mm Periart Lck Ss Implanted:Qty: 1 on 10/06/2018 by Chi Iverson DO at [facility] Right: Ankle [employer] [id number] / / Explanted Type Area Guest Services Coordinator Device Identifier Shelf Expiration Date Model / Serial / Lot 2.0 Locking Screw Explanted:Qty: 1 on 09/03/2017 by Chi Iverson DO at [facility] Right: [employer] [id number] / / 2.0 Locking Screw Explanted:Qty: 1 on 09/03/2017 by Chi Iverson DO at [facility] Right: [employer] [id number] / / Wire K 1.6mm 150mm 1 End Troc Pnt Ss Explanted:Qty: 1 on 10/06/2018 by Chi Iverson DO at [facility] [employer] [id number] / / Wire K 2mm 150mm 1 End Troc Pnt Ss Sm Explanted:Qty: 1 on 10/06/2018 by Chi Iverson DO at [facility] [employer] [id number] / / Procedures Procedure Name Priority Date/Time Associated Diagnosis Comments COMPREHENSIVE METABOLIC PANEL STAT 10/16/2022 2:05 PM CDT HEPATITIS C ANTIBODY Routine 05/09/2021 11:56 AM PROFESSIONAL CASTER Arthralgia, unspecified joint Sacroiliitis Encounter for therapeutic drug monitoring High risk medication use HEMOGLOBIN A1C Routine 04/09/2020 2:32 AM PROFESSIONAL CASTER from Last 3 Months or Most Recently Relevant to Health Maintenance Results * (ABNORMAL) COMPREHENSIVE METABOLIC PANEL (10/16/2022 2:05 PM CDT) BUN 10 7 - 26 mg/dL 10/16/2022 3:10 PM [facility] Creatinine 0.72 0.71 - 1.16 mg/dL 10/16/2022 3:10 PM [facility] Sodium 140 136 - 145 mmol/L 10/16/2022 3:10 PM [facility] Potassium 4.6(H) 3.5 - 4.5 mmol/L 10/16/2022 3:10 PM [facility] Chloride 106 98 - 107 mmol/L 10/16/2022 3:10 PM [facility] CO2 26 22 - 29 mmol/L 10/16/2022 3:10 PM [facility] Glucose 84 70 - 115 mg/dL 10/16/2022 3:10 PM [facility] Calcium 9.1 8.4 - 10.2 mg/dL 10/16/2022 3:10 PM [facility] Protein Total 7.2 6.0 - 8.3 g/dL 10/16/2022 3:10 PM [facility] Albumin 2.7(L) 3.4 - 5.0 g/dL 10/16/2022 3:10 PM [facility] Bilirubin Total 0.5 0.2 - 1.2 mg/dL 10/16/2022 3:10 PM [facility] Alkaline Phosphatase 108 40 - 150 U/L 10/16/2022 3:10 PM [facility] ALT 11 5 - 55 U/L 10/16/2022 3:10 PM [facility] AST 16 5 - 34 U/L 10/16/2022 3:10 PM [facility] Anion Gap 13 8 - 18 10/16/2022 3:10 PM [facility] BUN/Creatinine Ratio 14 7 - 23 10/16/2022 3:10 PM [facility] Osmolality Calculated 288 270 - 300 mOsm/kg 10/16/2022 3:10 PM [facility] Albumin/Globulin Ratio 0.6(L) 1.1 - 2.3 10/16/2022 3:10 PM [facility] eGFR by CKD-EPI >90 >=90 mL/min/1.7 3 m2 10/16/2022 3:10 PM [facility] Blood BLOOD SPECIMEN / Unknown Venipuncture / Unknown 10/16/2022 2:05 PM CDT 10/16/2022 2:[address] [facility] us Codey Alcantara PA-C LAB - CHEMISTRY OR DERABLES Final Result [facility] [address] [place] [address], [facility] [phone] * HEPATITIS C ANTIBODY (05/09/2021 11:56 AM PROFESSIONAL CASTER) Hepatitis C Antibody Non-react nereida Non-reac tive 05/09/2021 2:07 PM PROFESSIONAL CASTER [facility] Comment:Hepatitis C Antibody screen [...] Lab Venipuncture / Unknown 05/09/2021 11:56 AM PROFESSIONAL CASTER 05/09/2021 1:28 PM PROFESSION[facility]STER Lakeisha Issa MD LAB - CHEMISTRY ORDERCarito KEEN Final Result [facility] [address] [place] [address], [facility] [phone] * HEMOGLOBIN A1C (04/09/2020 2:32 AM PROFESSIONAL CASTER) Hemoglobin A1c 6.3 4.4 - 6.3 % 04/09/2020 9:21 AM [facility] Estimated Average Glucose 134 mg/dL 04/09/2020 9:21 AM [facility] Comment: HbA1c Interpretation: Treatment target values recommended by ADA and other clinical organizations should be used to evaluate metabolic control in patients. Treatment Target Values: Normal : < 5.7% Pre-diabetes: 5.7-6.4% Diabetes: Equal to or greater than 6.5% Reference: [place] [employer] Association Standards of Care in Diabetes -2014 In patients 70 years and older consider HbA1c target range of 7.0-7.5% Reference: Diabetes Mellitus in Older People: Position Statement on behalf of the International Association of Gerontology and Geriatrics (IAGG), the Diabetes Working Green Party for Older People (EDWPOP), and the International Task Force of Experts in Diabetes. Johnny Arzate, et al. J [place] [employer] Association. 2012 Test results diagnostic of diabetes should be repeated for confirmation. The Sebia Capillary 2 assay for the measurement of HbA1c is a National Glycohemoglobin Standardization Program (NGSP)certified method. Blood BLOOD SPECIMEN / Unknown Venipuncture / Unknown 04/09/2020 2:32 AM PROFESSIONAL CASTER 04/09/2020 2:53 AM PROFESSIONAL CASTER Gordo Dennis DO LAB - CHEMISTRY ORDERABLES Fin al Result [facility] [address] [place] [address], [facility] [phone] from Last 3 Months or Most Recently Relevant to Health Maintenance Insurance [facility]ICAID [facility] Member Subscriber Plan / Payer (Ef fective 2017-Present) Name:Miki Velez Relation to Subscriber:Self Name:MIKI VELEZ Payer ID:Not on file Group ID:Not on file Type:Medicaid Address: [place] [id number] MEDICARE MEDICAID - [place] SELF PAY NO INSURANCE Member Subscriber Plan / Payer (Ef fective for All Dates) Name:Miki Velez Member ID:Not on file Relation to Subscriber:Not on file Name:MIKI VELEZ Subscriber ID:Not on file (Home) Address: [address] [place] [id number] Payer ID:Not on file Group ID:Not on file Type:Self Pay Address: [place], [place] MEDICARE Member Subscriber Plan / Payer (Ef fective 2024-Present) Name:Miki Velez Member ID:[id number] Relation to Subscriber:Self Name:Miki Vleez Subscriber ID:[id number] Payer ID:Not on file Group ID:Not on file Type:Medicare Address: [place] [phone] MEDICARE Member Subscriber Plan / Payer (Ef fective 2024-Present) Name:Miki Velez Member ID:[id number] Relation to Subscriber:Self Name:Miki Velez Subscriber ID:[id number] Payer ID:Not on file Group ID:Not on file Type:Medicare Address: [place] [phone] Advance Directives * Full Code (Latest Code [...] 5:37 PM 10/05/2018 5:37 PM Care Teams Gericare Aide Relationship Specialty Start Date End Date Scottie Velez MD [address] [place] [address] PCP - General Gastroenterology 08/25/24 Shea Chauhan, RN Registered Nurse 09/03/17
--- OUTSIDE RECORDS SUMMARY | 2024-10-25 09:42 | XMS_ITS ---
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 [place] [address] [place] [address] 03/31/2024 Master Mihai Femoral anteversion of both [...] to see if few orthopedic surgeons at [facility] in [facility] especially trauma physicians that potentially do [...]
--- OUTSIDE RECORDS SUMMARY | 2024-10-25 09:42 | XMS_ITS | Clinical Summary ---
Author Organization [facility] Address [address] [place] [address] Care Team Providers Care Reporter Anchor Name Role Phone Dwight Abrams MD Unavailable [phone] Jorge Guevara DPM Unavailable [phone] Scottie Velez MD Primary Care Provider Allergies Active Allergy Reactions Criticality Noted Date Comments Cyclobenzaprine Hallucinations Medium 01/29/2022 Per patient Medications lisinopriL (PRINIVIL,ZEST RIL) 40 mg tabletIndicati ons:hypertensi on Take 1 tablet (40 mg total) by mouth every morning Active multivitamin capsuleIndicat ions:Vitamin Deficiency Prevention Take 1 capsule by mouth daily before breakfast Active traZODone (DESYREL) 50 mg tabletIndicati ons:insomnia associated with depression Take 1 tablet (50 mg total) by mouth nightly 2 Active Banophen 25 mg capsule Take 1 tablet/capsule (25 mg total) by mouth every 6 (six) hours as needed for sleep 3 Active baclofen (LIORESAL) 10 mg tablet Take 1 tablet (10 mg total) by mouth as needed for muscle spasms 3 Active mesalamine (LIALDA) 1.2 gram EC tabletIndicati ons:Ulcerative Colitis Take 3 tablets (3.6 g total) [...] BY MOUTH EVERY DAY AFTER A MEAL 4 Active amLODIPine (NORVASC) 2.5 mg tablet Take 1 tablet (2.5 mg total) by mouth daily Active nystatin cream APPLY TOPICALLY TO FEET TWICE DAILY Active gabapentin (NEURONTIN) 600 mg tablet Take 1 tablet (600 mg total) by mouth 3 (three) times a day 90 tablet 2 5 Active oxyCODONE-acet aminophen (PERCOCET) 5-325 mg per tabletIndicati ons:Pain Take 1 tablet by mouth every 8 (eight) hours as needed for pain for up to 10 doses 10 tablet 5 Active gabapentin (NEURONTIN) 600 mg tablet Take 1 tablet (600 mg total) by mouth 3 (three) times a day 90 tablet 2 5 10/12/19 25 Discontin ued(Reord er) Active Problems Problem Noted Date Diagnosed Date Secondary peripheral autonomic neuropathy 2024 Femoral anteversion of both lower extremities Diabetes mellitus 10/08/2024 Chronic low back pain 10/08/2024 Arthralgia of right knee 09/06/2024 Does mobilize using walker 07/29/2024 Dysuria 06/28/2024 Muscle weakness (generalized) 06/01/2024 Pain of both hip joints 01/09/2024 Erectile dysfunction 10/20/2023 Hip joint valgus deformity, right 10/17/2023 Ulcerative colitis 07/14/2023 Degeneration of intervertebr al disc of cervical spine without disc herniation 05/22/2023 Contracture of Achilles tendon, unspecified late rality 10/30/2022 Contracture of Achilles tendon 09/12/2022 Fall 03/10/2022 Overview (12/02/2022): pt recently fell at [facility], therapist did not place mats on ground for pt and pt fell. 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 Painful orthopaedic hardware 06/07/2021 Overview (06/07/2021): Added automatically from request for surgery [id number] Rupture of operation wound 05/15/2021 Overview (05/15/2021): Added automatically from request for surgery [id number] Cervical spondylosis without myelopathy 04/23/19 22 Leg pain, anterior, right 03/22/2021 Overview (03/22/2021): Added automatically from request for surgery [id number] Lumbar radiculopathy 02/12/2021 COVID-19 04/08/2020 Hip contracture, left 08/24/2019 Acquired cavovarus deformity of right foot 04/19 Pain 04/19/2019 Flexion contracture of knee 2018 Peripheral musculoskeletal gait disorder 019 Reduction defect of lower extremity 2018 Acute post-operative pain 10/06/2018 Abnormal gait 05/25/2018 Tear of medial meniscus of knee 05/25/2018 Abnormal results of liver function studies 02/20 Alcoholism 02/20/2018 Right-sided low back pain with sciatica 02/21/20 18 Hyperglycemia 02/20/2018 Hyperuricemia 02/20/2018 Pain in right hip 02/20/2018 Pain in limb 02/20/2018 Pyrexia of [...] Encounters Date Type Department Care Team Description 10/20/2024 Telephone [facility] Orthopedics and Sports Medicine [address] [place] [address] [address] [place] [address] Obi Champagne MD 10/19/2024 8:30 AM CDT Office Visit [facility] Orthopedics and Sports Medicine [address] [place] [address] [address] [place] [address] Obi Champagne MD Primary osteoarthritis of both hips (Primary Dx) 10/19/2024 8:04 AM CDT - 10/19/2024 11:59 PM CDT Hospital Encounter [facility] Diag Imaging [address] [place] [address] Left hip pain; Right hip pain Discharge Disposition: Discharge to home or self care 10/19/2024 Telephone [facility] Pediatric Orthopedics [facility] 1st [place] [address] [place] [address] Dwight Abrams MD 10/15/2024 [facility] Pediatric Orthopedics [address] [facility] 1st Floor [address] [place] [address] Dwight Abrams MD 10/15/2024 [facility] Pediatric Orthopedics [facility] 1st [place] [address] [place] [address] Dwight Abrams MD 10/14/2024 Orders Only [facility] Pediatric Orthopedics [facility] 1st [place] [address] [place] [address] Dwight Abrams MD Weakness of both lower extremities (Primary Dx); Right hip pain; Muscle weakness (generalized) 10/14/2024 [facility] Pediatric Orthopedics [address] [place] [address] 1st Floor [address] [place] [address] Dwight Abrams MD 10/14/2024 [facility] Pediatric Orthopedics [facility] 1st [place] [address] [place] [address] Dwight Abrams MD 10/13/2024 9:20 AM CDT Office Visit [facility] Pediatric Orthopedics [facility] 1st [place] [address] [place] [address] Dwight Abrams MD Right hip pain (Primary Dx) 10/05/2024 [facility] Pediatric Orthopedics [facility] 1st [place] [address] [place] [address] Dwight Abrams MD 10/04/2024 Orders Only [facility] Lab [address] [place] [address] Jerry Smith MD 10/01/2024 9:55 AM CDT Lab [facility] [address] [place] [address] 08/20/2024 Telephone [facility]) - [facility] Pediatric Orthopedics [facility] 1st [place] [address] [place] [address] Dwight Abrams MD 08/13/2024 Telephone [facility]) - [facility] Pediatric Orthopedics [facility] 1st [place] [address] [place] [address] Tawanda Whitfield MD 08/05/2024 Telephone [facility]) - [facility] Pediatric Orthopedics [facility] 1st [place] [address] [place] [address] Dwight Abrams MD 07/30/2024 Telephone [facility] - [facility] Pediatric Orthopedics [address] [facility] [address] [place] [address] Dwight Abrams MD 07/28/2024 1:00 PM CDT Therapy [facility] [place] [address] Bella Sebastian PT Muscle weakness (generalized) 07/27/2024 10:00 AM CDT Office Visit [facility] Neurology [address] [place] [address] Carmelo Smalls Si, MD Right leg weakness (Primary Dx) 07/27/2024 Telephone [facility]) - [facility] Pediatric Orthopedics [facility] 1st [place] [address] [place] [address] Dwight Abrams MD from Last 3 Months Immunizations Immunization Administration [...] medial meniscus of knee 05/25/2018 Diabetes mellitus ([facility]) 02/20/2018 Hyperuricemia 02/20/2018 Type 2 diabetes mellitus wit hout complication, without long-term current use of insulin ([facility]) 01/03/2017 Functional gait abnormality 05/25/2018 Abnormal liver [...] on file 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 Gender Identity Not on file Sexual Orientation [...] - - Weight 78.9 kg (174 lb) 10/19/2024 8:34 AM CDT Height 185.4 cm (6' 0.99) 10/19/2024 8:34 AM CD T Body Mass Index 22.96 10/19/2024 8:34 AM CDT Plan of Treatment Health Maintenance [...] PCV) 10/11/1995 Hemoglobin A1C 01/03/2022 07/04/2021, 04/09/2020 Covid-19 Vaccine (4 - 2023-2 5 season) 2023 03/27/2021, 08/03/2020, 07/06/2020 Influenza Vaccine (#1) 2024 eGFR 10/01/2025 10/01/2024, 10/08, 12/05/2021, Additional history exists DTaP/Tdap/Td Vaccine (2 - Td or Tdap) [...] as needed Medical Devices Implanted Type Area De Alcoholizer Device Identifier Shelf Expiration Date Model / Serial / Lot [employer]/Rich[employer]/O rtho [id number] - [id number] Implanted:Qty: 2 on 12/05/2021 by Dwight Abrams MD at [facility] Screw Right: Leg [employer]o [id number] / / [employer]o Evos 3.5mm 28mm Self Tap Cortex Screw Bone Sterile [id number] - [id number] Implanted:Qty: 1 on 12/05/2021 by Dwight Abrams MD at [facility] Screw [employer]o [id number] / / [employer] Evos 87x11.2x2mm 34.4x1.7mm 6 Hole Low Profile Variable Angle [id number] - [id number] Implanted:Qty: 1 on 12/05/2021 by Dwight Abrams MD at [facility] Screw Right: Leg [employer]o [id number] / / [employer]o Evos 3.5mm 46mm Self Tap Cortex Screw Bone Sterile [id number] - [id number] Implanted:Qty: 1 on 12/05/2021 by Dwight Abrams MD at [facility] Screw Right: Leg [employer]o [id number] / / [employer]o Evos 3.5mm 44mm Self Tap Cortex Screw Bone Sterile [id number] - [id number] Implanted:Qty: 1 on 12/05/2021 by Dwight Abrams MD at [facility] Screw Right: Leg [employer]o [id number] / / [employer] r[employer]o Trigen 10mm 42cm Antegrade Right Trochanteric 130d Nail [id number] - [id number] Implanted:Qty: 1 on 07/11/2021 by Dwight Abrams MD at [facility] Right: Femur [employer]o [id number] 05/26/2028 [id number] / / [id number] [employer] r[employer]o 5mm 72mm Low Profile Internal Hex Femur Screw Bone Trigen [id number] - [id number] Implanted:Qty: 1 on 07/11/2021 by Dwight Abrams MD at [facility] Right: Femur [employer]tho [id number] / / [employer] rtho 5mm 42.5mm Low Profile Internal Hex Femur Screw Bone Trigen [id number] - [id number] Implanted:Qty: 1 on 07/11/2021 by Dwight Abrams MD at [facility] Right: Femur [employer]o [id number] / / [employer] rtho 5mm 47.5mm Low Profile Internal Hex Femur Screw Bone Trigen [id number] - [id number] Implanted:Qty: 1 on 07/11/2021 by Dwight Abrams MD at [facility] Right: Femur [employer] rtho [id number] / / [employer] rtho Evos 3.5mm 42mm Self Tap Cortex Screw Bone Sterile [id number] - [id number] Implanted:Qty: 1 on 12/05/2021 by Dwight Abrams MD at [facility] Right: Leg [employer] rtho [id number] / / Procedures Procedure Name Priority Date/Time Associated Diagnosis Comments XR FEMUR RIGHT 2 OR MORE VIEWS Schedule Routine, Read Routine (OP Routine) 10/19/2024 8:29 AM CDT Right hip pain XR HIP LEFT 2 OR 3 VIEWS Schedule Routine, Read Routine (OP Routine) 10/19/2024 8:29 AM CDT Left hip pain EGFR Routine 10/01/2024 10:13 AM CDT COMPREHENSIVE METABOLIC PANEL Routine 10/01/2024 10:13 AM CDT ERYTHROCYTE SEDIMENTATION RATE Routine 10/01/2024 10:13 AM CDT CBC WITHOUT DIFFERENTIAL Routine 10/01/2024 10:13 AM CDT CRP (ACUTE PHASE) Routine 10/01/2024 10: 13 AM CDT POCT HEMOGLOBIN A1C Routine 07/04/2021 1 1:52 AM CDT from Last 3 Months or Most Recently Relevant to Health Maintenance Results * XR Femur Right 2 or More Views (10/19/2024 8:29 AM CDT) Anatomical Region Laterality Modality Lower Extremities, Thigh, Femur Right Computed Radiography Impressions 10/19/2024 8:33 AM CDT DJD right hip. Retained femoral nail from old healed femur fracture. Narrative 10/19/2024 8:33 AM CDT EXAM DESCRIPTION: XR Femur Right 2 or More Views REASON FOR STUDY: Right hip pain COMPARISON: None FINDINGS: Two views of the entire femur are reviewed. These images reveal no acute fractures or dislocations. There is a retained intramedullary nail and an old healed midshaft femur fracture. Degenerative changes are seen at the hip joint with osteophyte formation and joint space narrowing. Obi Champagne MD [facility] XR PROCEDURES Final Resu lt * XR Hip Left 2 or 3 Views (10/19/2024 8:29 AM CDT) Anatomical Region Laterality Modality Lower Extremities, Hip, Pelvis Left C omputed Radiography Impressions 10/19/2024 8:31 AM CDT DJD left hip. Narrative 10/19/2024 8:31 AM CDT EXAM DESCRIPTION: XR Hip Left 2 or 3 Views REASON FOR STUDY: Left hip pain COMPARISON: Left hip x-ray from a pelvis view on 02/12/2021 FINDINGS: Two views of the left hip are reviewed. These images reveal no acute fractures or dislocations. There is developing progressive osteoarthritis noted. This includes joint space narrowing and osteophyte formation which is more pronounced than on comparison to previous x-rays. Obi Champagne MD [facility] XR PROCEDURES Final Resu lt * eGFR (10/01/2024 10:13 AM CDT) Pathologist [facility] eGFR >90 >=60 mL/min/1. 73 m2 Comment: Interpretive Data Reference Interval Normal >/= [...] interpretive data was last reviewed 2021. Blood 10/01/2024 10:1 3 AM CDT 10/01/2024 10:17 AM CDT Jerry Buckley MD LAB BLOOD ORDERABL ES Final Result Performing Organization Address City/[facility]/ZIP Co de Phone Number [address] [employer] [address] * (ABNORMAL) Erythrocyte sedimentation rate (10/01/2024 10:13 AM CDT) Pathologist [facility] Erythrocyte sedimentation rate 53(H) 1 - 15 mm/hr Blood 10/01/2024 10:1 3 AM CDT 10/01/2024 10:17 AM CDT Jerry Buckley MD LAB BLOOD ORDERABL ES Final Result Performing Organization Address [facility] Co de Phone Number [address] [address] * (ABNORMAL) CBC without differential (10/01/2024 10:13 AM CDT) Pathologist [facility] WBC 7.56 3.80 - 9.90 K/cumm Hgb 13.7 13.0 - 17.5 g/dL [facility] Hct 42.7 38.9 - 50.3 % [facility] Plt 393 150 - 400 K/cumm [facility] MPV 9.1 9.1 - 12.3 fL [facility] RBC 4.70 4.30 - 5.80 M/cumm [facility] MCV 90.9 81.3 - 96.4 fL [facility] MCH 29.1 27.1 - 33.3 pg [facility] MCHC 32.1(L) 32.3 - 35.7 g/dL [facility] RDW CV 14.8 11.1 - 14.9 % [facility] RDW SD 49.6(H) 35.7 - 48.1 fL [facility] NRBC abs 0.00 0.00 - 0.01 K/cumm [facility] Blood 10/01/2024 10:1 3 AM CDT 10/01/2024 10:17 AM CDT Jerry Buckley MD LAB BLOOD ORDERABL ES Final Result Performing Organization Address City/[facility] Co de Phone Number [address] [place] [address] * (ABNORMAL) CRP (acute phase) (10/01/2024 10:13 AM CDT) [facility] CRP 34.9(H) <=10.0 mg/L Blood 10/01/2024 10:1 3 AM CDT 10/01/2024 10:17 AM CDT Jerry Buckley MD LAB BLOOD ORDERABL ES Final Result Performing Organization Address [facility] de Phone Number [address] [place] [address] * (ABNORMAL) Comprehensive metabolic panel (10/01/2024 10:13 AM CDT) [facility] Sodium 140 135 - 145 mmol/L Potassium, pl 4.0 3.3 - 4.9 mmol/L [facility] Chloride 102 97 - 110 mmol/L [facility] CO2 26 22 - 32 mmol/L [facility] Anion gap 12 2 - 15 mmol/L [facility] BUN 9 6 - 25 mg/dL [facility] Creatinine 0.73(L) 0.80 - 1.30 mg/dL [facility] Glucose 114 70 - 199 mg/dL [facility] Comment: Interpretive Data Fasting glucose >/= 126 mg/dl is diagnostic for diabetes. Fasting is defined as no caloric intake for at least 8 hours. Fasting glucose between 100 mg/dl to 125 mg/dl is diagnostic of prediabetes. In a patient with classic symptoms of hyperglycemia or hyperglycemic crisis, a random glucose >/= 200 mg/dl is diagnostic for diabetes. In the absence of unequivocal hyperglycemia, results should be confirmed by repeat testing. The classification and Diagnosis of Diabetes Diabetes Care 2021; 46: S19-S40. Current interpretive data was last revised 2022. Calcium 9.9 8.5 - 10.3 mg/dL [facility] Bilirubin, total 0.7 0.1 - 1.2 mg/dL [facility] Protein, pl 8.1 6.5 - 8.5 g/dL [facility] Albumin 4.1 3.5 - 5.0 g/dL [facility] Alk phos 670(H) 40 - 130 Units/L [facility] ALT 67(H) 7 - 55 Units/L [facility] AST 68(H) 10 - 50 Units/L [facility] Blood 10/01/2024 10:1 3 AM CDT 10/01/2024 10:17 AM CDT Jerry Buckley MD LAB BLOOD ORDERABL ES Final Result [facility] [address] [facility] Department of Laboratories [place], [place] [id number] * (ABNORMAL) POCT hemoglobin A1c (07/04/2021 11:52 AM CDT) Hgb A1C, POC 5.9(H) 4.0 - 5.6 % [facility] Est Average Gluc POC 123 mg/dL [facility] Comment: The ADA recommends reporting an estimated Average Glucose (eAG) with all Hemoglobin A1c results using the equation derived from a study of 507 normal and diabetic adults. Minority populations were underrepresented and children were not included. (Diabetes Care 31:7567-2926, 2008). The eAG is not equivalent to a fasting glucose. Blood 07/04/2021 11:5 2 AM CDT 07/04/2021 11:52 AM CDT Dwight Abrams MD POINT OF CARE TEST ORDERAB LES Final Result [facility] Department [place] [address] from Last 3 Months or Most Recently Relevant to Health Maintenance Insurance MEDICARE IDPA MEDICARE IDPA [facility] MEDICARE MEDICARE Advance Directives For more information, please contact: [phone] * Full Code (Latest Code Status on File) Date Activated Date Inactivated Comments 10/30/2022 2:57 PM 10/31/2022 11:45 PM * Full Code Date Activated Date Inactivated Comments 12/05/2021 7:55 PM 12/06/2021 1:43 PM Care Teams Reporter Anchor Relationship Specialty Start Date End Date Scottie Velez MD [address] [address] PCP - General Gastroenterology 11/19/23 Dwight Abrams MD [address] [address] Consulting Physician Pediatric Orthopedic Surgery 05/18/21 Jorge Guevara, EMILE [address] [place] [address] Referring Physician Podiatry 08/16/22
--- OUTSIDE RECORDS SUMMARY | 2024-10-25 09:42 | XMS_ITS | Encounter Summary ---
Author Organization [facility] Address [address] [place] [address] Phone Care Team Providers Care Adjunct Faculty Instructor Name Role Phone Juancho Medina MD Primary Care Provider [phone] Dwight Abrams MD Unavailable [phone] Jorge Guevara DPM Unavailable [phone] Unknown, Notinfile Primary Care Provider Unavail able Scottie Velez MD Primary Care Provider Encounter Details Date Type Department Care Team (Late st Contact Info) Description 08/31/2021 Orders Only [facility] - [facility] Pediatric Orthopedics [facility] 1st [place] [address] [place] [address] Dwight Abrams MD 1 [facility] [address] [place] [address] Social History Tobacco Use Types Packs/Day Years [...] on file 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 Gender Identity Not on file Sexual Orientation Not on file Occupation Industry Job Start Date Job End Date Disabled Not on file Not on file Not on file documented as of this encounter Plan of Treatment Not on file documented as of this encounter Visit Diagnoses Not on filedocumented in this encounter Care Teams Adjunct Faculty Instructor Relationship Specialty [place] [address] [place] [address] PCP - General Internal Medicine 03/14/20 06/11/23 Unknown, Notinfile PCP - General 10/08/23 11/18/23 Scottie Velez MD [address] [place] [address] PCP - General Gastroenterology 11/19/23 Dwight Abrams MD [address] [address] Consulting Physician Pediatric Orthopedic Surgery 05/18/21 Jorge Guevara, EMILE [address] [place] [address] Referring Physician Podiatry 08/16/22 documented as of this encounter
--- OUTSIDE RECORDS SUMMARY | 2024-10-25 09:42 | XMS_ITS | Encounter Summary ---
Author Organization [facility] Address [address] [place] [address] Care Team Providers Care Outreach Assistant Name Role Phone Shea Chauhan RN Unavailable Unavailable Juancho Medina MD Primary Care Provider [phone] Scottie Velez MD Primary Care Provider [phone] Reason for Visit * Reason Onset Date Comments Surgery Verification 10/15/2019 Encounter Details Date Type Department Care Team (Late st Contact Info) Description 10/15/2019 Telephone [facility] Orthopedic Surgery [address] [place] [address] Chi Iverson, DO [address] [facility] [address] [place] [address] Surgery Verification Social History Tobacco [...] of his surgery date and location PT [phone] documented in this encounter Plan of Treatment Not on file documented as of this encounter Visit Diagnoses Not on filedocumented in this encounter Additional Health Concerns Infection Onset Date Last Indicated Resolved Time COVID-19 Under Investigation 04/08/2020 04/08/2020 04/08/2020 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
--- OUTSIDE RECORDS SUMMARY | 2024-10-25 09:42 | XMS_ITS | Encounter Summary ---
Author Organization [facility] Address [address] [place] [address] Phone Care Team Providers Care Scientist Engineer Name Role Phone Dwight Abrams MD Unavailable [phone] Jorge Guevara DPM Unavailable [phone] Scottie Velez MD Primary Care Provider Encounter Details Date Type Department Care Team (Late st Contact Info) Description 10/05/2024 Telephone [facility]) - [facility] Pediatric Orthopedics [facility] 1st [place] [address] [place] [id number] Dwight Abrams MD [address] [place] [address] [address] [place] [address] Social History Tobacco Use Types Packs/Day Years [...] on file 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 Miki aware of appt date, time and location. He was appreciativeof the call. documented in this encounter Plan of Treatment [...] as needed documented as of this encounter Visit Diagnoses Not on filedocumented in this encounter Care Teams Scientist Engineer Relationship Specialty Start Date End Date Scottie Velez MD [address] [place] [id number] PCP - General Gastroenterology 11/19/23 Dwight Abrams MD [address] [facility] [address] [place] [address] Consulting Physician Pediatric Orthopedic Surgery 05/18/21 Jorge Guevara DPM [address] [place] [id number] Referring Physician Podiatry 08/16/22 documented as of this encounter
--- OUTSIDE RECORDS SUMMARY | 2024-10-25 09:42 | XMS_ITS | Encounter Summary ---
Author Organization [facility] Address [address] [place] [address] Phone Care Team Providers Care Implementation Project Coordinator Name Role Phone Juancho Medina MD Primary Care Provider [phone] Dwight Abrams MD Unavailable [phone] Jorge Guevara DPM Unavailable [phone] Unknown, Notinfile Primary Care Provider Unavail able Scottie Velez MD Primary Care Provider Encounter Details Date Type Department Care Team (Late st Contact Info) Description 02/06/2023 Orders Only [facility] PMR [phone] Scanning, Provider Social History Tobacco Use Types [...] on file 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 Gender Identity Not on file Sexual Orientation [...] on filedocumented in this encounter Care Teams Implementation Project Coordinator Relationship Specialty Start Date End Date Juancho Medina MD [address] [address] PCP - General Internal Medicine 03/14/20 06/11/23 Unknown, Notinfile PCP - General 10/08/23 11/18/23 [place] [address] [place] [id number] PCP - General Gastroenterology 11/19/23 Dwight Abrams MD [address] [address] Consulting Physician Pediatric Orthopedic Surgery 05/18/21 Jorge Guevara, [address] [place] [address] Referring Physician Podiatry 08/16/22 documented as of this encounter
[2024-10-27 07:09] LABS: Calprotectin, Fecal 5810 ug/g (0-120)
== END 2024-10-25 09:11 | disposition home or self-care (01) ==
PROVIDERS: PCP Internal Medicine Gastroenterology; Visit Provider Internal Medicine Gastroenterology
DX: K51.90 Ulcerative colitis, unspecified, without complications (principal)
CPT/HCPCS: 83993